=== PATIENT | female | born 1970 | race Caucasian/White ===

== ENCOUNTER → 2022-01-12 10:55 | Outpatient (BNVA) | payer BC, SELFPAY | PROVIDERS: Visit Provider Family Medicine | DX: I48.91 Unspecified atrial fibrillation (principal); J45.50 Severe persistent asthma, uncomplicated; E11.22 Type 2 diabetes mellitus with diabetic chronic kidney disease; I12.9 Hypertensive chronic kidney disease with stage 1 through stage 4 chronic kidney disease, or unspecified chronic kidney disease; N18.9 Chronic kidney disease, unspecified; D18.00 Hemangioma unspecified site; E78.2 Mixed hyperlipidemia; E66.01 Morbid (severe) obesity due to excess calories; Z79.01 Long term (current) use of anticoagulants | CPT/HCPCS: 80053; 80061; 83036; 84439; 84443; 85025 ==

== ENCOUNTER 2022-02-03 08:12 | Outpatient (CLI) | payer BC, MEDICAID, SELFPAY ==
--- NOTE | 2022-02-03 08:19 | XR_ITS ---
WS: [id number] RIGHT SHOULDER: 3 VIEW(S) TECHNIQUE: Internal and external rotation with Y view. HISTORY: Fall on 01/26/2022 COMPARISON: None available. Quality is limited by motion. No fracture or dislocation or soft tissue abnormality. Narrowing of the AC joints and glenohumeral joints. XR/XR shoulder RT min 2V* [id number] IMPRESSION: 1. No fracture identified but this examination is limited by motion on 2 of e films. 2. Mild AC joint and glenohumeral joint arthritis.
--- NOTE | 2022-02-03 08:19 | XR_ITS ---
WS: [id number] PELVIS: AP VIEW SUBMITTED HISTORY: fall twice last on 01/26/2022 COMPARISON: None available. Study compromised by body habitus. No fractures are identified. Symmetric appearance of the bones of the pelvis. No soft tissue abnormality. XR/XR pelvis min 3V [id number] IMPRESSION: No fracture identified.
== END 2022-02-03 08:13 | disposition home or self-care (01) ==
PROVIDERS: PCP Family Medicine; Visit Provider Family Medicine Adult Medicine
DX: M25.511 Pain in right shoulder (principal); M25.551 Pain in right hip; E66.01 Morbid (severe) obesity due to excess calories; W19.XXXA Unspecified fall, initial encounter; M19.011 Primary osteoarthritis, right shoulder
CPT/HCPCS: 72190; 73030

== ENCOUNTER → 2022-03-19 08:08 | Outpatient (BNVA) | payer BC, MEDICAID, SELFPAY | PROVIDERS: PCP Family Medicine; Visit Provider Internal Medicine Pulmonary Disease | DX: J45.50 Severe persistent asthma, uncomplicated (principal); Z79.52 Long term (current) use of systemic steroids; E66.01 Morbid (severe) obesity due to excess calories; Z68.45 Body mass index [BMI] 70 or greater, adult; R91.1 Solitary pulmonary nodule; G47.33 Obstructive sleep apnea (adult) (pediatric); R06.02 Shortness of breath; J45.909 Unspecified asthma, uncomplicated | CPT/HCPCS: 36415; 80053; 82785; 85025; 86003; 99204 ==

== ENCOUNTER 2022-04-10 13:52 | Outpatient (CLI) | payer BC, MEDICAID, SELFPAY ==
--- NOTE | 2022-04-10 14:30 | CT_ITS ---
WS: [id number] CT CHEST WITHOUT INTRAVENOUS CONTRAST HISTORY: lung nodule TECHNIQUE: Contiguous 5 mm axial imaging performed on the thorax. Coronal and sagittal reformats are submitted. All CT scans at [facility] use at least one of these dose optimization techniques: automated exposure control; mA and/or kV adjustment per patient size (includes targeted exams where dose is matched to clinical indication); or iterative reconstruction. CONTRAST: None DLP: 707.39 mGy.cm COMPARISON: None available. Quality of this examination is compromised by body habitus. Lungs and central airway: Well-circumscribed noncalcified pulmonary nodule in the posterior LEFT lowe r lobe measures 11 mm. Additional subsegmental linear atelectasis in the LEFT upper and LEFT lower lo bes. There is very mild groundglass attenuation within both lungs. No consolidation or pneumonia. Add itional subsegmental atelectasis in the RIGHT lower lobe and adjacent to the minor fissure. No endobr onchial lesion. Pleura: Normal. No pleural effusion. Heart and pericardium: Normal size heart with no pericardial effusion. Mediastinum and collin: No mediastinum or hilar adenopathy. Vessels: Dilated pulmonary artery to 3.9 cm. Normal size aorta. Chest wall and lower neck: No soft tissue masses. Upper abdomen: Small hiatal hernia. Prior cholecystectomy. Osseous structures: Degenerative disc disease throughout the thoracic spine. No fracture identified. CT/CT chest wo con [id number] IMPRESSION: 1. Quality of this examination is compromised by body habitus. 2. LEFT lower lobe well-circumscribed pulmonary nodule measures 11 mm. No prio r studies for comparison to evaluate for stability. Recommend PET/CT imaging ve rsus [address] follow-up for stability. 3. Additional subsegmental areas of atelectasis bilaterally. 4. Prior cholecystectomy. 5. Pulmonary hypertension.
== END 2022-04-10 13:53 | disposition home or self-care (01) ==
PROVIDERS: PCP Family Medicine; Visit Provider Family Medicine
DX: R91.1 Solitary pulmonary nodule (principal); J98.11 Atelectasis; Z90.49 Acquired absence of other specified parts of digestive tract; I27.20 Pulmonary hypertension, unspecified
CPT/HCPCS: 71250

== ENCOUNTER → 2022-04-20 12:33 | Outpatient (BNVA) | payer BC, MEDICAID, SELFPAY | PROVIDERS: PCP Family Medicine; Visit Provider Internal Medicine Cardiovascular Disease | DX: I48.91 Unspecified atrial fibrillation (principal); I13.0 Hypertensive heart and chronic kidney disease with heart failure and stage 1 through stage 4 chronic kidney disease, or unspecified chronic kidney disease; E11.22 Type 2 diabetes mellitus with diabetic chronic kidney disease; N18.9 Chronic kidney disease, unspecified; I50.9 Heart failure, unspecified; Z79.84 Long term (current) use of oral hypoglycemic drugs; E78.2 Mixed hyperlipidemia; E66.01 Morbid (severe) obesity due to excess calories; Z68.45 Body mass index [BMI] 70 or greater, adult | CPT/HCPCS: 99204 ==

== ENCOUNTER → 2022-04-23 10:33 | Outpatient (BNVA) | payer BC, MEDICAID, SELFPAY | PROVIDERS: PCP Family Medicine; Visit Provider Internal Medicine Pulmonary Disease | DX: J82.83 Eosinophilic asthma (principal); R91.1 Solitary pulmonary nodule; I48.91 Unspecified atrial fibrillation; Z99.81 Dependence on supplemental oxygen; Z79.01 Long term (current) use of anticoagulants; I50.9 Heart failure, unspecified; J45.50 Severe persistent asthma, uncomplicated; Z79.52 Long term (current) use of systemic steroids; Z68.45 Body mass index [BMI] 70 or greater, adult; E66.2 Morbid (severe) obesity with alveolar hypoventilation | CPT/HCPCS: 99214 ==

== ENCOUNTER → 2022-05-04 14:47 | Outpatient (BNVA) | payer BC, MEDICAID, SELFPAY | PROVIDERS: PCP Family Medicine; Visit Provider Family Medicine | DX: M54.16 Radiculopathy, lumbar region (principal); M62.838 Other muscle spasm; E66.01 Morbid (severe) obesity due to excess calories; R73.9 Hyperglycemia, unspecified; I50.9 Heart failure, unspecified; I48.91 Unspecified atrial fibrillation; I10 Essential (primary) hypertension | CPT/HCPCS: 80048; 83036; 83735; 83880 ==

== ENCOUNTER 2022-05-22 12:50 | Outpatient (CLI) | payer BC, MEDICAID, SELFPAY ==
--- NOTE | 2022-05-22 13:00 | USCV_ITS ---
Karly Sotomayor Age: 51 Gender: F : 1970 Exam Date: 05/22/2022 13:05 Ordering Phys: Fermin Flynn MD Technologist: Vanessa Miranda Exam Location: [facility] [place] Indication: LV and PHTN BP: 120 / 82 HR: 93 Rhythm: Sinus Technical Quality: Poor because of body habitus MEASUREMENTS (Male / Female) Normal Values 2D ECHO LV Diastolic Diameter PLAX 5.0 cm 4.2 - 5.9 / 3.9 - 5.3 cm LV Systolic Diameter PLAX 4.1 cm LV Chamber Size 1.7 cm IVS Diastolic Thickness 1.6 cm 0.6 - 1.0 / 0.6 - 0.9 cm IVS Systolic Thickness 1.7 cm LVPW Diastolic Thickness 2.1 cm 0.6 - 1.0 / 0.6 - 0.9 cm LVPW Systolic Thickness 1.7 cm RV Chamber Size 3.9 cm LVOT Diameter 2.2 cm LV Ejection Fraction 2D Teich 36.5 % LV Ejection Fraction MOD 2C 75.8 % LV Ejection Fraction 2C AL 76.9 % LA Diameter 4.4 cm LA Width 3.7 cm LA Height 5.0 cm RA Width 3.8 cm RA Height 5.1 cm Aorta at Sinotubular Diameter 3.0 cm IVC Diameter 3.2 cm M-MODE Aortic Annulus Diameter 4.2 cm LA Ao Ratio MM 1.3 MV E Point Septal Separation 0.5 cm DOPPLER AV Peak Velocity 170.0 cm/s LVOT Peak Velocity 116.0 cm/s AV Area Cont Eq vti 2.9 cm squared AV Area Cont Eq pk 2.6 cm squared MV Area PHT 4.0 cm squared Mitral E to A Ratio 1.5 MV E' Velocity 60.0 cm/s Mitral E to MV E' Ratio 8.6 Mitral E to LV E' Lateral Ratio 7.5 Mitral E to LV E' Septal Ratio 9.9 TR Peak Velocity 261.9 cm/s TR Peak Gradient 27.4 mmHg TR Mean Velocity 250.6 cm/s TR Mean Gradient 28.7 mmHg TR Velocity Time Integral 96.0 cm TV Peak E Velocity 66.0 cm/s Right Atrial Pressure 15.0 mmHg Pulmonary Artery Systolic Pressu 42.4 mmHg PV Peak Velocity 143.0 cm/s RV Acceleration Time 0.1 s RV Ejection Time 0.3 s RV AcT/ET 0.5 FINDINGS Left Ventricle Left ventricle is normal in size. LV systolic function is normal with EF 55 to 60%. No regional wall motion abnormalities are seen. Right Ventricle RV is normal in size and function. Right Atrium Normal in size Left Atrium Normal in size Mitral Valve Mitral valve is normal structurally. No significant stenosis or regurgitation seen. Aortic Valve Aortic valve is not well visualized. No significant stenosis or regurgitation seen. Tricuspid Valve Trace tricuspid regurgitation. Insufficient TR jet to calculate RVSP Pulmonic Valve Grossly normal Pericardium Normal Aorta Normal in size IVC CONCLUSIONS Limited quality echocardiogram because of poor ultrasonic windows. LV systolic function is normal with EF of 55 to 60%. No significant valvular abnormalities seen. Trace tricuspid regurgitation. No comparison studies are available Rubens Gomez MD (Electronically Signed) Final Date: 01 June 2022 09:45 S
== END 2022-05-22 12:51 | disposition home or self-care (01) ==
LOC: RAD 12:50
PROVIDERS: PCP Family Medicine; Visit Provider Internal Medicine Pulmonary Disease
DX: E66.01 Morbid (severe) obesity due to excess calories (principal); I07.1 Rheumatic tricuspid insufficiency
CPT/HCPCS: 93306; 99214

== ENCOUNTER 2022-06-30 09:47 | Observation (INO) | payer MEDICAID, SELFPAY ==
[2022-06-30] VITALS (64 sets, daily range): BP systolic 110–171; BP diastolic 64–88; PULSE 76–94; RESP 14–32; TEMP 36.2–36.8; O2SAT 87–100; BMI 96.5
--- NOTE | 2022-06-30 09:50 | ECG_ITS ---
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 Measurements Intervals [place] Rate: 81 P: 62 MS: 160 QRS: 59 QRSD: 143 T: 48 QT: 402 QTc: 468 Interpretive Statements SINUS RHYTHM RIGHT BUNDLE BRANCH BLOCK No previous ECG available for comparison Electronically Signed On 06-30-2022 10:40:43 CDT by Corrina Frazier M.D. [id number]
--- NOTE | 2022-06-30 09:50 | XRR_ITS ---
PROCEDURE INFORMATION: Exam: XR Chest Exam date and time: 06/30/2022 9:59 AM Age: 52 years old Clinical indication: Shortness of breath; Radiating and left-sided; Patient HX: History--chest pain since sat that just keeps increasing. PT states the pain is under her left breast and radiates to her back. Pain level is now at a 7-8 and was at a 6 per intern retail just minutes before. PT has HX of congestive heart failure and edema. SOB and headaches are also currently an issue; Additional info: Dyspnea/cough TECHNIQUE: Imaging protocol: Radiologic exam of the chest. Views: 1 view. COMPARISON: CT chest wo con [id number] 04/10/2022 2:14 PM FINDINGS: Lungs: There are normal lung volumes. Mild bilateral perihilar interstitial opacities are seen with some confluence in the lung bases. These findings may represent mild pulmonary edema. Underlying interstitial pneumonia cannot be completely excluded. Recommend correlation with clinical findings and follow-up. Pleural spaces: No pleural effusion. No pneumothorax. Heart/Mediastinum: Normal heart size. Normal mediastinum. Midline trachea. Bones/joints: No acute osseous abnormalities seen. Soft tissues: Multiple external densities are seen overlying the chest, limiting assessment. XR/XR chest 1V portable [id number] IMPRESSION: Mild bilateral perihilar interstitial opacities with some confluence in the lung bases. These findings may represent mild pulmonary edema. Underlying interstitial pneumonia cannot be completely excluded. Recommend correlation with clinical findings and follow-up.
--- NOTE | 2022-06-30 09:56 | W.ED.CHESTPA ---
HPI - Chest Pain General: Chief Complaint: Chest Pain Stated Complaint: CHEST PAIN Time Seen by Provider: 06/30/22 09:49 Source: patient Mode of arrival: ambulatory History of Present Illness: 52-year-old female presents emergency room from primary care doctor's office. She has been having chest pain for the last 3 days. Patient has no history of any coronary artery disease presented to the primary care doctor's office with O2 sat at 80% on room air. They were able to get up to 92% with 2 L by nasal cannula on arrival here she is conversationally dyspneic with continued chest pain. She denies any recent vomiting or diarrhea she had had a little bit of low-grade temperature. She was given 324 of aspirin in route as well as sublingual nitro and an inch of Nitropaste. Chest discomfort has improved some. She said this [facility] began with [facility] she had written note scooter cart to the back of the store the cart they did not have another cart so she had to walk back to her vehicle in the parking lot which precipitated episode of chest pain which had lasted since. Patient has a history of atrial fibrillation and congestive heart failure she is on apixaban. She denies being diabetic but her random glucose by EMS was in excess of 200. She is not currently on any medications but tells me they have been watching her glycosylated hemoglobin. complaint: chest pain Onset (ago): day(s) (3) Timing of current episode: episodic Prior episodes: Yes Onset: during exertion Pain location: right chest Pain radiation: none Severity: mild Quality: aching and heaviness Relieving factors: nothing Exacerbating factors: exertion Associated symptoms: Reports dyspnea and leg edema; Deny abdominal pain, diaphoresis, fever(s), nausea, palpitations, sense of impending doom, syncope or vomiting Treatment prior to arrival: aspirin, nitroglycerin and oxygen Review of Systems Const: Denies: fever(s), chills, fatigue, malaise or diaphoresis ENMT: Denies: throat pain, ear or mastoid pain, nasal discharge or nasal congestion Card: Reports: chest pain, edema and swelling of feet/ankles; Denies: palpitations, irregular heart rhythm or syncope Resp: Reports: dyspnea GI: Denies: abdominal pain, nausea or vomiting : Denies: flank pain, difficulty voiding, dysuria, urinary frequency or urinary urgency Skin/Breast: Denies: rash or pruritus PFSH ED PFSH: Medical History Afib Atrial fibrillation Chest pain CHF (congestive heart failure) Chronic anticoagulation CKD (chronic kidney disease) Depression Diabetes mellitus type 2, uncontrolled, with complications Diabetic retinopathy Essential hypertension Mixed dyslipidemia Morbid obesity with BMI of 70 and over, adult 06/30/2022 96.5 Obesity hypoventilation syndrome Obstructive sleep apnea Right bundle branch block Severe persistent asthma dependent on systemic steroids Solitary pulmonary nodule Steroid dependence Surgical History History of hysterectomy S/P cholecystectomy Family History Mother Myocardial infarct Stroke Hypertension Father Myocardial infarct Social History Smoking and tobacco status: never smoked Alcohol intake: never Female Reproductive History: Spontaneous abortions: No Physical Exam Const: GENERAL APPEARANCE: cooperative and comfortable ORIENTATION/CONSCIOUSNESS: Yes awake, Yes oriented to person, Yes oriented to place and Yes oriented to time HENMT: COMMON NORMALS: normocephalic and atraumatic HEAD & SCALP: normocephalic and atraumatic Resp: COMMON NORMALS: normal respiratory effort, No retractions, No use of accessory muscles and clear to auscultation bilaterally AUSCULTATION: clear to auscultation bilaterally Cardio: COMMON NORMALS: regular rate, regular rhythm and No murmurs present (Cardio) RATE: regular rate RHYTHM: regular rhythm GI: COMMON NORMALS: Soft to palpation and No hepatosplenomegaly present AUSCULTATION: Yes normoactive bowel sounds PALPATION: Yes Soft to palpation, No Tenderness to palpation present (GI), No Guarding due to palpation present (GI) and Yes No hepatosplenomegaly present Extremity: COMMON NORMALS: capillary refill normal and no calf tenderness Neuro: SENSORIUM/ORIENTATION: Yes oriented to person, Yes oriented to place and Yes oriented to time Skin: COMMON NORMALS: no rashes or lesions noted GENERAL SKIN EXAM: no rashes or lesions noted Course Vital Signs: Vital signs: Vital Signs Temperature 97.8 F 07/01/22 14:53 Pulse Rate 88 07/01/22 14:53 Respiratory Rate 16 07/01/22 14:53 Blood Pressure 135/82 07/01/22 14:53 Pulse Oximetry 94 07/01/22 14:53 Oxygen Delivery Me thod 07/01/22 12:00 Oxygen Flow Rate 3 07/01/22 11:33 MDM - Chest Pain Medical Decision Making Worsening congestive heart failure. Patient has severe hypoventilation due to super morbid obesity with a BMI of 96.5. She also has severe apnea she is having some chest pain as well. Patient will be admitted discussed with hospitalist. COVID swab was done and is negative she was diuresed to the emergency room had some improvement. Orders written. Medical Records I reviewed the patient's medical records. Lab Data I reviewed the patient's lab results. : 06/30/22 09:55 07/01/22 05:16 Radiology Impressions Chest X-Ray 06/30/22 09:50 IMPRESSION: Mild bilateral perihilar interstitial opacities with some confluence in the lung bases. These findings may represent mild pulmonary edema. Underlying interstitial pneumonia cannot be completely excluded. Recommend correlation with clinical findings and follow-up. Chest CTA 06/30/22 12:52 IMPRESSION: Limited diagnostic examination due to body habitus and suboptimal opacification of the pulmonary arteries. 1. Proximal main pulmonary arteries are normal. Segmental and subsegmental pulmonary arteries not well evaluated. 2. Stable 11 mm pulmonary nodule LEFT lower lobe. 3. Perihilar hazy groundglass infiltrates throughout both lungs with air trapping and bronchovascular thickening. Findings suspicious for interstitial pulmonary edema versus less likely viral pneumonia/Covid 19 pneumonia. 4. Subsegmental atelectasis in the lung bases with trace pleural fluid. No focal pneumonia. 5. Prior cholecystectomy. 6. Cardiomegaly. Notified Yoni Chapman DO at 06/30/2022 1:57 PM. Laboratory Results WBC 9.9 10^3/uL (4.0-10.0) 06/30/22 09:55 RBC 4.28 10^6/uL (4.1-5.3) 06/30/22 09:55 Hgb 12.5 g/dL (11.5-15.3) 06/30/22 09:55 Hct 40.1 % (37.0-47.0) 06/30/22 09:55 MCV 93.7 fl (81-99) 06/30/22 09:55 MCH 29.2 pg (28.0-34.0) 06/30/22 09:55 MCHC 31.2 g/dL (30.0-36.0) 06/30/22 09:55 RDW 13.2 % (12.1-15.1) 06/30/22 09:55 Plt Count 194 10^3/cmm (130-400) 06/30/22 09:55 MPV 10.1 fL (7.4-10.4) 06/30/22 09:55 Neut % (Auto) 78.2 % 06/30/22 09:55 Lymph % (Auto) 13.1 % 06/30/22 09:55 [place] % (Auto) 6.3 % 06/30/22 09:55 Eos % (Auto) 1.5 % 06/30/22 09:55 Baso % (Auto) 0.3 % 06/30/22 09:55 Neut # (Auto) 7.73 10^3/uL (1.8-7.7) H 06/30/22 09:55 Lymph # (Auto) 1.3 10^3/uL (0.8-4.8) 06/30/22 09:55 [place] # (Auto) 0.6 10^3/uL (0.2-0.9) 06/30/22 09:55 Eos # (Auto) 0.2 10^3/uL (0.0-0.8) 06/30/22 09:55 Baso # (Auto) 0.0 10^3/uL (0.0-0.1) 06/30/22 09:55 Nucleated RBC % (auto) 0 % 06/30/22 09:55 Nucleated RBCs # 0.0 /100WBC 06/30/22 09:55 Specimen Type Arterial 06/30/22 10:36 Sample Site Radial, left 06/30/22 10:36 ABG pH 7.38 (7.35-7.45) 06/30/22 10:36 ABG pCO2 45.0 mmHg (35-45) 06/30/22 10:36 ABG pO2 77.4 mmHg (80.0-100.0) L 06/30/22 10:36 ABG HCO3 26.4 mmol/L (22-26) H 06/30/22 10:36 ABG O2 Saturation 95.8 06/30/22 10:36 ABG Base Excess 0.8 mmol/L (-2.0-2.0) 06/30/22 10:36 Florin Test Pos 06/30/22 10:36 A-a O2 Gradient 2.3 mmHg (5-10) L 06/30/22 10:36 Hematocrit 37.3 % (37-47) 06/30/22 10:36 Hgb O2 Saturation 93.6 % (95-100) L 06/30/22 10:36 Carboxyhemoglobin 1.4 %THgb (0.4-20.1) 06/30/22 10:36 Methemoglobin 0.8 % (0.4-1.5) 06/30/22 10:36 Total Hemoglobin 12.2 g/dL (12-16) 06/30/22 10:36 Sodium 138.0 mmol/L (131-143) 06/30/22 10:36 Potassium 4.3 mmol/L (3.5-5.0) 06/30/22 10:36 Glucose 169.0 mg/dL (70-115) H 06/30/22 10:36 Ionized Calcium 1.2 mmol/L (1.1-1.4) 06/30/22 10:36 O2 Delivery Device Nc 06/30/22 10:36 O2 Liters/Min 5.0 % 06/30/22 10:36 Therapist Respiratory ID Cak 06/30/22 10:36 Sodium 138 mmol/L (136-145) 06/30/22 09:55 Potassium 4.5 mmol/L (3.5-5.1) 06/30/22 09:55 Chloride 101 mmol/L (98-107) 06/30/22 09:55 Carbon Dioxide 27 mmol/L (22-29) 06/30/22 09:55 Anion Gap 14.5 (5-19) 06/30/22 09:55 BUN 13 mg/dL (6-20) 06/30/22 09:55 Creatinine 0.5 mg/dL (0.5-0.9) 06/30/22 09:55 GFR Calculation 129.1 mL/min (90-130) 06/30/22 09:55 Glucose 168 mg/dL (65-115) H 06/30/22 09:55 Calculated Osmolality 290 mOsm/kg (285-295) 06/30/22 09:55 Lactic Acid 1.3 mmol/L (0.5-2.2) 06/30/22 09:58 Calcium 9.2 mg/dL (8.5-10.5) 06/30/22 09:55 Total Bilirubin 0.5 mg/dL (0.15-1.2) 06/30/22 09:55 AST 13 U/L (0-32) 06/30/22 09:55 ALT 19 U/L (0-33) 06/30/22 09:55 Alkaline Phosphatase 132 U/L (35-105) H 06/30/22 09:55 Creatine Kinase 53 U/L (26-192) 06/30/22 09:55 Troponin T Baseline 15 ng/L (0-10) H 06/30/22 09:55 Troponin T 120 Minute 11.11 ng/L (0-10) H 06/30/22 11:30 Delta Troponin T -3.89 ABS# (0-10) L 06/30/22 11:30 NT-Pro-B Natriuret Pep 51 pg/mL (0-125) 06/30/22 09:55 Total Protein 6.5 g/dL (6.6-8.7) L 06/30/22 09:55 Albumin 3.9 g/dL (3.5-5.2) 06/30/22 09:55 Globulin 2.6 g/dL (1.3-4.6) 06/30/22 09:55 Procalcitonin 0.03 ng/mL (0-0.5) 06/30/22 11:30 Prolactin 22.70 ng/mL (4.8-23.3) 06/30/22 09:55 Prolactin Cancelled 06/30/22 09:55 Urine Color Yellow (Yellow) 06/30/22 10: Urine Appearance Clear (CLEAR) 06/30/22 10:22 Urine pH 6 (5-7) 06/30/22 10: Ur Specific [place] 1.015 (1.005-1.030) 06/30/22 10: Urine Protein Neg (Negative) 06/30/22 10: Urine Glucose (UA) Norm (Normal) 06/30/22 10:22 Urine Ketones Negative (Negative) 06/30/22 10:22 Urine Blood 2+ (Negative) H 06/30/22 10:22 Urine Nitrate Negative (Negative) 06/30/22 10:22 Urine Bilirubin Neg (Negative) 06/30/22 10:22 Urine Urobilinogen Norm mg/dL (Negative) 06/30/22 10:22 Ur Leukocyte Esterase Negative (Negative) 06/30/22 10:22 Urine RBC 5-10 /hpf (0-2) H 06/30/22 10:22 Urine WBC 0-4 /hpf (0-5) H 06/30/22 10:22 Ur Squamous Epith Cells 0-4 /hpf (0-5) H 06/30/22 10: Amorphous Sediment Not Reportable 06/30/22 10:22 Urine Bacteria Trace /hpf (NONE) 06/30/22 10:22 Coronavirus 229E (PCR) Not detected (NOT DETECT) 06/30/22 14:16 SARS-CoV-2 (PCR) Not detected (NOT DETECT) 06/30/22 14:16 Discharge Plan Discharge Patient Disposition: Admitted As Inpatient Admit Provider: Va Armas Clinical Impression: CHF (congestive heart failure), Morbid obesity with BMI of 70 and over, adult, Diabetes mellitus type 2, uncontrolled, with complications, CKD (chronic kidney disease), Atypical chest pain, Atrial fibrillation, Hypoventilation associated with obesity Condition: Stable Discharge Diet: Cardiac Discharge Activity: Increase activity as tolerated Coding Level of Care Code ED Rn Telephone Triage for Chg Fwd Exam Detailed
--- NOTE | 2022-06-30 10:06 | PC.NURSE ---
PT PLACED ON CONTINUOUS NIBP, SPO2, AND CM
[2022-06-30 10:08] LABS: Basophils % 0.3 %; Eosinophils # 0.2 10^3/uL (0.0-0.8); Eosinophils % 1.5 %; Hematocrit 40.1 % (37.0-47.0); Hemoglobin 12.5 g/dL (11.5-15.3); Lymphocytes # 1.3 10^3/uL (0.8-4.8); Lymphocytes % 13.1 %; Mean Corpuscular HGB Conc 31.2 g/dL (30.0-36.0); Mean Corpuscular Hemoglobin 29.2 pg (28.0-34.0); Mean Corpuscular Volume 93.7 fl (81-99); Mean Platelet Volume 10.1 fL (7.4-10.4); Monocytes # 0.6 10^3/uL (0.2-0.9); Monocytes % 6.3 %; Neutrophils # 7.73 10^3/uL (1.8-7.7); Neutrophils % 78.2 %; Nucleated Red Blood Cells % 0 %; Platelet Count 194 10^3/cmm (130-400); Red Blood Count 4.28 10^6/uL (4.1-5.3); Red Cell Distribution Width 13.2 % (12.1-15.1); White Blood Count 9.9 10^3/uL (4.0-10.0)
[2022-06-30 10:22] LABS: Lactic Sepsis W/Reflex 1.3 mmol/L (0.5-2.2)
[2022-06-30 10:29] LABS: Troponin(5th) Baseline 15 ng/L (0-10)
[2022-06-30 10:36] LABS: Alanine Aminotransferase 19 U/L (0-33); Albumin Level 3.9 g/dL (3.5-5.2); Alkaline Phosphatase 132 U/L (35-105); Aspartate Amino Transferase 13 U/L (0-32); Blood Urea Nitrogen 13 mg/dL (6-20); Calcium 9.2 mg/dL (8.5-10.5); Carbon Dioxide 27 mmol/L (22-29); Chloride 101 mmol/L (98-107); Creatine Phosphokinase 53 U/L (26-192); Globulin 2.6 g/dL (1.3-4.6); Glomerular Filtration Rate 129.1 mL/min (90-130); Glucose 168 mg/dL (65-115); NT Pro B Type Natriuretic Pept 51 pg/mL (0-125); Osmolality Calculated 290 mOsm/kg (285-295); Sodium 138 mmol/L (136-145); Total Bilirubin 0.5 mg/dL (0.15-1.2); Total Protein 6.5 g/dL (6.6-8.7)
[2022-06-30 10:41] LABS: Anion Gap 14.5 (5-19); Potassium 4.5 mmol/L (3.5-5.1)
[2022-06-30 10:44] LABS: Add Urine Culture? No; Add Urine Microscopic? YES; Bacteria Urine TRACE /hpf; Bilirubin Urine Neg (Negative); Blood Urine 2+ (Negative); Glucose Urine UA Norm (Normal); Ketones Urine Negative (Negative); Leukocyte Esterase Urine Negative (Negative); Nitrate Urine Negative (Negative); Protein Urine Neg (Negative); Specific Gravity, Urine 1.015 (1.005-1.030); Squamous Epithelial Cell Urine 0-4 /hpf (0-5); Urine Appearance Clear (CLEAR); Urine Color Yellow (Yellow); Urobilinogen Urine Norm (Negative); WBC Urine 0-4 /hpf (0-5); pH Urine 6 (5-7)
[2022-06-30 10:47] LABS: ABG PH Result 7.38 (7.35-7.45); Alveolar-Arterial Oxygen Gradi 2.3 mmHg (5-10); Arterial Blood Gas Hematocrit 37.3 % (37-47); Base Excess ABG 0.8 mmol/L (-2.0-2.0); Blood Gas Allen Test Pos; Blood Gas Operator Identificat CAK; Blood Gas Sample Site Radial, left; Blood Gas Sample Type Arterial; Carboxyhemoglobin 1.4 %THgb (0.4-20.1); HCO3 ABG 26.4 mmol/L (22-26); HGB O2 Sat 93.6 % (95-100); Ionized Calcium Level - ABG 1.2 mmol/L (1.1-1.4); Methemoglobin 0.8 % (0.4-1.5); Oxygen Device NC; Oxygen Saturation ABG 95.8; PO2 ABG 77.4 mmHg (80.0-100.0); Potassium Level - ABG 4.3 mmol/L (3.5-5.0); Total Hemoglobin 12.2 g/dL (12-16)
[2022-06-30 11:58] LABS: Troponin 5 2HR 11.11 ng/L (0-10)
[2022-06-30 11:59] LABS: Troponin 5 2HR Delta -3.89 ABS# (0-10)
--- NOTE | 2022-06-30 11:59 | ECG_ITS ---
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 Measurements Intervals [place] Rate: 81 P: 60 [place]: 152 QRS: 57 QRSD: 149 T: 47 QT: 410 QTc: 477 Interpretive Statements SINUS RHYTHM RIGHT BUNDLE BRANCH BLOCK [120+ ms QRS DURATION, UPRIGHT V1, 40+ ms S IN I/aVL/V4/V5/V6] Compared to ECG 06/30/2022 09:57:01 No significant changes Electronically Signed On 07-01-2022 5:55:02 CDT by Corrina Frazier M.D. [id number]
[2022-06-30] MEDS: FUROsemide 10 mg/mL SDV 10mL 60 MG IVP (12:15)
--- NOTE | 2022-06-30 12:52 | CT_ITS ---
WS: [id number] CTA OF THE CHEST WITH PULMONARY EMBOLISM PROTOCOL TECHNIQUE: High-resolution contrast enhanced CTA of the chest with coronal and sagittal reformatted i mages with pulmonary embolism protocol. MIP images are also reviewed. CLINICAL INFORMATION: Hypoxia COMPARISON: CT April 10, 2022 DLP: 1112.[address] scans at [facility] use at least one of these dose optimization techniques: automated e xposure control; mA and/or kV adjustment per patient size (includes targeted exams where dose is matc hed to clinical indication); or iterative reconstruction. FINDINGS: Suboptimal examination due to contrast bolus and body habitus. Proximal main pulmonary arteries are normal. Segmental and subsegmental pulmonary arteries not well e valuated. Moderate chronic emphysematous changes with hyperinflation. Subsegmental atelectasis in tiny g bases. Diffuse perihilar hazy groundglass infiltrates throughout both lungs with air trapping can b e seen with interstitial pulmonary edema versus less likely viral pneumonia. Trace pleural fluid. Sta ble LEFT lower lobe nodule measuring 11 mm. Cardiomegaly. Normal caliber thoracic aorta. Normal GE junction. Cholecystectomy clips. Adrenal glands are normal. CT/CT angio chest PE protcl [id number] IMPRESSION: Limited diagnostic examination due to body habitus and suboptimal o pacification of the pulmonary arteries. 1. Proximal main pulmonary arteries are normal. Segmental and subsegmental pul monary arteries not well evaluated. 2. Stable 11 mm pulmonary nodule LEFT lower lobe. 3. Perihilar hazy groundglass infiltrates throughout both lungs with air layla ing and bronchovascular thickening. Findings suspicious for interstitial pulmon charbel edema versus less likely viral pneumonia/Covid 19 pneumonia. 4. Subsegmental atelectasis in the lung bases with trace pleural fluid. No foc al pneumonia. 5. Prior cholecystectomy. 6. Cardiomegaly. Notified Yoni Chapman DO at 06/30/2022 1:57 PM.
[2022-06-30] MEDS: iohexol 350 mg/mL 100 mL Btl IV (13:32)
[2022-06-30 13:38] LABS: Procalcitonin 0.03 ng/mL (0-0.5)
--- NOTE | 2022-06-30 14:02 | PC.PHAR ---
PT STATES SHE TAKES CARE OF HER OWN MEDICATIONS-EXT MED HISTORY SHOWS BUMETANIDE 2MG DAILY FILLED 06/02/22 30D/S RX WRITTEN 2MG BID PT STATES THE DR TOLD HER TO TAKE 1 TO 3 TABS BID PRN-RX WRITTEN 05/04/22 FOR METOPROLOL TARTRATE 75MG BID RX FILLED 50MG BID ON 06/04/22 30D/S PT STATES PHARMACY FILLED WRONG RX IT IS 75MG BID-RX FILLED 06/26/22 15D/S FOR BACTRIM DS 1 TAB DAILY-RX WRITTEN ON 03/19/22 1 TAB ON MON WED AND WED PT STATES TAKES LIKE ENTERED THREE TIMES A WEEK-NOTES ARE MADE IN THE PHARMACY COMMENTS
--- NOTE | 2022-06-30 14:43 | P.HP_ITS ---
Providers/Chief Complaint Admitting Physician: Va Armas MD Primary Care Provider: Pal Caballero DO Chief Complaint: Chest pain and difficulty breathing History of Present Illness Karly Sotomayor is a 52 year old female who presented originally to the general [facility]'s office with chief complaint of chest pain and difficulty breathing. She started getting more short of breath than her baseline on Wednesday. She is gotten to the point that she cannot really walk more than 5 steps without getting too short of breath. She utilizes assistive devices for ambulation. Ov er the weekend she was short of breath at rest as well as with exertion. She denies much cough. Has not really been wheezing per se. No upper respiratory symptoms. When she tries to take in a deep breath she has pain across her chest, predominantly on the right side and going through to her back. She has been using more than her baseline 2 to 3 L of oxygen at times. She has also utilized her CPAP sometimes when she has been very short of breath the last few days. No known sick contacts. At Dr. Sánchez's office she was found to have low oxygen levels dropping into the 80s and hypertension. She was sent to the emergency room for further evaluation. proBNP was 51. CTA of the chest showed normal proximal main pulmonary arteries. Subsegmental and segmental pulmonary arteries were not well evaluated. She had a stable pulmonary nodule in the left lower lobe. Perihilar hazy groundglass infiltrates were noted throughout both lungs with air trapping and bronchovascular thickening. Atelectasis was also noted. No areas of focal pneumonia were identified. Findings were described as suspicious for interstitial pulmonary edema versus less likely viral pneumonia or COVID-19. COVID PCR was negative. Patient received 60 mg of IV Lasix in the emergency room. In talking with her she does not take bumetanide regularly as the diuretic effect interferes with her activities of daily living. Last took a dose on or Wednesday last week. She does report increased swelling since then. At most she may take bumetanide maybe 3 times a week. She states that her weight was up about 50 pounds on the scale at her doctor's office today compared to prior. She is being admitted for continued diuresis in the setting of increased oxygen requirement. Review of Systems Const: Reports: change in weight (Gain) and fatigue; Denies: fever(s) or chills ENMT: Denies: throat pain or nasal congestion Card: Reports: chest pain, edema, dyspnea on exertion and orthopnea; Denies: syncope Resp: Reports: dyspnea and pain on inspiration; Denies: productive cough, wheezing, hemoptysis or chest congestion GI: Denies: abdominal pain, nausea, vomiting, diarrhea or constipation : Denies: hematuria Musc: Reports: back pain (Chronic) and extremity pain (Chronic) Skin/Breast: Reports: dry skin Neuro: Reports: numbness in extremities (Left foot chronically numb from prior trauma), weakness in extremities (Chronic) and difficulty walking (Chronic) Charles/Lymph: Reports: easy bruising Medications/Allergies Home Medications Medication Instructions Recorded Confirmed Last Taken Type black cohosh 200 mg capsule 200 mg PO QAM 01/12/22 06/30/22 06/30/22 07:00 History multivitamin 1 tab PO QAM 01/12/22 06/30/22 06/30/22 History omega 5-war-ctm-fish oil 100 1 cap PO DAILY@12 01/12/22 06/30/22 06/29/22 History mg-160 mg-1,000 mg capsule (Fish Oil) albuterol sulfate 2.5 mg/3 mL 2.5 mg (3 mL) inhalation Q6H PRN 02/05/22 06/30/22 Unknown Rx (0.083 %) solution for nebulization shortness of breath or wheezing #90 mL sulfamethoxazole 800 See Rx Instructions PO DAILY 03/19/22 06/30/22 Unknown History mg-trimethoprim 160 mg tablet apixaban 5 mg tablet (Eliquis) 5 mg PO BID atrial fib #60 tabs 04/01/22 06/30/22 06/30/22 07:00 Rx bumetanide 2 mg tablet 2 - 6 mg PO BID PRN Edema 04/20/22 06/30/22 Unknown History diphenhydramine HCl 25 mg capsule 25 mg PO BEDTIME 04/20/22 06/30/22 06/29/22 History (Benadryl) guaifenesin 400 mg tablet 400 mg PO BID 04/20/22 06/30/22 06/30/22 History metoprolol tartrate 75 mg tablet 75 mg PO BID #180 tabs 05/04/22 06/30/22 06/30/22 Rx semaglutide 0.25 mg or 0.5 mg (2 See Rx Instructions SUBCUT 06/02/22 06/30/22 06/30/22 Rx mg/1.5 mL) subcutaneous pen .COMPLEX #1.5 mL 0.25MG injector (Ozempic) budesonide-formoterol HFA 160 2 puff inhalation BID #10.2 grams 06/11/22 Unknown Rx mcg-4.5 mcg/actuation aerosol inhaler (Symbicort) tiotropium bromide 2.5 2 puff inhalation DAILY #4 grams 06/11/22 06/30/22 Unknown Rx mcg/actuation mist for inhalation (Spiriva Respimat) gabapentin 800 mg tablet 800 mg PO TID #90 tabs 06/22/22 06/30/22 06/30/22 Rx albuterol sulfate 90 mcg/actuation 1 inh inhalation QID PRN Shortness 06/30/22 06/30/22 Unknown History aerosol inhaler Of Breath atorvastatin 80 mg tablet 80 mg PO BEDTIME 06/30/22 06/30/22 06/29/22 History citalopram 20 mg tablet 20 mg PO BEDTIME 06/30/22 06/30/22 06/29/22 History cyclobenzaprine 10 mg tablet See Rx Instructions .Route .COMPLEX 06/30/22 06/30/22 06/30/22 History hydroxyzine HCl 25 mg tablet 25 mg PO TID 06/30/22 06/30/22 06/30/22 History magnesium oxide 200 mg PO DAILY@12 06/30/22 06/30/22 06/29/22 History montelukast 10 mg tablet 10 mg PO QAM breathing 06/30/22 06/30/22 06/30/22 History potassium chloride 20 mEq 20 meq PO DAILY@12 06/30/22 06/30/22 06/29/22 History tablet,extended release prednisone 20 mg tablet 20 mg PO QAM 06/30/22 06/30/22 06/30/22 History spironolactone 50 mg tablet 50 mg PO BEDTIME 06/30/22 06/30/22 06/29/22 History tramadol 50 mg tablet See Rx Instructions .Route .COMPLEX 06/30/22 06/30/22 06/30/22 History valsartan 80 mg tablet 80 mg PO BEDTIME 06/30/22 06/30/22 06/29/22 History Allergies Allergy/AdvReac Type Severity Reaction Status Date / Time adhesive tape Allergy ALGY-Bliste Verified 06/30/22 13:47 r latex Allergy ALGY-Bliste Verified 06/30/22 13:47 r Penicillins Allergy ALGY-Hives Verified 06/30/22 13:47 PFSH Acute PFSH: Medical History (Updated 06/30/22 @ 20:31 by Va Armas MD) Atrial fibrillation CHF (congestive heart failure) CKD (chronic kidney disease) Depression Diabetes mellitus type 2, uncontrolled, with complications Diabetic retinopathy Essential hypertension Mixed dyslipidemia Morbid obesity with BMI of 70 and over, adult 06/30/2022 96.5 Obesity hypoventilation syndrome Obstructive sleep apnea Right bundle branch block Severe persistent asthma dependent on systemic steroids Solitary pulmonary nodule Steroid dependence Surgical History (Updated 06/30/22 @ 20:30 by Va Armas MD) History of hysterectomy S/P cholecystectomy Family History Mother Myocardial infarct Stroke Hypertension Father Myocardial infarct Social History Smoking and tobacco status: never smoked Alcohol intake: never Female Reproductive History: Spontaneous abortions: No Vitals/I&O/Wt Last Vital Signs Temp 98.3 F 06/30/22 09:49 Pulse 80 06/30/22 12:22 Resp 16 06/30/22 12:22 BP 134/88 06/30/22 12:22 Pulse Ox 95 06/30/22 12:22 O2 Del Method 06/30/22 12:22 O2 Flow Rate 3 06/30/22 12:22 06/29/22 06/30/22 06/30/22 22:59 06:59 14:59 Output Total 4000 / 4000 Balance -4000 / -4000 Weight last 48 hrs Weight 263.084 kg Physical Exam Narrative: Constitutional: Awake and alert, able to provide history HEENT: Normocephalic, atraumatic, extraocular movements intact, dry lips, moist mucous membranes Neck: Large but supple Respiratory: Decreased breath sounds, no wheezing appreciated, no accessory muscle use Cardiovascular: Irregularly irregular Abdomen: Soft, obese, positive bowel sounds, nontender : Hairston catheter in place Extremities: No ankle edema Skin: Skin is dry mild stasis changes Neuro: Speech clear, face symmetric, moves all extremities Psych: Anxious, normal affect Urinary Catheter Management: Hairston: Cath Placed During This Visit: yes Urinary Catheter Date of Insertion: 06/30/22 Urinary Catheter Time of Insertion: 10:27 Data : 06/30/22 09:55 06/30/22 09:55 Other Labs: Radiology Impressions Chest X-Ray 06/30/22 09:50 IMPRESSION: Mild bilateral perihilar interstitial opacities with some confluence in the lung bases. These findings may represent mild pulmonary edema. Underlying interstitial pneumonia cannot be completely excluded. Recommend correlation with clinical findings and follow-up. Chest CTA 06/30/22 12:52 IMPRESSION: Limited diagnostic examination due to body habitus and suboptimal opacification of the pulmonary arteries. 1. Proximal main pulmonary arteries are normal. Segmental and subsegmental pulmonary arteries not well evaluated. 2. Stable 11 mm pulmonary nodule LEFT lower lobe. 3. Perihilar hazy groundglass infiltrates throughout both lungs with air trapping and bronchovascular thickening. Findings suspicious for interstitial pulmonary edema versus less likely viral pneumonia/Covid 19 pneumonia. 4. Subsegmental atelectasis in the lung bases with trace pleural fluid. No focal pneumonia. 5. Prior cholecystectomy. 6. Cardiomegaly. Notified Yoni Chapman DO at 06/30/2022 1:57 PM. Laboratory Results WBC 9.9 10^3/uL (4.0-10.0) 06/30/22 09:55 RBC 4.28 10^6/uL (4.1-5.3) 06/30/22 09:55 Hgb 12.5 g/dL (11.5-15.3) 06/30/22 09:55 Hct 40.1 % (37.0-47.0) 06/30/22 09:55 MCV 93.7 fl (81-99) 06/30/22 09:55 MCH 29.2 pg (28.0-34.0) 06/30/22 09:55 MCHC 31.2 g/dL (30.0-36.0) 06/30/22 09:55 RDW 13.2 % (12.1-15.1) 06/30/22 09:55 Plt Count 194 10^3/cmm (130-400) 06/30/22 09:55 MPV 10.1 fL (7.4-10.4) 06/30/22 09:55 Neut % (Auto) 78.2 % 06/30/22 09:55 Lymph % (Auto) 13.1 % 06/30/22 09:55 Greene % (Auto) 6.3 % 06/30/22 09:55 Eos % (Auto) 1.5 % 06/30/22 09:55 Baso % (Auto) 0.3 % 06/30/22 09:55 Neut # (Auto) 7.73 10^3/uL (1.8-7.7) H 06/30/22 09:55 Lymph # (Auto) 1.3 10^3/uL (0.8-4.8) 06/30/22 09:55 Greene # (Auto) 0.6 10^3/uL (0.2-0.9) 06/30/22 09:55 Eos # (Auto) 0.2 10^3/uL (0.0-0.8) 06/30/22 09:55 Baso # (Auto) 0.0 10^3/uL (0.0-0.1) 06/30/22 09:55 Nucleated RBC % (auto) 0 % 06/30/22 09:55 Nucleated RBCs # 0.0 /100WBC 06/30/22 09:55 Specimen Type Arterial 06/30/22 10:36 Sample Site Radial, left 06/30/22 10:36 ABG pH 7.38 (7.35-7.45) 06/30/22 10:36 ABG pCO2 45.0 mmHg (35-45) 06/30/22 10:36 ABG pO2 77.4 mmHg (80.0-100.0) L 06/30/22 10:36 ABG HCO3 26.4 mmol/L (22-26) H 06/30/22 10:36 ABG O2 Saturation 95.8 06/30/22 10:36 ABG Base Excess 0.8 mmol/L (-2.0-2.0) 06/30/22 10:36 Florin Test Pos 06/30/22 10:36 A-a O2 Gradient 2.3 mmHg (5-10) L 06/30/22 10:36 Hematocrit 37.3 % (37-47) 06/30/22 10:36 Hgb O2 Saturation 93.6 % (95-100) L 06/30/22 10:36 Carboxyhemoglobin 1.4 %THgb (0.4-20.1) 06/30/22 10:36 Methemoglobin 0.8 % (0.4-1.5) 06/30/22 10:36 Total Hemoglobin 12.2 g/dL (12-16) 06/30/22 10:36 Sodium 138.0 mmol/L (131-143) 06/30/22 10:36 Potassium 4.3 mmol/L (3.5-5.0) 06/30/22 10:36 Glucose 169.0 mg/dL (70-115) H 06/30/22 10:36 Ionized Calcium 1.2 mmol/L (1.1-1.4) 06/30/22 10:36 O2 Delivery Device Nc 06/30/22 10:36 O2 Liters/Min 5.0 % 06/30/22 10:36 Market Analyst ID Cak 06/30/22 10:36 Sodium 138 mmol/L (136-145) 06/30/22 09:55 Potassium 4.5 mmol/L (3.5-5.1) 06/30/22 09:55 Chloride 101 mmol/L (98-107) 06/30/22 09:55 Carbon Dioxide 27 mmol/L (22-29) 06/30/22 09:55 Anion Gap 14.5 (5-19) 06/30/22 09:55 BUN 13 mg/dL (6-20) 06/30/22 09:55 Creatinine 0.5 mg/dL (0.5-0.9) 06/30/22 09:55 GFR Calculation 129.1 mL/min (90-130) 06/30/22 09:55 Glucose 168 mg/dL (65-115) H 06/30/22 09:55 Calculated Osmolality 290 mOsm/kg (285-295) 06/30/22 09:55 Lactic Acid 1.3 mmol/L (0.5-2.2) 06/30/22 09:58 Calcium 9.2 mg/dL (8.5-10.5) 06/30/22 09:55 Total Bilirubin 0.5 mg/dL (0.15-1.2) 06/30/22 09:55 AST 13 U/L (0-32) 06/30/22 09:55 ALT 19 U/L (0-33) 06/30/22 09:55 Alkaline Phosphatase 132 U/L (35-105) H 06/30/22 09:55 Creatine Kinase 53 U/L (26-192) 06/30/22 09:55 Troponin T Baseline 15 ng/L (0-10) H 06/30/22 09:55 Troponin T 120 Minute 11.11 ng/L (0-10) H 06/30/22 11:30 Delta Troponin T -3.89 ABS# (0-10) L 06/30/22 11:30 NT-Pro-B Natriuret Pep 51 pg/mL (0-125) 06/30/22 09:55 Total Protein 6.5 g/dL (6.6-8.7) L 06/30/22 09:55 Albumin 3.9 g/dL (3.5-5.2) 06/30/22 09:55 Globulin 2.6 g/dL (1.3-4.6) 06/30/22 09:55 Procalcitonin 0.03 ng/mL (0-0.5) 06/30/22 11:30 Prolactin 22.70 ng/mL (4.8-23.3) 06/30/22 09:55 Prolactin Cancelled 06/30/22 09:55 Urine Color Yellow (Yellow) 06/30/22 10:22 Urine Appearance Clear (CLEAR) 06/30/22 10:22 Urine pH 6 (5-7) 06/30/22 10:22 Ur Specific [place] 1.015 (1.005-1.030) 06/30/22 10:22 Urine Protein Neg (Negative) 06/30/22 10:22 Urine Glucose (UA) Norm (Normal) 06/30/22 10:22 Urine Ketones Negative (Negative) 06/30/22 10:22 Urine Blood 2+ (Negative) H 06/30/22 10:22 Urine Nitrate Negative (Negative) 06/30/22 10:22 Urine Bilirubin Neg (Negative) 06/30/22 10:22 Urine Urobilinogen Norm mg/dL (Negative) 06/30/22 10:22 Ur Leukocyte Esterase Negative (Negative) 06/30/22 10:22 Urine RBC 5-10 /hpf (0-2) H 06/30/22 10:22 Urine WBC 0-4 /hpf (0-5) H 06/30/22 10:22 Ur Squamous Epith Cells 0-4 /hpf (0-5) H 06/30/22 10:22 Amorphous Sediment Not Reportable 06/30/22 10:22 Urine Bacteria Trace /hpf (NONE) 06/30/22 10:22 A&P Assessment and plan (1) CHF (congestive heart failure): Qualifiers: Heart failure chronicity: acute on chronic Heart failure type: diastolic Qualified Code(s): I50.33 - Acute on chronic diastolic (congestive) heart failure (2) Chest pain: Qualifiers: Chest pain type: chest pain on breathing Qualified Code(s): R07.1 - Chest pain on breathing (3) Obesity hypoventilation syndrome: (4) Obstructive sleep apnea: (5) Severe persistent asthma dependent on systemic steroids: (6) Essential hypertension: (7) Afib: Qualifiers: Atrial fibrillation type: longstanding persistent Qualified Code(s): I48.11 - Longstanding persistent atrial fibrillation (8) Chronic anticoagulation: Eliquis Plan Observation IV diuresis Maintain Hairston catheter for close monitoring of urine output Reviewed with patient the importance of regularly taking her diuretic therapy to try to avoid progressive buildup of fluid that might necessitate treatment in the hospital setting with IV diuresis. We talked about restricting salt intake, fluid restrictions, monitoring weight if she has a scale large enough at home or abdominal girth. Continue oxygen therapy, weaning to baseline as able CPAP with sleep Continue home ARB, beta-blockade and statin therapy Continue home Eliquis Continue home Celexa, cyclobenzaprine, gabapentin, hydroxyzine and tramadol Continue home prednisone, Singulair, guaifenesin, substitute duo nebs and Advair for home inhalers Continue prophylaxis dose Bactrim Sliding scale insulin for diabetes Recheck electrolytes in the morning Supportive care otherwise Plans were discussed with patient and she was given an opportunity to ask questions Anticipate discharge home with close outpatient follow-up Patient is eager to be discharged tomorrow given her planned wedding on Wednesday Full code Attestations Medical Necessity Statement*: Currently anticipate a stay less than two midnights in a patient with shortness of breath, chest pain and increased oxygen requirement. Clinically secondary to pulmonary edema and appears to be responding to diuresis already administered. We will continue IV diuresis and close monitoring as described Coding Level of Care Code Acute Retail Pharmacy Manager for Chg Fwd Diagnoses CHF (congestive heart failure) I50.33 Heart failure chronicity: acute on chronic Heart failure type: diastolic Chest pain R07.1 Chest pain type: chest pain on breathing Obesity hypoventilation syndrome E66.2 Obstructive sleep apnea G47.33 Severe persistent asthma dependent on systemic steroids J45.50; Z79.52 Essential hypertension I10 Afib I48.11 Atrial fibrillation type: longstanding persistent Chronic anticoagulation Z79.01
[2022-06-30 16:06] LABS: Adenovirus Not Detected (NOT DETECT); Chlamydia Pneumoniae Not Detected (NOT DETECT); Coronavirus 229E,HKU1,NL63,OC4 Not Detected (NOT DETECT); Human Metapneumovirus Not Detected (NOT DETECT); Human Rhinovirus/Enterovirus Not Detected (NOT DETECT); Influenza A Not Detected (NOT DETECT); Influenza A H1 Not Detected (NOT DETECT); Influenza A H1-2009 Not Detected (NOT DETECT); Influenza A H3 Not Detected (NOT DETECT); Influenza B Not Detected (NOT DETECT); Mycoplasma Pneumoniae Not Detected (NOT DETECT); Parainfluenza Virus Type 1 Not Detected (NOT DETECT); Parainfluenza Virus Type 2 Not Detected (NOT DETECT); Parainfluenza Virus Type 3 Not Detected (NOT DETECT); Parainfluenza Virus Type 4 Not Detected (NOT DETECT); Respiratory Syncytial Virus A Not Detected (NOT DETECT); Respiratory Syncytial Virus B Not Detected (NOT DETECT); SARS-COV-2 Not Detected (NOT DETECT)
[2022-06-30 22:00] LABS: Glucose Point of Care 112 mg/dL (70-110)
[2022-06-30] MEDS: gabapentin 400 mg Capsule 800 MG PO (22:13)
[2022-06-30] MEDS: apixaban 5 mg Tablet PO (22:13)
[2022-06-30] MEDS: atorvastatin 40 mg Tablet 80 MG PO (22:14)
[2022-06-30] MEDS: guaiFENesin 600 mg Tablet PO (22:15)
[2022-06-30] MEDS: diphenhydrAMINE 25 mg Capsule PO (22:18)
[2022-06-30] MEDS: citalopram 20 mg Tablet PO (22:18)
[2022-06-30] MEDS: metoprolol tartrate 50 mg Tablet 75 MG PO (22:22)
[2022-06-30] MEDS: cyclobenzaprine 10 mg Tablet 20 MG PO (23:27)
[2022-06-30] MEDS: TRAMadol 50 mg Tablet 100 MG PO (23:27)
[2022-07-01] VITALS (9 sets, daily range): BP systolic 127–144; BP diastolic 81–89; PULSE 72–97; RESP 16–24; TEMP 36.2–36.6; O2SAT 94–97
[2022-07-01] MEDS: FUROsemide 10 mg/mL SDV 10mL 60 MG IVP ×2 (00:46→11:56)
[2022-07-01] MEDS: predniSONE 20 mg Tablet PO (05:31)
[2022-07-01] MEDS: montelukast sodium 10 mg Tablet PO (05:31)
[2022-07-01 06:34] LABS: Blood Urea Nitrogen 10 mg/dL (6-20); Calcium 9.4 mg/dL (8.5-10.5); Carbon Dioxide 31 mmol/L (22-29); Chloride 102 mmol/L (98-107); Glomerular Filtration Rate 104.6 mL/min (90-130); Glucose 115 mg/dL (65-115); Magnesium 2.2 mg/dL (1.7-2.3); Osmolality Calculated 292 mOsm/kg (285-295); Phosphorus 3.7 mg/dL (2.5-4.5); Sodium 141 mmol/L (136-145)
[2022-07-01 06:40] LABS: Glucose Point of Care 103 mg/dL (70-110)
[2022-07-01] MEDS: cyclobenzaprine 10 mg Tablet PO ×2 (06:47→11:53)
[2022-07-01] MEDS: TRAMadol 50 mg Tablet PO ×2 (06:47→11:53)
[2022-07-01] MEDS: ipratropium-albuterol 3 mL Neb INHALATION ×2 (07:36→11:31)
[2022-07-01] MEDS: gabapentin 400 mg Capsule 800 MG PO (09:15)
[2022-07-01] MEDS: apixaban 5 mg Tablet PO (09:16)
[2022-07-01] MEDS: metoprolol tartrate 50 mg Tablet 75 MG PO (09:17)
[2022-07-01] MEDS: guaiFENesin 600 mg Tablet PO (09:18)
[2022-07-01] MEDS: magnesium oxide 400 mg tablet PO (09:18)
[2022-07-01] MEDS: potassium chloride ER 20 mEq Tablet PO (09:18)
[2022-07-01] MEDS: losartan 50 mg Tablet 25 MG PO (09:19)
[2022-07-01] MEDS: sulfamethoxazole-trimeth DS 160-800 mg Tablet 1 TAB PO (09:26)
--- NOTE | 2022-07-01 09:59 | PM.DCS ---
Discharge Providers Date of Admission: 06/30/22 14:26 Date of Discharge: July 01, 2022 Attending Provider at Admission: Va Armas MD Attending Provider at Discharge: Logan Dorado MD Primary Care Provider: Pal Caballero DO Diagnoses at Discharge Discharge Diagnosis (1) CHF (congestive heart failure): Status: Chronic Qualifiers: Heart failure type: diastolic Heart failure chronicity: acute on chronic Qualified Code(s): I50.33 - Acute on chronic diastolic (congestive) heart failure (2) Chest pain: Status: Acute Qualifiers: Chest pain type: chest pain on breathing Qualified Code(s): R07.1 - Chest pain on breathing (3) Obesity hypoventilation syndrome: Status: Chronic (4) Obstructive sleep apnea: Status: Chronic (5) Severe persistent asthma dependent on systemic steroids: Status: Chronic (6) Essential hypertension: Status: Chronic (7) Afib: Status: Acute Qualifiers: Atrial fibrillation type: longstanding persistent Qualified Code(s): I48.11 - Longstanding persistent atrial fibrillation (8) Chronic anticoagulation: Status: Chronic Reason for Visit Reason for Visit: Chest pain and difficulty breathing Hospital Course Hospital Course Please see H&P for detail In short Ms. Sotomayor who is a 52-year-old female who has significant history of sleep apnea, morbid obesity, CPAP dependent, A. fib on chronic anticoagulation, uses 3 to 4 L of oxygen at home, she is getting on Wednesday she presented to the hospital for worsening of shortness of breath she was diagnosed with diastolic heart failure exacerbation, she diuresed very well on IV Lasix, I have requested her to use Bumex on daily basis to the as needed and start taking Bumex 2 mg twice a day along potassium supplements, avoid anxiolytics and sedatives to avoid worsening of hypoxia or hypercapnic episodes, her oxygen requirement has not worsened CTA chest did not show any PE it was consistent with CHF exacerbation, at the time of discharge she is requiring 3 to 4 L of oxygen, she is excited to return home. Physical Exam Narrative: Morbid obese female Currently on 4 L of oxygen No acute respiratory distress Distended abdomen visceral obesity Lower extremity edema related to obesity and CHF exacerbation Awake and alert Nonfocal neuro exam S1, S2 variable Urinary Catheter Management: [place]: Cath Placed During This Visit: yes Reason for Continuing Indwelling Catheter: Acute Urinary Retention or Obstruction Urinary Catheter Date of Insertion: 06/30/22 Urinary Catheter Time of Insertion: 10:27 Discharge Data Studies Completed and Pending Completed Studies During Hospitalization Category Date Time Status CT angio chest PE protcl [id number] Stat Cat Scan 06/30/22 12:52 Completed XR chest 1V portable [id number] Stat Exams 06/30/22 09:50 Completed Radiology Impressions Chest X-Ray 06/30/22 09:50 IMPRESSION: Mild bilateral perihilar interstitial opacities with some confluence in the lung bases. These findings may represent mild pulmonary edema. Underlying interstitial pneumonia cannot be completely excluded. Recommend correlation with clinical findings and follow-up. Chest CTA 06/30/22 12:52 IMPRESSION: Limited diagnostic examination due to body habitus and suboptimal opacification of the pulmonary arteries. 1. Proximal main pulmonary arteries are normal. Segmental and subsegmental pulmonary arteries not well evaluated. 2. Stable 11 mm pulmonary nodule LEFT lower lobe. 3. Perihilar hazy groundglass infiltrates throughout both lungs with air trapping and bronchovascular thickening. Findings suspicious for interstitial pulmonary edema versus less likely viral pneumonia/Covid 19 pneumonia. 4. Subsegmental atelectasis in the lung bases with trace pleural fluid. No focal pneumonia. 5. Prior cholecystectomy. 6. Cardiomegaly. Notified Yoni Chapman DO at 06/30/2022 1:57 PM. Laboratory Results WBC 9.9 10^3/uL (4.0-10.0) 06/30/22 09:55 RBC 4.28 10^6/uL (4.1-5.3) 06/30/22 09:55 Hgb 12.5 g/dL (11.5-15.3) 06/30/22 09:55 Hct 40.1 % (37.0-47.0) 06/30/22 09:55 MCV 93.7 fl (81-99) 06/30/22 09:55 MCH 29.2 pg (28.0-34.0) 06/30/22 09:55 MCHC 31.2 g/dL (30.0-36.0) 06/30/22 09:55 RDW 13.2 % (12.1-15.1) 06/30/22 09:55 Plt Count 194 10^3/cmm (130-400) 06/30/22 09:55 MPV 10.1 fL (7.4-10.4) 06/30/22 09:55 Neut % (Auto) 78.2 % 06/30/22 09:55 Lymph % (Auto) 13.1 % 06/30/22 09:55 [place] % (Auto) 6.3 % 06/30/22 09:55 Eos % (Auto) 1.5 % 06/30/22 09:55 Baso % (Auto) 0.3 % 06/30/22 09:55 Neut # (Auto) 7.73 10^3/uL (1.8-7.7) H 06/30/22 09:55 Lymph # (Auto) 1.3 10^3/uL (0.8-4.8) 06/30/22 09:55 [place] # (Auto) 0.6 10^3/uL (0.2-0.9) 06/30/22 09:55 Eos # (Auto) 0.2 10^3/uL (0.0-0.8) 06/30/22 09:55 Baso # (Auto) 0.0 10^3/uL (0.0-0.1) 06/30/22 09:55 Nucleated RBC % (auto) 0 % 06/30/22 09:55 Nucleated RBCs # 0.0 /100WBC 06/30/22 09:55 Specimen Type Arterial 06/30/22 10:36 Sample Site Radial, left 06/30/22 10:36 ABG pH 7.38 (7.35-7.45) 06/30/22 10:36 ABG pCO2 45.0 mmHg (35-45) 06/30/22 10:36 ABG pO2 77.4 mmHg (80.0-100.0) L 06/30/22 10:36 ABG HCO3 26.4 mmol/L (22-26) H 06/30/22 10:36 ABG O2 Saturation 95.8 06/30/22 10:36 ABG Base Excess 0.8 mmol/L (-2.0-2.0) 06/30/22 10:36 Florin Test Pos 06/30/22 10:36 A-a O2 Gradient 2.3 mmHg (5-10) L 06/30/22 10:36 Hematocrit 37.3 % (37-47) 06/30/22 10:36 Hgb O2 Saturation 93.6 % (95-100) L 06/30/22 10:36 Carboxyhemoglobin 1.4 %THgb (0.4-20.1) 06/30/22 10:36 Methemoglobin 0.8 % (0.4-1.5) 06/30/22 10:36 Total Hemoglobin 12.2 g/dL (12-16) 06/30/22 10:36 Sodium 138.0 mmol/L (131-143) 06/30/22 10:36 Potassium 4.3 mmol/L (3.5-5.0) 06/30/22 10:36 Glucose 169.0 mg/dL (70-115) H 06/30/22 10:36 Ionized Calcium 1.2 mmol/L (1.1-1.4) 06/30/22 10:36 O2 Delivery Device Nc 06/30/22 10:36 O2 Liters/Min 5.0 % 06/30/22 10:36 Vocational Childcare Teacher ID Cak 06/30/22 10:36 Sodium 141 mmol/L (136-145) 07/01/22 05:16 Potassium 4.0 mmol/L (3.5-5.1) 07/01/22 05:16 Chloride 102 mmol/L (98-107) 07/01/22 05:16 Carbon Dioxide 31 mmol/L (22-29) H 07/01/22 05:16 Anion Gap 12.0 (5-19) 07/01/22 05:16 BUN 10 mg/dL (6-20) 07/01/22 05:16 Creatinine 0.6 mg/dL (0.5-0.9) 07/01/22 05:16 GFR Calculation 104.6 mL/min (90-130) 07/01/22 05:16 Glucose 115 mg/dL (65-115) 07/01/22 05:16 POC Glucose 103 mg/dL (70-110) 07/01/22 06:27 Calculated Osmolality 292 mOsm/kg (285-295) 07/01/22 05:16 Lactic Acid 1.3 mmol/L (0.5-2.2) 06/30/22 09:58 Calcium 9.4 mg/dL (8.5-10.5) 07/01/22 05:16 Phosphorus 3.7 mg/dL (2.5-4.5) 07/01/22 05:16 Magnesium 2.2 mg/dL (1.7-2.3) 07/01/22 05:16 Total Bilirubin 0.5 mg/dL (0.15-1.2) 06/30/22 09:55 AST 13 U/L (0-32) 06/30/22 09:55 ALT 19 U/L (0-33) 06/30/22 09:55 Alkaline Phosphatase 132 U/L (35-105) H 06/30/22 09:55 Creatine Kinase 53 U/L (26-192) 06/30/22 09:55 Troponin T Baseline 15 ng/L (0-10) H 06/30/22 09:55 Troponin T 120 Minute 11.11 ng/L (0-10) H 06/30/22 11:30 Delta Troponin T -3.89 ABS# (0-10) L 06/30/22 11:30 Troponin T Hi Sens 6Hr 9.70 ng/L (0-10) 06/30/22 16:05 Troponin T Hi Sens 6Hr Delta -5.30 ng/L (0-12) L 06/30/22 16:05 NT-Pro-B Natriuret Pep 51 pg/mL (0-125) 06/30/22 09:55 Total Protein 6.5 g/dL (6.6-8.7) L 06/30/22 09:55 Albumin 3.9 g/dL (3.5-5.2) 06/30/22 09:55 Globulin 2.6 g/dL (1.3-4.6) 06/30/22 09:55 Procalcitonin 0.03 ng/mL (0-0.5) 06/30/22 11:30 Prolactin 22.70 ng/mL (4.8-23.3) 06/30/22 09:55 Prolactin Cancelled 06/30/22 09:55 Urine Color Yellow (Yellow) 06/30/22 10:22 Urine Appearance Clear (CLEAR) 06/30/22 10:22 Urine pH 6 (5-7) 06/30/22 10:22 Ur Specific [place] 1.015 (1.005-1.030) 06/30/22 10:22 Urine Protein Neg (Negative) 06/30/22 10:22 Urine Glucose (UA) Norm (Normal) 06/30/22 10: Urine Ketones Negative (Negative) 06/30/22 10: Urine Blood 2+ (Negative) H 06/30/22 10: Urine Nitrate Negative (Negative) 06/30/22 10: Urine Bilirubin Neg (Negative) 06/30/22 10: Urine Urobilinogen Norm mg/dL (Negative) 06/30/22 10: Ur Leukocyte Esterase Negative (Negative) 06/30/22 10: Urine RBC 5-10 /hpf (0-2) H 06/30/22 10:22 Urine WBC 0-4 /hpf (0-5) H 06/30/22 10:22 Ur Squamous Epith Cells 0-4 /hpf (0-5) H 06/30/22 10: Amorphous Sediment Not Reportable 06/30/22 10: Urine Bacteria Trace /hpf (NONE) 06/30/22 10: Coronavirus 229E (PCR) Not detected (NOT DETECT) 06/30/22 14:16 SARS-CoV-2 (PCR) Not detected (NOT DETECT) 06/30/22 14:16 Vitals Last Vital Signs Temp 97.9 F 07/01/22 08:00 Pulse 80 07/01/22 08:00 Resp 18 07/01/22 08:00 BP 127/89 07/01/22 09:19 Pulse Ox 95 07/01/22 08:00 O2 Del Method 07/01/22 08:00 O2 Flow Rate 3 07/01/22 07:40 Discharge Plan Discharge Patient Disposition: Home Condition: Stable Prescriptions: Continued guaifenesin 400 mg tablet 400 mg PO BID Fish Oil 100-160-1,000 mg capsule 1 cap PO DAILY@12 multivitamin Tablet 1 tab PO QAM diphenhydramine HCl [Benadryl] 25 mg capsule 25 mg PO BEDTIME Ozempic 0.25 mg or 0.5 mg(2 mg/1.5 mL) pen injector See Rx Instructions SUBCUT .COMPLEX Qty: 1.5 0RF Rx Instructions: Start 0.25mg one time a week x 4 weeks, then increase to 0.50mg one time week x 4wks. (ON TUESDAYS) albuterol sulfate 2.5 mg /3 mL (0.083 %) solution for nebulization 2.5 mg inhalation Q6H PRN (Reason: shortness of breath or wheezing) Qty: 90 2RF Eliquis 5 mg tablet 5 mg PO BID Qty: 60 2RF budesonide-formoterol [Symbicort] 160-4.5 mcg/actuation HFA aerosol inhaler 2 puff inhalation BID Qty: 10.2 5RF Spiriva Respimat 2.5 mcg/actuation mist 2 puff inhalation DAILY Qty: 4 5RF gabapentin 800 mg tablet 800 mg PO TID Qty: 90 2RF cyclobenzaprine 10 mg tablet See Rx Instructions .ROUTE .COMPLEX Rx Instructions: 10 mg orally AT 07:00 AND 12:00 AND TAKES 20MG (2 TABS) AT BEDTIME atorvastatin 80 mg tablet 80 mg PO BEDTIME prednisone 20 mg tablet 20 mg PO QAM valsartan 80 mg tablet 80 mg PO BEDTIME tramadol 50 mg tablet See Rx Instructions .ROUTE .COMPLEX Rx Instructions: 50MG PO DAILY AT 07:00,12:00 AND 100MG HS citalopram 20 mg tablet 20 mg PO BEDTIME montelukast 10 mg tablet 10 mg PO QAM albuterol sulfate 90 mcg/actuation HFA aerosol inhaler 1 inh inhalation QID PRN (Reason: Shortness Of Breath) spironolactone 50 mg tablet 50 mg PO BEDTIME potassium chloride 20 mEq tablet extended release 20 meq PO DAILY@12 magnesium oxide 200 mg magnesium Tablet 200 mg PO DAILY@12 sulfamethoxazole-trimethoprim 800-160 mg tablet See Rx Instructions PO DAILY Qty: 5 0RF Rx Instructions: Take 1 tablet daily on Mondays, Wednesdays and Fridays Changed bumetanide 2 mg tablet 2 mg PO BID Qty: 60 0RF metoprolol tartrate 75 mg tablet 50 mg PO BID Qty: 60 1RF Discontinued black cohosh 200 mg capsule 200 mg PO QAM hydroxyzine HCl 25 mg tablet 25 mg PO TID Discharge Orders: Discharge Order (Routine); Ordered 07/01/22 Ordered By: Logan Dorado Referrals: Pal Caballero DO [Primary Care Provider] - 4-7 days Discharge Diet: Cardiac Discharge Activity: Increase activity as tolerated Patient Instructions: Opioid Safety Discharge Attestations Time Spent in Discharge Care*: less than 30 min Quality Metrics Clinical Quality Measures [ No reported AMI, CVA or VTE this stay] Coding Level of Care Code Acute Chg FW DC note Diagnoses CHF (congestive heart failure) I50.33 Heart failure type: diastolic Heart failure chronicity: acute on chronic Chest pain R07.1 Chest pain type: chest pain on breathing Obesity hypoventilation syndrome E66.2 Obstructive sleep apnea G47.33 Severe persistent asthma dependent on systemic steroids J45.50; Z79.52 Essential hypertension I10 Afib I48.11 Atrial fibrillation type: longstanding persistent Chronic anticoagulation Z79.01
--- NOTE | 2022-07-01 10:27 | PC.CHAP ---
Pastoral Care Encounter/Spiritual Assessment Type of Contact [] Declined engraver hand soft metals visit [] Patient/Family/Request visit [] Outpatient visit [] Follow-up visit [] Physician referral [] Code/Alert [x] Routine visit [] Staff referral [] Actively dying [] Patient sleeping [] Family support [] [] Out of room [] Palliative care [] [x] Receiving care in room [] Pre-surgical visit [] Trauma [] Long length of stay [] ICU visit [] Other: Relational/Emotional Strength [x] Patient feels connected with others/family/visitors/staff [] Distress [] Loneliness/isolation [] Abandonment Spirituality of Patient [x] Person of Breanna [] Attends Taoist of their Breanna [x] Believes in Prayer [] Reads Bible or Restoration materials [] There are Spiritual issues to be addressed Balance Staff Inspector Interventions [x] Prayer [] Active listening [] Non-anxious presence [] Spiritual/emotional support [] Crisis/trauma care [] Spiritual counseling [] Bereavement support [] Provided bereavement packet [] Provided Bible/devotional materials [] Provided toy/stuffed animal, coloring book to patient or family member [] Provided Communion [] Anointing/[place] [] Salvation [x] Completed spiritual assessment [] Other: Impact on Illness or Injury [] Angry [] Fearful [] Anxious [] Often cries [] Exhaustion [] Unable to work [] Unable to attend amish [] Unable to walk/stand [] Unable to read [] Unable to drive [] Unable to eat/drink [] Unable to sleep [] Unable to be with family [] Patient intubated [] Other: Summary Time spent with patient 10 min
[2022-07-01 12:00] LABS: Glucose Point of Care 185 mg/dL (70-110)
[2022-07-01] MEDS: insulin lispro 100 unit/1 mL SUBCUT (12:38)
--- NOTE | 2022-07-01 13:12 | PC.NURSE ---
Discharge instructions, new medications, discontinued medications and follow up appointments discussed with patient. Verbalized understanding.
== END 2022-07-01 12:45 | disposition home or self-care (01) ==
LOC: ER 14:14 → MEDSURG 17:49
PROVIDERS: Admitting Provider Hospitalist; Emergency Provider Family Medicine; PCP Family Medicine; Visit Provider Internal Medicine
DX: I50.33 Acute on chronic diastolic (congestive) heart failure (principal); E11.22 Type 2 diabetes mellitus with diabetic chronic kidney disease; I13.0 Hypertensive heart and chronic kidney disease with heart failure and stage 1 through stage 4 chronic kidney disease, or unspecified chronic kidney disease; N18.9 Chronic kidney disease, unspecified; E66.2 Morbid (severe) obesity with alveolar hypoventilation; G47.33 Obstructive sleep apnea (adult) (pediatric); J45.50 Severe persistent asthma, uncomplicated; Z79.52 Long term (current) use of systemic steroids; I48.11 Longstanding persistent atrial fibrillation; Z79.01 Long term (current) use of anticoagulants; Z68.45 Body mass index [BMI] 70 or greater, adult; Z99.81 Dependence on supplemental oxygen; I45.10 Unspecified right bundle-branch block
CPT/HCPCS: 36415; 36416; 36600; 51702; 71045; 71275; 80048; 80051; 80053; 81001; 82330; 82550; 82805; 82962; 83605; 83735; 83880; 84100; 84145; 84146; 84484; 85025; 87635; 93005; 94640; 96361; 96372; 96374; 96375; 96376; 99291; G0378; J1815; J1940; J7512; Q9967

== ENCOUNTER 2022-07-08 07:00 | Outpatient (CLI) | payer MEDICAID, SELFPAY | END 2022-07-08 07:01 | disposition home or self-care (01) | LOC: RT 07:01 | PROVIDERS: PCP Family Medicine; Visit Provider Internal Medicine Pulmonary Disease | DX: R91.1 Solitary pulmonary nodule (principal) | CPT/HCPCS: 94060; 94729; J7611 ==

== ENCOUNTER 2022-07-15 11:14 | Outpatient (CLI) | payer MEDICAID, SELFPAY ==
--- NOTE | 2022-07-15 11:22 | XRR_ITS ---
PROCEDURE INFORMATION: Exam: XR Chest Exam date and time: 07/15/2022 11:26 AM Age: 52 years old Clinical indication: Pain; Left-sided; Prior surgery; Surgery type: Hyster; Additional info: Increased left chest pain TECHNIQUE: Imaging protocol: Radiologic exam of the chest. Views: 2 views. Total images: 2 COMPARISON: CR XR chest 1V portable [id number] 06/30/2022 9:59 AM FINDINGS: Lungs: Streaky opacities seen in the mid and lower lung troy felt to represent subsegmental atelectasis versus interstitial pneumonia. Pleural spaces: Unremarkable. No pleural effusion. No pneumothorax. Heart/Mediastinum: Unremarkable. No cardiomegaly. Bones/joints: Unremarkable. XR/XR chest 2V* [id number] IMPRESSION: Streaky opacities seen in the mid and lower lung troy felt to represent subsegmental atelectasis, chronic lung changes, and or interstitial pneumonia.
== END 2022-07-15 11:15 | disposition home or self-care (01) ==
LOC: RAD 11:17
PROVIDERS: PCP Family Medicine; Visit Provider Internal Medicine Pulmonary Disease
DX: J45.909 Unspecified asthma, uncomplicated (principal)
CPT/HCPCS: 71046

== ENCOUNTER 2022-08-28 14:09 | Emergency (ER) | payer MEDICAID, SELFPAY ==
[2022-08-28] VITALS (7 sets, daily range): BP systolic 145–156; BP diastolic 68–88; PULSE 76–107; RESP 18–24; TEMP 36.4; O2SAT 85–96; BMI 82.7
--- NOTE | 2022-08-28 14:55 | XR_ITS ---
WS: [id number] Portable AP upright chest, 08/28/2022 Clinical Data: SOB x 2 weeks, cough Comparison: PA and lateral chest, 07/15/2022 Findings: No nodules, masses or effusions are seen. The heart is enlarged. The pulmonary vascularity is not increased. No pneumothorax is seen. There is minimal right basilar patchy opacity which could represent pneumonia and/or atelectasis XR/XR chest 1V portable [id number] Impression: 1. Right basilar opacity which could represent atelectasis and/or pneumonia. 2. Cardiomegaly.
--- NOTE | 2022-08-28 15:32 | W.ED.SOB ---
HPI - SOB/Dyspnea General: Chief Complaint: Shortness of Breath/Dyspnea Stated Complaint: SOB Time Seen by Provider: 08/28/22 15:02 History of Present Illness: HPI Narrative: 52-year-old female presents emergency department along with her for shortness of breath that has been progressive for 1 week. She reports she has asthma as well as congestive heart failure. She has had suspected low-grade fever but denies any other flulike symptoms such as URI symptoms, nausea, vomiting, diarrhea. She uses home oxygen 2-1/2 to 3 L at all times. She has been using 4 L at home this week to keep her oxygen at 90%. Patient reports she increased her Bumex from 2 mg once a day to Bumex 2 mg 3 times a day in order to try and urinate off any extra fluid. She says she sometimes will have fluid collecting in her lower extremities but more often than not it distributes pretty evenly throughout her body as she is not routinely mobile. The patient has morbid obesity with a BMI of 83 and alveolar hypoventilation associated with this. Patient is chronically steroid-dependent taking 20 mg of prednisone per day. She has been using her albuterol every 4 hours without any significant relief. She uses a CPAP at night with a and positive airway pressure of 13. On arrival, the patient does not have her oxygen on and she is bluish around the lips and fingertips. I applied a pulse oximeter and she is 83% with tachypnea. I put her on 3 L and she quickly improved to 96%. Associated symptoms: Reports fever(s) (Suspected low-grade) and orthopnea; Deny abdominal pain, chest pain, nausea, syncope or vomiting Review of Systems General: Reports: 10 or more systems reviewed and unremarkable except in HPI and below Const: Reports: fever(s) (Suspected low-grade), fatigue and malaise; Denies: chills or night sweats Card: Reports: edema, dyspnea on exertion and orthopnea; Denies: chest pain or syncope Resp: Denies: productive cough or non-productive cough GI: Denies: abdominal pain, nausea, vomiting or diarrhea : Denies: flank pain or dysuria Skin/Breast: Denies: rash or sores Neuro: Reports: headache(s) and difficulty walking; Denies: weakness in extremities PFS ED PFSH: Medical History Atrial fibrillation Atypical chest pain Chest pain Chest wall pain, chronic CHF (congestive heart failure) Chronic anticoagulation CKD (chronic kidney disease) Depression Diabetes mellitus type 2, uncontrolled, with complications Diabetic retinopathy Essential hypertension Hemangioma Left shoulder Infected sebaceous cyst of skin Mixed dyslipidemia Morbid obesity with BMI of 70 and over, adult 06/30/2022 96.5 Obesity hypoventilation syndrome Obstructive sleep apnea Right bundle branch block Right shoulder pain Severe persistent asthma dependent on systemic steroids Solitary pulmonary nodule Steroid dependence Surgical History History of hysterectomy S/P cholecystectomy Family History Mother Myocardial infarct Stroke Hypertension Father Myocardial infarct Social History Smoking and tobacco status: never smoked Alcohol intake: never Female Reproductive History: Spontaneous abortions: No Physical Exam Const: OTHER: Patient is in moderate respiratory distress, morbidly obese, sitting straight up and pursed lip breathing with a bluish tinge to her lips HENMT: COMMON NORMALS: normocephalic, atraumatic and external ears normal HEAD & SCALP: normocephalic and atraumatic EXTERNAL EAR: Yes external ears normal MOUTH: no muffled voice Eye: COMMON NORMALS: EOMs intact bilaterally, conjunctivae normal and no scleral icterus CONJUNCTIVA: Yes conjunctivae normal Neck/C-Spine: GENERAL: Yes normal visual inspection and Yes trachea midline Resp: EFFORT & INSPECTION: No able to speak in complete sentences, Yes symmetric chest movement, Yes abnormal respiratory pattern, Yes tachypneic, Yes respiratory distress, Yes pursed lip breathing, Yes labored, Yes uses accessory muscles, Yes audible wheezes and Yes tripod positioning Cardio: RATE: tachycardic GI: COMMON NORMALS: Soft to palpation PALPATION: Yes Soft to palpation Extremity: COMMON NORMALS: normal to inspection Neuro: COMMON NORMALS: moves all extremities, no focal motor deficits and no sensory deficits noted SPEECH: speech normal Psych: COMMON NORMALS: mental status grossly normal, Normal thought process present, cooperative, normal affect and speech normal SPEECH: Yes normal speech THOUGHT PROCESS: Normal thought process present Skin: COMMON NORMALS: turgor normal and no jaundice GENERAL SKIN EXAM: turgor normal, dry skin, no jaundice and no purpura Course Vital Signs: Vital signs: Vital Signs Temperature 97.6 F 08/28/22 14:16 Pulse Rate 98 08/28/22 15:51 Respiratory Rate 20 H 08/28/22 15:51 Blood Pressure 156/88 08/28/22 15:35 Pulse Oximetry 96 08/28/22 15:51 Oxygen Delivery Me thod 08/28/22 15:51 Oxygen Flow Rate 3 08/28/22 15:51 MDM - SOB/Dyspnea Medical Decision Making Differential diagnosis includes obstructive lung disease, CHF, pulmonary hypertension, pulmonary embolism, pneumonia, pneumonitis, obesity hypoventilation syndrome, other. Chest x-ray shows a right basilar opacity as well as enlarged heart. Patient has no fever, no elevation WBC, no sputum production--feel this is atalectasis or edema rather than infectious infiltrate. Probably atalectasis given her habitus. Patient finished two duonebs, IV steroids, 4gm Mg over 2 hours. She feels much better. I offered to do admission but patient states she's ready to try going home. Plan to put on Symbicort, steroid burst, bumex 6mg daily for 3 days, cpap day and night. F/u pcp next week. Given return precautions. Lab Data 08/28/22 15:40 08/28/22 15:40 Labs/Radiology: Radiology Impressions Chest X-Ray 08/28/22 14:55 Impression: 1. Right basilar opacity which could represent atelectasis and/or pneumonia. 2. Cardiomegaly. Laboratory Results WBC 8.1 10^3/uL (4.0-10.0) 08/28/22 15:40 RBC 4.09 10^6/uL (4.1-5.3) L 08/28/22 15:40 Hgb 12.1 g/dL (11.5-15.3) 08/28/22 15:40 Hct 38.7 % (37.0-47.0) 08/28/22 15:40 MCV 94.6 fl (81-99) 08/28/22 15:40 MCH 29.6 pg (28.0-34.0) 08/28/22 15:40 MCHC 31.3 g/dL (30.0-36.0) 08/28/22 15:40 RDW 14.1 % (12.1-15.1) 08/28/22 15:40 Plt Count 187 10^3/cmm (130-400) 08/28/22 15:40 MPV 10.0 fL (7.4-10.4) 08/28/22 15:40 Neut % (Auto) 68.6 % 08/28/22 15:40 Lymph % (Auto) 21.7 % 08/28/22 15:40 [place] % (Auto) 6.1 % 08/28/22 15:40 Eos % (Auto) 2.5 % 08/28/22 15:40 Baso % (Auto) 0.4 % 08/28/22 15:40 Neut # (Auto) 5.55 10^3/uL (1.8-7.7) 08/28/22 15:40 Lymph # (Auto) 1.8 10^3/uL (0.8-4.8) 08/28/22 15:40 [place] # (Auto) 0.5 10^3/uL (0.2-0.9) 08/28/22 15:40 Eos # (Auto) 0.2 10^3/uL (0.0-0.8) 08/28/22 15:40 Baso # (Auto) 0.0 10^3/uL (0.0-0.1) 08/28/22 15:40 Nucleated RBC % (auto) 0 % 08/28/22 15:40 Nucleated RBCs # 0.0 /100WBC 08/28/22 15:40 Specimen Type Arterial 08/28/22 15:54 Sample Site Radial, right 08/28/22 15:54 ABG pH 7.42 (7.35-7.45) 08/28/22 15:54 ABG pCO2 44.3 mmHg (35-45) 08/28/22 15:54 ABG pO2 83.5 mmHg (80.0-100.0) 08/28/22 15:54 ABG HCO3 28.8 mmol/L (22-26) H 08/28/22 15:54 ABG Base Excess 3.7 mmol/L (-2.0-2.0) H 08/28/22 15:54 Florin Test Pos 08/28/22 15:54 Hematocrit 37.6 % (37-47) 08/28/22 15:54 O2 Delivery Device Nc 08/28/22 15:54 O2 Liters/Min 3.0 % 08/28/22 15:54 FiO2 32.0 % 08/28/22 15:54 Software Implementation Project Manager ID Amh 08/28/22 15:54 Sodium 142 mmol/L (136-145) 08/28/22 15:40 Potassium 4.0 mmol/L (3.5-5.1) 08/28/22 15:40 Chloride 103 mmol/L (98-107) 08/28/22 15:40 Carbon Dioxide 29 mmol/L (22-29) 08/28/22 15:40 Anion Gap 14.0 (5-19) 08/28/22 15:40 BUN 12 mg/dL (6-20) 08/28/22 15:40 Creatinine 0.5 mg/dL (0.5-0.9) 08/28/22 15:40 GFR Calculation 129.1 mL/min (90-130) 08/28/22 15:40 Glucose 147 mg/dL (65-115) H 08/28/22 15:40 Calculated Osmolality 296 mOsm/kg (285-295) H 08/28/22 15:40 Calcium 9.4 mg/dL (8.5-10.5) 08/28/22 15:40 Total Bilirubin 0.5 mg/dL (0.15-1.2) 08/28/22 15:40 AST 12 U/L (0-32) 08/28/22 15:40 ALT 19 U/L (0-33) 08/28/22 15:40 Alkaline Phosphatase 123 U/L (35-105) H 08/28/22 15:40 Troponin T Baseline 12 ng/L (0-10) H 08/28/22 15:40 NT-Pro-B Natriuret Pep 40 pg/mL (0-125) 08/28/22 15:40 Total Protein 6.9 g/dL (6.6-8.7) 08/28/22 15:40 Albumin 4.1 g/dL (3.5-5.2) 08/28/22 15:40 Globulin 2.8 g/dL (1.3-4.6) 08/28/22 15:40 Influenza Type A Ag negative (Negative) 08/28/22 15:40 Influenza Type B Ag negative (Negative) 08/28/22 15:40 SARS-CoV-2 Ag (Rapid) negative (Negative) 08/28/22 15:40 Discharge Plan Discharge Patient Disposition: Home Clinical Impression: Acute and chronic respiratory failure with hypoxia, On home oxygen therapy, Steroid dependence, CHF (congestive heart failure), Asthma with exacerbation, Class 1 obesity with alveolar hypoventilation in adult Condition: Stable Prescriptions: Continued Symbicort 160-4.5 mcg/actuation HFA aerosol inhaler 2 puff inhalation BID Qty: 10.2 5RF No Action guaifenesin 400 mg tablet 400 mg PO BID celecoxib 200 mg capsule 200 mg PO BID PRN (Reason: pain) Qty: 60 1RF Fish Oil 100-160-1,000 mg capsule 1 cap PO DAILY@12 multivitamin Tablet 1 tab PO QAM diphenhydramine HCl [Benadryl] 25 mg capsule 25 mg PO BEDTIME gabapentin 800 mg tablet 800 mg PO TID Qty: 90 5RF albuterol sulfate 2.5 mg /3 mL (0.083 %) solution for nebulization 2.5 mg inhalation Q6H PRN (Reason: shortness of breath or wheezing) Qty: 90 2RF Ozempic 0.25 mg or 0.5 mg(2 mg/1.5 mL) pen injector See Rx Instructions .ROUTE .COMPLEX Qty: 1.5 0RF Dose Instruction: inject 0.25mg ONCE a week FOR FOUR weeks THEN increase TO 0.5mg every week FOR FOUR weeks Rx Instructions: inject 0.25mg ONCE a week FOR FOUR weeks THEN increase TO 0.5mg every week FOR FOUR weeks on wednesday montelukast 10 mg tablet 10 mg PO QAM Qty: 90 2RF sulfamethoxazole-trimethoprim 800-160 mg tablet See Rx Instructions PO DAILY Qty: 5 0RF Rx Instructions: Take 1 tablet daily on Mondays, Wednesdays and Fridays tramadol 50 mg tablet See Rx Instructions .ROUTE .COMPLEX Qty: 120 0RF Rx Instructions: 50MG PO DAILY AT 07:00,12:00 AND 100MG HS prednisone 20 mg tablet 20 mg PO QAM Qty: 30 0RF Aspir-81 81 mg Tablet,Delayed Release (Dr/Ec) 81 mg PO DAILY PRN (Reason: Chest Pain) cyclobenzaprine 10 mg tablet 10 mg PO Q6H PRN (Reason: Muscle Spasm) atorvastatin 80 mg tablet 80 mg PO BEDTIME bumetanide 2 mg tablet 2 mg PO QAM citalopram 20 mg tablet 20 mg PO DAILY metoprolol tartrate 50 mg tablet 50 mg PO BID spironolactone 50 mg tablet 50 mg PO QAM Spiriva Respimat 2.5 mcg/actuation mist 2 puff inhalation QAM Eliquis 5 mg tablet 5 mg PO BID valsartan 80 mg tablet 80 mg PO BEDTIME albuterol sulfate 90 mcg/actuation HFA aerosol inhaler 1 inh inhalation QID PRN (Reason: Shortness Of Breath) potassium chloride 20 mEq tablet extended release 20 meq PO DAILY@12 magnesium oxide 200 mg magnesium Tablet 200 mg PO DAILY@12 Discharge Orders: Discharge ED (Routine); Ordered 08/28/22 Ordered By: Florian Morris Referrals: Pal Caballero DO [Primary Care Provider] - 4-7 days Discharge Diet: Diabetic Discharge Activity: Increase activity as tolerated Patient Instructions: Heart Failure (ED), Asthma (ED), Shortness of Breath (ED), Opioid Safety, Pain Management Activity Restrictions/Additional Instructions: 1. Continue Bumex 2mg three times per day for another 3 days. 2. Increase prednisone to 60mg daily for 5 days, then back to 20mg daily. 3. Use CPAP all day and night. 4. Start using Symbicort as directed Read handouts--follow-up with family doctor next week. Return to ER if worsening. Coding Level of Care Code ED Lead Assistant Manager for Alexandra Fwminh Exam Comprehensive
[2022-08-28] MEDS: ipratropium-albuterol 3 mL Neb 6 ML INHALATION (15:46)
[2022-08-28] MEDS: magnesium sulfate premix 4 GM/100 ML PREMIX IV (15:50)
[2022-08-28 16:06] LABS: Basophils % 0.4 %; Eosinophils # 0.2 10^3/uL (0.0-0.8); Eosinophils % 2.5 %; Hematocrit 38.7 % (37.0-47.0); Hemoglobin 12.1 g/dL (11.5-15.3); Lymphocytes # 1.8 10^3/uL (0.8-4.8); Lymphocytes % 21.7 %; Mean Corpuscular HGB Conc 31.3 g/dL (30.0-36.0); Mean Corpuscular Hemoglobin 29.6 pg (28.0-34.0); Mean Corpuscular Volume 94.6 fl (81-99); Monocytes # 0.5 10^3/uL (0.2-0.9); Monocytes % 6.1 %; Neutrophils # 5.55 10^3/uL (1.8-7.7); Neutrophils % 68.6 %; Nucleated Red Blood Cells % 0 %; Platelet Count 187 10^3/cmm (130-400); Red Blood Count 4.09 10^6/uL (4.1-5.3); Red Cell Distribution Width 14.1 % (12.1-15.1); White Blood Count 8.1 10^3/uL (4.0-10.0)
[2022-08-28 16:06] LABS: ABG PCO2 44.3 mmHg (35-45); ABG PH Result 7.42 (7.35-7.45); Arterial Blood Gas Hematocrit 37.6 % (37-47); Base Excess ABG 3.7 mmol/L (-2.0-2.0); Blood Gas Allen Test Pos; Blood Gas Operator Identificat AMH; Blood Gas Sample Site Radial, right; Blood Gas Sample Type Arterial; HCO3 ABG 28.8 mmol/L (22-26); Oxygen Device NC; PO2 ABG 83.5 mmHg (80.0-100.0)
--- NOTE | 2022-08-28 16:15 | ECG_ITS ---
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 Measurements Intervals [place] Rate: 98 P: 60 MD: 158 QRS: 48 QRSD: 138 T: 31 QT: 375 QTc: 480 Interpretive Statements SINUS RHYTHM RIGHT BUNDLE BRANCH BLOCK [120+ ms QRS DURATION, UPRIGHT V1, 40+ ms S IN I/aVL/V4/V5/V6] Compared to ECG 06/30/2022 11:59:05 No significant changes Electronically Signed On 08-28-2022 23:51:28 MACHINE FEATHEREDGER AND REDUCER by Rubens Gomez M.D. [id number]
[2022-08-28 16:39] LABS: Influenza A by IFA negative (Negative); Influenza B by IFA negative (Negative); SARS Covid-2 Antigen negative (Negative)
[2022-08-28 16:44] LABS: Troponin(5th) Baseline 12 ng/L (0-10)
[2022-08-28 16:53] LABS: Alanine Aminotransferase 19 U/L (0-33); Albumin Level 4.1 g/dL (3.5-5.2); Alkaline Phosphatase 123 U/L (35-105); Aspartate Amino Transferase 12 U/L (0-32); Blood Urea Nitrogen 12 mg/dL (6-20); Calcium 9.4 mg/dL (8.5-10.5); Carbon Dioxide 29 mmol/L (22-29); Chloride 103 mmol/L (98-107); Globulin 2.8 g/dL (1.3-4.6); Glomerular Filtration Rate 129.1 mL/min (90-130); Glucose 147 mg/dL (65-115); NT Pro B Type Natriuretic Pept 40 pg/mL (0-125); Osmolality Calculated 296 mOsm/kg (285-295); Sodium 142 mmol/L (136-145); Total Bilirubin 0.5 mg/dL (0.15-1.2); Total Protein 6.9 g/dL (6.6-8.7)
== END 2022-08-28 18:13 | disposition home or self-care (01) ==
PROVIDERS: Emergency Provider Emergency Medicine; PCP Family Medicine
DX: J45.901 Unspecified asthma with (acute) exacerbation (principal); J96.21 Acute and chronic respiratory failure with hypoxia; Z99.81 Dependence on supplemental oxygen; Z79.52 Long term (current) use of systemic steroids; Z20.822 Contact with and (suspected) exposure to COVID-19; I13.0 Hypertensive heart and chronic kidney disease with heart failure and stage 1 through stage 4 chronic kidney disease, or unspecified chronic kidney disease; E11.22 Type 2 diabetes mellitus with diabetic chronic kidney disease; N18.9 Chronic kidney disease, unspecified; I50.9 Heart failure, unspecified; E78.2 Mixed hyperlipidemia; E66.2 Morbid (severe) obesity with alveolar hypoventilation
CPT/HCPCS: 36600; 71045; 80053; 82803; 83880; 84484; 85025; 87426; 87804; 93005; 94640; 96374; 99285; J2930; J3475

== ENCOUNTER → 2022-09-18 10:17 | Outpatient (BNVA) | payer MEDICAID, SELFPAY | PROVIDERS: PCP Family Medicine; Visit Provider Internal Medicine Cardiovascular Disease | DX: I13.0 Hypertensive heart and chronic kidney disease with heart failure and stage 1 through stage 4 chronic kidney disease, or unspecified chronic kidney disease (principal); E11.22 Type 2 diabetes mellitus with diabetic chronic kidney disease; E11.65 Type 2 diabetes mellitus with hyperglycemia; N18.9 Chronic kidney disease, unspecified; I50.33 Acute on chronic diastolic (congestive) heart failure; Z79.84 Long term (current) use of oral hypoglycemic drugs; I48.11 Longstanding persistent atrial fibrillation; Z79.01 Long term (current) use of anticoagulants; Z79.82 Long term (current) use of aspirin | CPT/HCPCS: 99214; Q3014 ==

== ENCOUNTER → 2022-10-16 10:26 | Outpatient (BNVA) | payer MEDICAID, SELFPAY | PROVIDERS: PCP Family Medicine; Visit Provider Internal Medicine Pulmonary Disease | DX: G47.33 Obstructive sleep apnea (adult) (pediatric) (principal); Z99.81 Dependence on supplemental oxygen; E66.01 Morbid (severe) obesity due to excess calories; Z68.45 Body mass index [BMI] 70 or greater, adult; J45.50 Severe persistent asthma, uncomplicated; J82.83 Eosinophilic asthma; R09.02 Hypoxemia; I48.91 Unspecified atrial fibrillation; Z79.01 Long term (current) use of anticoagulants | CPT/HCPCS: 99214 ==

== ENCOUNTER → 2022-12-02 08:57 | Outpatient (BNVA) | payer MEDICAID, SELFPAY | PROVIDERS: PCP Family Medicine; Visit Provider Family Medicine | DX: E66.2 Morbid (severe) obesity with alveolar hypoventilation (principal); I50.9 Heart failure, unspecified; J44.1 Chronic obstructive pulmonary disease with (acute) exacerbation; Z79.52 Long term (current) use of systemic steroids; Z99.81 Dependence on supplemental oxygen; I50.42 Chronic combined systolic (congestive) and diastolic (congestive) heart failure; J45.50 Severe persistent asthma, uncomplicated; I10 Essential (primary) hypertension | CPT/HCPCS: 80053; 83036; 83880; 84443; 85025 ==

== ENCOUNTER 2022-12-03 22:27 | Emergency (ER) | payer MEDICAID, SELFPAY ==
[2022-12-03 22:32] VITALS: BP 200/104; PULSE 112; RESP 18; TEMP 37.3; O2SAT 95; BMI 106.4
--- NOTE | 2022-12-03 23:08 | ED_ITS ---
HPI - Chest Pain General: Chief Complaint: Chest Pain Stated Complaint: SOB/CP Time Seen by Provider: 12/03/22 22:28 Source: patient and EMS Mode of arrival: EMS Limitations: no limitations History of Present Illness: 52-year-old female who has a history of morbid obesity ED with asthma is on oxygen at home states over last 2 to 3 days she has been having some sharp chest pains with shortness of breath denies any cough she states the pain is currently a 2 out of 10 she denies any worsening proving f actors. Denies any vomiting. Associated symptoms: Reports dyspnea; Deny abdominal pain, fever(s), nausea or vomiting Review of Systems Const: Denies: fever(s), chills, body aches or change in appetite Eyes: Denies: blurry vision or eye discomfort ENMT: Denies: throat pain or dental pain Card: Reports: chest pain Resp: Reports: dyspnea GI: Denies: abdominal pain, nausea, vomiting or diarrhea : Denies: dysuria Musc: Denies: neck pain or back pain Skin/Breast: Denies: rash Neuro: Denies: headache(s) Psych: Denies: depression Charles/Lymph: Denies: easy bruising All/Imm: Denies: urticaria PFSH ED PFSH: Medical History Atrial fibrillation Atypical chest pain Chest pain Chest wall pain, chronic CHF (congestive heart failure) Chronic anticoagulation CKD (chronic kidney disease) Depression Diabetes mellitus type 2, uncontrolled, with complications Diabetic retinopathy Essential hypertension Hemangioma Left shoulder Infected sebaceous cyst of skin Mixed dyslipidemia Morbid obesity with BMI of 70 and over, adult 06/30/2022 96.5 Obesity hypoventilation syndrome Obstructive sleep apnea Right bundle branch block Right shoulder pain Severe persistent asthma dependent on systemic steroids Solitary pulmonary nodule Steroid dependence Surgical History History of hysterectomy S/P cholecystectomy Family History Mother Myocardial infarct Stroke Hypertension Father Myocardial infarct Social History Smoking and tobacco status: never smoked Alcohol intake: never Female Reproductive History: Spontaneous abortions: No Physical Exam Const: COMMON NORMALS: no acute distress, patient oriented x3 and healthy appearing NUTRITIONAL APPEARANCE: obese HENMT: COMMON NORMALS: normocephalic and atraumatic HEAD & SCALP: normocephalic and atraumatic Eye: COMMON NORMALS: Equal, round and reactive pupils present and EOMs intact bilaterally PUPIL: Yes Equal, round and reactive pupils present Neck/C-Spine: COMMON NORMALS: full ROM and supple Chest: COMMONS NORMALS: normal inspection of the chest and normal palpation of entire chest wall Resp: COMMON NORMALS: normal respiratory effort, No retractions, No use of accessory muscles and clear to auscultation bilaterally AUSCULTATION: clear to auscultation bilaterally Cardio: COMMON NORMALS: regular rate, regular rhythm and No murmurs present (Cardio) RATE: regular rate RHYTHM: regular rhythm GI: COMMON NORMALS: Normal to inspection, nondistended, normoactive bowel sounds present, Soft to palpation, non-tender and no masses PALPATION: Yes Soft to palpation Extremity: COMMON NORMALS: normal to inspection and full ROM Neuro: COMMON NORMALS: patient oriented x3, moves all extremities and no focal motor deficits Psych: COMMON NORMALS: mental status grossly normal, Normal thought process present and cooperative THOUGHT PROCESS: Normal thought process present Skin: COMMON NORMALS: no rashes or lesions noted and no wounds GENERAL SKIN EXAM: no rashes or lesions noted Course Vital Signs: Vital signs: Vital Signs Temperature 99.2 F 12/03/22 22:32 Pulse Rate 107 H 12/04/22 00:30 Respiratory Rate 17 12/04/22 00:30 Blood Pressure 133/87 12/03/22 23:46 Pulse Oximetry 89 L 12/04/22 00:30 Oxygen Delivery Me thod 12/04/22 00:30 Oxygen Flow Rate 5 12/04/22 00:30 MDM - Chest Pain Medical Decision Making Patient here with chest pain going on for 3 to 4 days along with some dyspnea is likely related to her weight. Her troponin here is normal EKG is normal pain has been for days I do not believe she needs a 2-hour troponin she is currently on antibiotics for possible pneumonia she is to finish that out she is in no severe respiratory distress she is at her baseline here on her home oxygen she is stable for discharge she is to follow-up with her PCP and return if worsening. Lab Data 12/03/22 23:49 12/03/22 23:49 Radiology Impressions Chest X-Ray 12/03/22 23:57 IMPRESSION: 1. Hazy areas of bilateral mid to lower lung atelectasis, scarring, edema, or pneumonitis. These findings are progressed on the right and similar on the left. 2. No pneumothorax or other change has occurred. 3. Large heart. Laboratory Results WBC 9.2 10^3/uL (4.0-10.0) 12/03/22 23:49 RBC 4.18 10^6/uL (4.1-5.3) 12/03/22 23:49 Hgb 12.1 g/dL (11.5-15.3) 12/03/22 23:49 Hct 37.9 % (37.0-47.0) 12/03/22 23:49 MCV 90.7 fl (81-99) 12/03/22 23:49 MCH 28.9 pg (28.0-34.0) 12/03/22 23:49 MCHC 31.9 g/dL (30.0-36.0) 12/03/22 23:49 RDW 13.9 % (12.1-15.1) 12/03/22 23:49 Plt Count 189 10^3/cmm (130-400) 12/03/22 23:49 MPV 10.2 fL (7.4-10.4) 12/03/22 23:49 Neut % (Auto) 89.1 % 12/03/22 23:49 Lymph % (Auto) 6.7 % 12/03/22 23:49 [place] % (Auto) 2.6 % 12/03/22 23:49 Eos % (Auto) 0.2 % 12/03/22 23:49 Baso % (Auto) 0.2 % 12/03/22 23:49 Neut # (Auto) 8.20 10^3/uL (1.8-7.7) H 12/03/22 23:49 Lymph # (Auto) 0.6 10^3/uL (0.8-4.8) L 12/03/22 23:49 [place] # (Auto) 0.2 10^3/uL (0.2-0.9) 12/03/22 23:49 Eos # (Auto) 0.0 10^3/uL (0.0-0.8) 12/03/22 23:49 Baso # (Auto) 0.0 10^3/uL (0.0-0.1) 12/03/22 23:49 Nucleated RBC % (auto) 0 % 12/03/22 23:49 Nucleated RBCs # 0.0 /100WBC 12/03/22 23:49 PT 13.50 SECONDS (12.1-14.9) 12/03/22 23:49 INR 1.00 (0.8-1.2) 12/03/22 23:49 Sodium 141 mmol/L (136-145) 12/03/22 23:49 Potassium 4.4 mmol/L (3.5-5.1) 12/03/22 23:49 Chloride 103 mmol/L (98-107) 12/03/22 23:49 Carbon Dioxide 25 mmol/L (22-29) 12/03/22 23:49 Anion Gap 17.4 (5-19) 12/03/22 23:49 BUN 11 mg/dL (6-20) 12/03/22 23:49 Creatinine 0.6 mg/dL (0.5-0.9) 12/03/22 23:49 GFR Calculation 104.6 mL/min (90-130) 12/03/22 23:49 Calcium 9.5 mg/dL (8.5-10.5) 12/03/22 23:49 Total Bilirubin 0.5 mg/dL (0.15-1.2) 12/03/22 23:49 AST 16 U/L (0-32) 12/03/22 23:49 ALT 30 U/L (0-33) 12/03/22 23:49 Alkaline Phosphatase 126 U/L (35-105) H 12/03/22 23:49 Troponin T Baseline 10 ng/L (0-10) 12/03/22 23:49 Total Protein 6.7 g/dL (6.6-8.7) 12/03/22 23:49 Albumin 4.0 g/dL (3.5-5.2) 12/03/22 23:49 Globulin 2.7 g/dL (1.3-4.6) 12/03/22 23:49 EKG Data EKG 1: I personally reviewed and interpreted this EKG as follows: EKG interpretation date: 12/03/22 EKG interpretation time: 23:14 Interpretation: sinus tach hr [address] or t wave abnormalities qrs 131 qtc 425 Discharge Plan Discharge Patient Disposition: Home Clinical Impression: Chest pain Condition: Stable Prescriptions: No Action guaifenesin 400 mg tablet 400 mg PO BID celecoxib 200 mg capsule 200 mg PO BID PRN (Reason: pain) Qty: 60 5RF valsartan 80 mg tablet 80 mg PO BEDTIME Qty: 90 1RF spironolactone 50 mg tablet 50 mg PO QAM Qty: 90 1RF potassium chloride 20 mEq tablet extended release 20 meq PO DAILY@12 Qty: 90 1RF Eliquis 5 mg tablet 5 mg PO BID Qty: 90 3RF Fish Oil 100-160-1,000 mg capsule 1 cap PO DAILY@12 multivitamin Tablet 1 tab PO QAM diphenhydramine HCl [Benadryl] 25 mg capsule 25 mg PO BEDTIME gabapentin 800 mg tablet 800 mg PO TID Qty: 90 5RF doxycycline hyclate 100 mg tablet 100 mg PO BID 10 Days Qty: 20 0RF montelukast 10 mg tablet 10 mg PO QAM Qty: 90 2RF bumetanide 2 mg tablet See Rx Instructions .ROUTE .COMPLEX Qty: 60 0RF Dose Instruction: Take 1 tablet by mouth once daily Rx Instructions: Take 1 tablet by mouth once daily citalopram 20 mg tablet See Rx Instructions .ROUTE .COMPLEX Qty: 30 0RF Dose Instruction: Take 1 tablet by mouth once daily Rx Instructions: Take 1 tablet by mouth once daily prednisone 20 mg tablet 20 mg PO QAM Qty: 30 0RF sulfamethoxazole-trimethoprim 800-160 mg tablet See Rx Instructions .ROUTE .COMPLEX Qty: 36 1RF Dose Instruction: TAKE 1 TABLET BY MOUTH ONCE DAILY ON MONDAYS, WEDNESDAYS AND FRIDAYS DIRECTED Rx Instructions: TAKE 1 TABLET BY MOUTH ONCE DAILY ON MONDAYS, WEDNESDAYS AND FRIDAYS DIRECTED tramadol 50 mg tablet See Rx Instructions .ROUTE .COMPLEX Qty: 120 0RF Rx Instructions: 50MG PO DAILY AT 07:00,12:00 AND 100MG HS atorvastatin 80 mg tablet See Rx Instructions .ROUTE .COMPLEX Qty: 90 3RF Dose Instruction: Take 1 tablet by mouth once daily Rx Instructions: Take 1 tablet by mouth once daily cyclobenzaprine 10 mg tablet See Rx Instructions .ROUTE .COMPLEX Qty: 120 0RF Dose Instruction: TAKE 1 TABLET BY MOUTH EVERY 6 HOURS NEEDED FOR MUSCLE SPASM Rx Instructions: TAKE 1 TABLET BY MOUTH EVERY 6 HOURS NEEDED FOR MUSCLE SPASM albuterol sulfate [Ventolin HFA] 90 mcg/actuation HFA aerosol inhaler 2 puff inhalation Q6H PRN (Reason: shortness of breath or wheezing) Qty: 6.7 3RF Aspir-81 81 mg Tablet,Delayed Release (Dr/Ec) 81 mg PO DAILY PRN (Reason: Chest Pain) metoprolol tartrate 50 mg tablet 50 mg PO BID Spiriva Respimat 2.5 mcg/actuation mist 2 puff inhalation QAM Symbicort 160-4.5 mcg/actuation HFA aerosol inhaler 2 puff inhalation BID Qty: 10.2 5RF magnesium oxide 200 mg magnesium Tablet 200 mg PO DAILY@12 Discharge Orders: Discharge ED (Routine); Ordered 12/04/22 Ordered By: Merlyn Street Referrals: Pal Caballero, DO [Primary Care Provider] - Discharge Diet: Advance as tolerated Discharge Activity: Resume usual activity Patient Instructions: Chest Pain (ED) Coding Level of Care Code ED Unified Communications Architect for Alexandra Mojica
--- NOTE | 2022-12-03 23:14 | ECG_ITS ---
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 Measurements Intervals [place] Rate: 107 P: 75 MO: 156 QRS: 80 QRSD: 131 T: 66 QT: 362 QTc: 484 Interpretive Statements SINUS TACHYCARDIA RIGHT BUNDLE BRANCH BLOCK [120+ ms QRS DURATION, UPRIGHT V1, 40+ ms S IN I/aVL/V4/V5/V6] Compared to ECG 08/28/2022 16:15:27 Sinus rhythm no longer present Electronically Signed On 12-04-2022 22:58:55 CDT by Jenna Raines M.D. [id number]
[2022-12-03 23:20] VITALS: BP 182/87; PULSE 107; RESP 18; O2SAT 93
[2022-12-03 23:36] VITALS: RESP 18
[2022-12-03] MEDS: morphine 4 mg/mL SDV 1 mL IVP (23:36)
[2022-12-03] MEDS: ondansetron 2 mg/ML SDV 2 mL 4 MG IVP (23:39)
[2022-12-03 23:46] VITALS: BP 133/87
--- NOTE | 2022-12-03 23:57 | XRR_ITS ---
PROCEDURE INFORMATION: Exam: XR Chest Exam date and time: 12/03/2022 11:59 PM Age: 52 years old Clinical indication: Shortness of breath and other: Asthma; Additional info: Cp TECHNIQUE: Imaging protocol: Radiologic exam of the chest. Views: 1 view. COMPARISON: CR (CHEST, ) 12/03/2022 11:40 PM FINDINGS: Lungs: Moderate COPD. Hazy areas of bilateral mid to lower lung atelectasis, pneumonitis, or scarring again seen. Progressed on the right and similar on the left. Pleural spaces: Unremarkable. No pleural effusion. No pneumothorax. Heart/Mediastinum: The heart is large. Bones/joints: Unremarkable. Other findings: Compared to 06/30/2022, no other significant change has occurred. XR/XR chest 1V portable [id number] IMPRESSION: 1. Hazy areas of bilateral mid to lower lung atelectasis, scarring, edema, or pneumonitis. These findings are progressed on the right and similar on the left. 2. No pneumothorax or other change has occurred. 3. Large heart.
[2022-12-04 00:01] LABS: Basophils % 0.2 %; Eosinophils % 0.2 %; Hematocrit 37.9 % (37.0-47.0); Hemoglobin 12.1 g/dL (11.5-15.3); Lymphocytes # 0.6 10^3/uL (0.8-4.8); Lymphocytes % 6.7 %; Mean Corpuscular HGB Conc 31.9 g/dL (30.0-36.0); Mean Corpuscular Hemoglobin 28.9 pg (28.0-34.0); Mean Corpuscular Volume 90.7 fl (81-99); Mean Platelet Volume 10.2 fL (7.4-10.4); Monocytes # 0.2 10^3/uL (0.2-0.9); Monocytes % 2.6 %; Neutrophils % 89.1 %; Nucleated Red Blood Cells % 0 %; Platelet Count 189 10^3/cmm (130-400); Red Blood Count 4.18 10^6/uL (4.1-5.3); Red Cell Distribution Width 13.9 % (12.1-15.1); White Blood Count 9.2 10^3/uL (4.0-10.0)
[2022-12-04] MEDS: albuterol 2.5 mg/3 mL Neb INHALATION (00:17)
[2022-12-04 00:19] LABS: Troponin(5th) Baseline 10 ng/L (0-10)
[2022-12-04 00:20] VITALS: PULSE 110; RESP 17; O2SAT 92
[2022-12-04 00:21] LABS: Alanine Aminotransferase 30 U/L (0-33); Alkaline Phosphatase 126 U/L (35-105); Chloride 103 mmol/L (98-107); Potassium 4.4 mmol/L (3.5-5.1); Sodium 141 mmol/L (136-145)
[2022-12-04 00:23] VITALS: PULSE 115; RESP 18; O2SAT 93
[2022-12-04 00:30] VITALS: PULSE 107; RESP 17; O2SAT 89
[2022-12-04 00:36] LABS: Anion Gap 17.4 (5-19); Aspartate Amino Transferase 16 U/L (0-32); Blood Urea Nitrogen 11 mg/dL (6-20); Calcium 9.5 mg/dL (8.5-10.5); Carbon Dioxide 25 mmol/L (22-29); Globulin 2.7 g/dL (1.3-4.6); Glomerular Filtration Rate 104.6 mL/min (90-130); Glucose 262 mg/dL (65-115); Osmolality Calculated 300 mOsm/kg (285-295); Total Bilirubin 0.5 mg/dL (0.15-1.2); Total Protein 6.7 g/dL (6.6-8.7)
[2022-12-04 01:16] VITALS: BP 149/91; PULSE 97; RESP 18; O2SAT 96
== END 2022-12-04 01:58 | disposition home or self-care (01) ==
PROVIDERS: Emergency Provider Emergency Medicine; PCP Family Medicine
DX: R07.9 Chest pain, unspecified (principal); Z79.01 Long term (current) use of anticoagulants; Z79.82 Long term (current) use of aspirin; E11.22 Type 2 diabetes mellitus with diabetic chronic kidney disease; I13.0 Hypertensive heart and chronic kidney disease with heart failure and stage 1 through stage 4 chronic kidney disease, or unspecified chronic kidney disease; N18.9 Chronic kidney disease, unspecified; I50.9 Heart failure, unspecified; E78.2 Mixed hyperlipidemia
CPT/HCPCS: 71045; 80053; 84484; 85025; 85610; 93005; 94640; 96374; 96375; 99285; J2270; J2405; J7613

== ENCOUNTER → 2023-01-18 08:40 | Outpatient (BNVA) | payer MEDICAID, SELFPAY | PROVIDERS: PCP Family Medicine; Visit Provider Family Medicine | DX: E87.6 Hypokalemia (principal); T50.2X5A Adverse effect of carbonic-anhydrase inhibitors, benzothiadiazides and other diuretics, initial encounter | CPT/HCPCS: 80048 ==

== ENCOUNTER 2023-02-05 08:51 | Oncology outpatient (recurring) (ONCR) | payer MEDICAID, SELFPAY ==
[2023-02-05 09:15] VITALS: BP 149/92; PULSE 97; RESP 24; TEMP 36.8; O2SAT 93
[2023-02-05 09:52] VITALS: BP 122/71; PULSE 100; RESP 22; TEMP 36.7; O2SAT 90
--- NOTE | 2023-02-05 09:53 | PC.NURSE ---
pt denies s/sx reaction. no change in VS noted, pt advised to call dr office or go to ER in case of concerns
== END 2023-02-10 23:59 | disposition home or self-care (01) ==
PROVIDERS: PCP Family Medicine; Visit Provider Internal Medicine Pulmonary Disease
DX: J45.909 Unspecified asthma, uncomplicated (principal)
CPT/HCPCS: 96372

== ENCOUNTER → 2023-02-25 08:56 | Outpatient (BNVA) | payer MEDICAID, SELFPAY | PROVIDERS: PCP Family Medicine; Visit Provider Internal Medicine Pulmonary Disease | DX: J45.50 Severe persistent asthma, uncomplicated (principal); Z79.52 Long term (current) use of systemic steroids; Z68.45 Body mass index [BMI] 70 or greater, adult; E66.2 Morbid (severe) obesity with alveolar hypoventilation; R91.1 Solitary pulmonary nodule; Z99.81 Dependence on supplemental oxygen; J82.83 Eosinophilic asthma; R09.02 Hypoxemia; I48.91 Unspecified atrial fibrillation; Z79.01 Long term (current) use of anticoagulants | CPT/HCPCS: 99214 ==

== ENCOUNTER 2023-03-18 20:00 | Outpatient (CLI) | payer MEDICAID, SELFPAY | END 2023-03-18 20:01 | disposition home or self-care (01) | LOC: SLEEP 03-19 05:02 | PROVIDERS: PCP Family Medicine; Visit Provider Internal Medicine Pulmonary Disease | DX: G47.33 Obstructive sleep apnea (adult) (pediatric) (principal); E66.2 Morbid (severe) obesity with alveolar hypoventilation; Z99.81 Dependence on supplemental oxygen | CPT/HCPCS: 95811 ==

== ENCOUNTER → 2023-04-02 09:06 | Outpatient (BNVA) | payer MEDICAID, SELFPAY | PROVIDERS: PCP Family Medicine; Visit Provider Internal Medicine Cardiovascular Disease | DX: E66.2 Morbid (severe) obesity with alveolar hypoventilation (principal); J44.1 Chronic obstructive pulmonary disease with (acute) exacerbation; E87.6 Hypokalemia; J45.50 Severe persistent asthma, uncomplicated; Z79.52 Long term (current) use of systemic steroids; R07.89 Other chest pain; I48.19 Other persistent atrial fibrillation; E78.2 Mixed hyperlipidemia; Z68.45 Body mass index [BMI] 70 or greater, adult; Z99.81 Dependence on supplemental oxygen; F19.20 Other psychoactive substance dependence, uncomplicated; I13.0 Hypertensive heart and chronic kidney disease with heart failure and stage 1 through stage 4 chronic kidney disease, or unspecified chronic kidney disease; N18.9 Chronic kidney disease, unspecified; E11.22 Type 2 diabetes mellitus with diabetic chronic kidney disease; E11.65 Type 2 diabetes mellitus with hyperglycemia; Z79.84 Long term (current) use of oral hypoglycemic drugs; I50.9 Heart failure, unspecified | CPT/HCPCS: 99214 ==

== ENCOUNTER 2023-04-11 09:51 | Emergency (ER) | payer MEDICAID, SELFPAY ==
[2023-04-11] VITALS (27 sets, daily range): BP systolic 113–180; BP diastolic 80–100; PULSE 86–107; RESP 14–28; TEMP 36.8; O2SAT 95–100; BMI 94.5
--- NOTE | 2023-04-11 10:15 | ECG_ITS ---
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 Measurements Intervals [place] Rate: 91 P: 73 IA: 155 QRS: 73 QRSD: 150 T: 60 QT: 401 QTc: 493 Interpretive Statements SINUS RHYTHM RIGHT BUNDLE BRANCH BLOCK [120+ ms QRS DURATION, UPRIGHT V1, 40+ ms S IN I/aVL/V4/V5/V6] Compared to ECG 12/03/2022 23:14:14 Sinus tachycardia no longer present Electronically Signed On 04-12-2023 8:32:07 CDT by Rubens Gomez M.D. [id number]
--- NOTE | 2023-04-11 10:15 | XRR_ITS ---
PROCEDURE INFORMATION: Exam: XR Chest Exam date and time: 04/11/2023 10:29 AM Age: 52 years old Clinical indication: Shortness of breath; Additional info: Dyspnea TECHNIQUE: Imaging protocol: Radiologic exam of the chest. Views: 1 view. COMPARISON: CR (CHEST, ) 12/03/2022 11:59 PM FINDINGS: Lungs: Right hilar vascular congestion is seen stable since prior examination. The lungs show low volume but are otherwise clear Pleural spaces: Unremarkable. No pleural effusion. No pneumothorax. Heart/Mediastinum: Unremarkable. No cardiomegaly. Bones/joints: Unremarkable. XR/XR chest 1V portable [id number] IMPRESSION: 1. Stable right hilar vascular congestion 2. Low lung volumes 3. Otherwise No acute findings.
[2023-04-11 10:53] LABS: Basophils % 0.1 %; Hematocrit 34.6 % (37.0-47.0); Hemoglobin 10.7 g/dL (11.5-15.3); Lymphocytes # 0.9 10^3/uL (0.8-4.8); Lymphocytes % 10.9 %; Mean Corpuscular HGB Conc 30.9 g/dL (30.0-36.0); Mean Corpuscular Hemoglobin 29.6 pg (28.0-34.0); Mean Corpuscular Volume 95.6 fl (81-99); Mean Platelet Volume 10.1 fL (7.4-10.4); Monocytes # 0.5 10^3/uL (0.2-0.9); Monocytes % 5.8 %; Neutrophils # 6.49 10^3/uL (1.8-7.7); Neutrophils % 82.4 %; Nucleated Red Blood Cells % 0 %; Platelet Count 174 10^3/cmm (130-400); Red Blood Count 3.62 10^6/uL (4.1-5.3); Red Cell Distribution Width 14.2 % (12.1-15.1); White Blood Count 7.9 10^3/uL (4.0-10.0)
--- NOTE | 2023-04-11 11:06 | W.ED.SOB ---
HPI - SOB/Dyspnea General: Chief Complaint: Shortness of Breath/Dyspnea Stated Complaint: sob, possible shingles Time Seen by Provider: 04/11/23 10:00 History of Present Illness: HPI Narrative: Patient presents to the ER with complaints of increasing shortness of breath over the past few days. Patient states she has fluid overload before and is on Lasix currently. Patient states she is normally on 6 L of oxygen but she arrived to the ER without any oxygen because her portable 1 ran out. She was satting in the high 80s upon ambulation to the room where she was put on 6 L of oxygen per nasal cannula and her sats quickly went up to 98%. Patient denies any fevers chills nausea vomiting diarrhea etc. Review of Systems General: Reports: 10 or more systems reviewed and unremarkable except in HPI and below PFSH ED PFSH: Medical History Atrial fibrillation Atypical chest pain Chest pain Chest wall pain, chronic CHF (congestive heart failure) Chronic anticoagulation CKD (chronic kidney disease) Depression Diabetes mellitus type 2, uncontrolled, with complications Diabetic retinopathy Essential hypertension Hemangioma Left shoulder Infected sebaceous cyst of skin Mixed dyslipidemia Morbid obesity with BMI of 70 and over, adult Obesity hypoventilation syndrome Obstructive sleep apnea Right bundle branch block Right shoulder pain Severe persistent asthma dependent on systemic steroids Solitary pulmonary nodule Steroid dependence Surgical History History of hysterectomy S/P cholecystectomy Family History Mother Myocardial infarct Stroke Hypertension Father Myocardial infarct Social History Smoking and tobacco status: never smoked Alcohol intake: never Substance/Drug Use: never Female Reproductive History: Spontaneous abortions: No Physical Exam Const: COMMON NORMALS: no acute distress, average body habitus, patient oriented x3, no limitations, healthy appearing, alert and well nourished HENMT: COMMON NORMALS: normocephalic, atraumatic, hearing grossly normal bilaterally, external ears normal, Normal external nose present and moist oral mucous membranes HEAD & SCALP: normocephalic and atraumatic NOSE: Normal external nose present EXTERNAL EAR: Yes external ears normal Eye: COMMON NORMALS: Equal, round and reactive pupils present, EOMs intact bilaterally, conjunctivae normal and no scleral icterus CONJUNCTIVA: Yes conjunctivae normal PUPIL: Yes Equal, round and reactive pupils present Neck/C-Spine: COMMON NORMALS: full ROM, no lymphadenopathy, supple, no meningeal signs, no JVD and Thyroid normal THYROID: Thyroid normal Chest: COMMONS NORMALS: normal inspection of the chest and normal palpation of entire chest wall Cardio: COMMON NORMALS: no JVD, regular rate, regular rhythm, S1 normal heart sound present, S2 normal heart sound present, No gallops present (Cardio), No clicks present (Cardio) and No murmurs present (Cardio) RATE: regular rate RHYTHM: regular rhythm HEART SOUNDS: S1 normal heart sound present and S2 normal heart sound present GI: COMMON NORMALS: Normal to inspection, nondistended, normoactive bowel sounds present, Soft to palpation, non-tender, No hepatosplenomegaly present and no masses PALPATION: Yes Soft to palpation and Yes No hepatosplenomegaly present : COMMON NORMALS: Yes no CVA tenderness BLADDER/KIDNEY EXAM: Yes no CVA tenderness Back/Pelvis: COMMON NORMALS: no CVA tenderness Neuro: COMMON NORMALS: patient oriented x3 SENSORIUM/ORIENTATION: Yes alert MENINGEAL SIGNS: Yes no meningeal signs Course Vital Signs: Vital signs: Vital Signs Temperature 98.3 F 04/11/23 09:57 Pulse Rate 89 04/11/23 10:45 Respiratory Rate 18 04/11/23 10:45 Blood Pressure 180/82 04/11/23 10:45 Pulse Oximetry 98 04/11/23 10:45 Oxygen Delivery Me thod Nasal Cannula 04/11/23 10:40 Oxygen Flow Rate 6 04/11/23 10:40 MDM - SOB/Dyspnea Medical Decision Making Patient presents to the ER with complaints of increasing shortness of breath over the last few days. Patient is normally wear 6 L of oxygen but she showed up in the ER on no oxygen. Physical exam was performed lab work was obtained which were all essentially benign for the patient. Patient is morbidly obese. These labs were discussed with the patient today was talked about giving her additional dose of Lasix but she states she would just go home and and does herself. Patient be discharged home Differential Diagnosis Unlikely acute exacerbation of chronic obstructive airways disease, congestive heart failure, community acquired pneumonia, asthma with exacerbation or pulmonary embolism Lab Data I reviewed the patient's lab results. 04/11/23 10:25 04/11/23 10:25 Labs/Radiology: Radiology Impressions Chest X-Ray 04/11/23 10:15 IMPRESSION: 1. Stable right hilar vascular congestion 2. Low lung volumes 3. Otherwise No acute findings. Laboratory Results WBC 7.9 10^3/uL (4.0-10.0) 04/11/23 10:25 RBC 3.62 10^6/uL (4.1-5.3) L 04/11/23 10:25 Hgb 10.7 g/dL (11.5-15.3) L 04/11/23 10:25 Hct 34.6 % (37.0-47.0) L 04/11/23 10:25 MCV 95.6 fl (81-99) 04/11/23 10:25 MCH 29.6 pg (28.0-34.0) 04/11/23 10:25 MCHC 30.9 g/dL (30.0-36.0) 04/11/23 10:25 RDW 14.2 % (12.1-15.1) 04/11/23 10:25 Plt Count 174 10^3/cmm (130-400) 04/11/23 10:25 MPV 10.1 fL (7.4-10.4) 04/11/23 10:25 Neut % (Auto) 82.4 % 04/11/23 10:25 Lymph % (Auto) 10.9 % 04/11/23 10:25 [place] % (Auto) 5.8 % 04/11/23 10:25 Eos % (Auto) 0.0 % 04/11/23 10:25 Baso % (Auto) 0.1 % 04/11/23 10:25 Neut # (Auto) 6.49 10^3/uL (1.8-7.7) 04/11/23 10:25 Lymph # (Auto) 0.9 10^3/uL (0.8-4.8) 04/11/23 10:25 [place] # (Auto) 0.5 10^3/uL (0.2-0.9) 04/11/23 10:25 Eos # (Auto) 0.0 10^3/uL (0.0-0.8) 04/11/23 10:25 Baso # (Auto) 0.0 10^3/uL (0.0-0.1) 04/11/23 10:25 Nucleated RBC % (auto) 0 % 04/11/23 10:25 Nucleated RBCs # 0.0 /100WBC 04/11/23 10:25 Sodium 138 mmol/L (136-145) 04/11/23 10:25 Potassium 4.3 mmol/L (3.5-5.1) 04/11/23 10:25 Chloride 98 mmol/L (98-107) 04/11/23 10:25 Carbon Dioxide 29 mmol/L (22-29) 04/11/23 10:25 Anion Gap 15.3 (5-19) 04/11/23 10:25 BUN 8 mg/dL (6-20) 04/11/23 10:25 Creatinine 0.6 mg/dL (0.5-0.9) 04/11/23 10:25 GFR Calculation 104.6 mL/min (90-130) 04/11/23 10:25 Glucose 321 mg/dL (65-115) H 04/11/23 10:25 Calculated Osmolality 297 mOsm/kg (285-295) H 04/11/23 10:25 Calcium 9.1 mg/dL (8.5-10.5) 04/11/23 10:25 Magnesium 1.8 mg/dL (1.7-2.3) 04/11/23 10:25 Total Bilirubin 0.5 mg/dL (0.15-1.2) 04/11/23 10:25 AST 15 U/L (0-32) 04/11/23 10:25 ALT 26 U/L (0-33) 04/11/23 10:25 Alkaline Phosphatase 126 U/L (35-105) H 04/11/23 10:25 NT-Pro-B Natriuret Pep 73 pg/mL (0-125) 04/11/23 10:25 Total Protein 6.3 g/dL (6.6-8.7) L 04/11/23 10:25 Albumin 3.8 g/dL (3.5-5.2) 04/11/23 10:25 Globulin 2.5 g/dL (1.3-4.6) 04/11/23 10:25 EKG Data EKG 1: I personally reviewed and interpreted this EKG as follows: EKG Interpretation Date: 04/11/23 EKG interpretation time: 10:23 Prior EKG tracings: not available for review Interpretation: EKG showed normal sinus rhythm with a rate of 91 bpm, NV interval 155, QRS 150, QTc of 449, right bundle branch block, no ST-T wave changes Discharge Plan Discharge Patient Disposition: Home Clinical Impression: Shortness of breath Condition: Stable Prescriptions: No Action guaifenesin 400 mg tablet 400 mg PO BID valsartan 80 mg tablet 80 mg PO BEDTIME Qty: 90 1RF potassium chloride 20 mEq tablet extended release 20 meq PO DAILY@12 Qty: 90 1RF Eliquis 5 mg tablet 5 mg PO BID Qty: 90 3RF (DME) Ox Pendent See Rx Instructions .Route .MEDSUPPLY Qty: 1 0RF Rx Instructions: As directed Fish Oil 100-160-1,000 mg capsule 1 cap PO DAILY@12 multivitamin Tablet 1 tab PO QAM diphenhydramine HCl [Benadryl] 25 mg capsule 25 mg PO BEDTIME Victoza 3-Ozzie 0.6 mg/0.1 mL (18 mg/3 mL) pen injector 1.2 mg SUBCUT DAILY Qty: 9 5RF (DME) OneTouch Verio test strips Strip See Rx Instructions .Route Qty: 100 0RF Rx Instructions: As directed (DME) blood-glucose meter [OneTouch Verio Flex Start] Kit See Rx Instructions .Route Qty: 1 0RF Rx Instructions: As directed (DME) lancets [OneTouch UltraSoft Lancets] Misc See Rx Instructions .Route Qty: 100 0RF Rx Instructions: As directed montelukast 10 mg tablet 10 mg PO QAM Qty: 90 2RF Fasenra Pen 30 mg/mL auto-injector 30 mg SUBCUT Q28D Qty: 1 2RF Rx Instructions: Fasenra 30 mg every 28 days for first 3 doses, then 30 mg once every 8 weeks tramadol 50 mg tablet See Rx Instructions .ROUTE .COMPLEX Qty: 120 0RF Rx Instructions: 50MG PO DAILY AT 07:00,12:00 AND 100MG HS spironolactone 50 mg tablet 50 mg PO QAM Qty: 90 1RF albuterol sulfate 2.5 mg /3 mL (0.083 %) solution for nebulization See Rx Instructions .ROUTE .COMPLEX Qty: 180 0RF Dose Instruction: USE 1 VIAL IN NEBULIZER EVERY 6 HOURS NEEDED FOR SHORTNESS OF BREATH AND FOR WHEEZING Rx Instructions: USE 1 VIAL IN NEBULIZER EVERY 6 HOURS NEEDED FOR SHORTNESS OF BREATH AND FOR WHEEZING (DME) bariatric lift chair See Rx Instructions .Route .MEDSUPPLY Qty: 1 0RF Rx Instructions: As directed albuterol sulfate [Ventolin HFA] 90 mcg/actuation HFA aerosol inhaler 2 puff inhalation Q6H PRN (Reason: shortness of breath or wheezing) Qty: 6.7 3RF Spiriva Respimat 2.5 mcg/actuation mist 2 puff inhalation QAM budesonide-formoterol [Symbicort] 160-4.5 mcg/actuation HFA aerosol inhaler 2 puff inhalation BID Qty: 10.2 5RF magnesium oxide 200 mg magnesium Tablet 200 mg PO DAILY@12 celecoxib 200 mg capsule 200 mg PO BID PRN (Reason: Pain) cyclobenzaprine 10 mg tablet 10 mg PO Q6H PRN (Reason: Muscle Spasm) atorvastatin 80 mg tablet 80 mg PO DAILY bumetanide 2 mg tablet 2 mg PO DAILY prednisone 20 mg tablet 20 mg PO QAM Rx Instructions: IN MORNING citalopram 20 mg tablet 20 mg PO DAILY gabapentin 800 mg tablet 800 mg PO TID metoprolol tartrate 50 mg tablet 50 mg PO BID ondansetron 4 mg tablet,disintegrating 4 mg PO Q8H PRN (Reason: Nausea) Discharge Orders: Discharge ED (Routine); Ordered 04/11/23 Ordered By: Crow Rivera Referrals: Pal Caballero DO [Primary Care Provider] - 1 week Patient Instructions: Shortness of Breath (ED) Activity Restrictions/Additional Instructions: Please double up on your dose of Bumex for the next 3 days. Please follow-up with your family practice doc in the next week as needed. Coding Level of Care Code ED Housekeeper/Laundry Assistant for Alexandra Mojica
[2023-04-11 11:17] LABS: Alanine Aminotransferase 26 U/L (0-33); Albumin Level 3.8 g/dL (3.5-5.2); Alkaline Phosphatase 126 U/L (35-105); Anion Gap 15.3 (5-19); Aspartate Amino Transferase 15 U/L (0-32); Blood Urea Nitrogen 8 mg/dL (6-20); Calcium 9.1 mg/dL (8.5-10.5); Carbon Dioxide 29 mmol/L (22-29); Chloride 98 mmol/L (98-107); Globulin 2.5 g/dL (1.3-4.6); Glomerular Filtration Rate 104.6 mL/min (90-130); Glucose 321 mg/dL (65-115); Magnesium 1.8 mg/dL (1.7-2.3); NT Pro B Type Natriuretic Pept 73 pg/mL (0-125); Osmolality Calculated 297 mOsm/kg (285-295); Potassium 4.3 mmol/L (3.5-5.1); Sodium 138 mmol/L (136-145); Total Bilirubin 0.5 mg/dL (0.15-1.2); Total Protein 6.3 g/dL (6.6-8.7)
== END 2023-04-11 13:05 | disposition home or self-care (01) ==
PROVIDERS: Emergency Provider Emergency Medicine; PCP Family Medicine
DX: R06.02 Shortness of breath (principal); Z79.01 Long term (current) use of anticoagulants; I13.0 Hypertensive heart and chronic kidney disease with heart failure and stage 1 through stage 4 chronic kidney disease, or unspecified chronic kidney disease; E11.22 Type 2 diabetes mellitus with diabetic chronic kidney disease; N18.9 Chronic kidney disease, unspecified; I50.9 Heart failure, unspecified; E78.2 Mixed hyperlipidemia
CPT/HCPCS: 71045; 80053; 83735; 83880; 85025; 93005; 99285

== ENCOUNTER → 2023-05-06 07:59 | Outpatient (BNVA) | payer MEDICAID, SELFPAY | PROVIDERS: PCP Family Medicine; Visit Provider Internal Medicine Pulmonary Disease | DX: J45.901 Unspecified asthma with (acute) exacerbation (principal); H66.91 Otitis media, unspecified, right ear; J82.83 Eosinophilic asthma; E66.01 Morbid (severe) obesity due to excess calories; Z68.45 Body mass index [BMI] 70 or greater, adult; R09.02 Hypoxemia; R91.1 Solitary pulmonary nodule; G47.33 Obstructive sleep apnea (adult) (pediatric); Z79.52 Long term (current) use of systemic steroids; S46.002A Unspecified injury of muscle(s) and tendon(s) of the rotator cuff of left shoulder, initial encounter; W19.XXXA Unspecified fall, initial encounter | CPT/HCPCS: 71046; 99214 ==

== ENCOUNTER → 2023-08-09 08:55 | Outpatient (BNVA) | payer OTHER, MEDICAID, SELFPAY | PROVIDERS: PCP Family Medicine; Visit Provider Podiatrist Foot & Ankle Surgery | DX: R22.42 Localized swelling, mass and lump, left lower limb (principal); M79.672 Pain in left foot; M25.572 Pain in left ankle and joints of left foot; E11.42 Type 2 diabetes mellitus with diabetic polyneuropathy; M19.072 Primary osteoarthritis, left ankle and foot; M79.89 Other specified soft tissue disorders; M21.41 Flat foot [pes planus] (acquired), right foot; M21.42 Flat foot [pes planus] (acquired), left foot; Z79.85 Long-term (current) use of injectable non-insulin antidiabetic drugs; Z01.818 Encounter for other preprocedural examination | CPT/HCPCS: 73600; 73630 ==

== ENCOUNTER → 2023-09-03 12:25 | Outpatient (BNVA) | payer OTHER, MEDICAID, SELFPAY | PROVIDERS: PCP Family Medicine; Visit Provider Internal Medicine Pulmonary Disease | DX: L03.90 Cellulitis, unspecified (principal); J44.9 Chronic obstructive pulmonary disease, unspecified; E66.01 Morbid (severe) obesity due to excess calories; Z68.45 Body mass index [BMI] 70 or greater, adult; J45.50 Severe persistent asthma, uncomplicated; Z79.52 Long term (current) use of systemic steroids; E66.2 Morbid (severe) obesity with alveolar hypoventilation; R91.1 Solitary pulmonary nodule; Z99.81 Dependence on supplemental oxygen; G47.33 Obstructive sleep apnea (adult) (pediatric) | CPT/HCPCS: 36415; 80048; 83036; 83735 ==

== ENCOUNTER → 2023-12-06 09:40 | Outpatient (BNVA) | payer MEDICARE, SELFPAY | PROVIDERS: PCP Family Medicine; Visit Provider Internal Medicine Pulmonary Disease | DX: Z68.45 Body mass index [BMI] 70 or greater, adult; J45.50 Severe persistent asthma, uncomplicated; Z79.52 Long term (current) use of systemic steroids; E66.2 Morbid (severe) obesity with alveolar hypoventilation; R91.1 Solitary pulmonary nodule; Z99.81 Dependence on supplemental oxygen | CPT/HCPCS: 99214 ==

== ENCOUNTER → 2023-12-30 09:31 | Outpatient (BNVA) | payer MEDICARE, SELFPAY | PROVIDERS: PCP Family Medicine; Visit Provider Family Medicine | DX: E11.319 Type 2 diabetes mellitus with unspecified diabetic retinopathy without macular edema (principal); I10 Essential (primary) hypertension; E78.2 Mixed hyperlipidemia; I48.19 Other persistent atrial fibrillation; I50.42 Chronic combined systolic (congestive) and diastolic (congestive) heart failure; E55.9 Vitamin D deficiency, unspecified; I50.9 Heart failure, unspecified; R79.89 Other specified abnormal findings of blood chemistry; F32.A Depression, unspecified; E83.42 Hypomagnesemia; J45.909 Unspecified asthma, uncomplicated; F19.20 Other psychoactive substance dependence, uncomplicated | CPT/HCPCS: 80053; 80061; 82306; 82607; 83036; 83735; 84439; 84443; 85025 ==

== ENCOUNTER 2024-02-11 11:24 | Emergency (ER) | payer MEDICARE, SELFPAY ==
[2024-02-11 11:38] VITALS: BP 150/85; PULSE 98; RESP 26; TEMP 36.8; O2SAT 95; BMI 94.5
--- NOTE | 2024-02-11 11:44 | W.ED.LOWEXIN ---
HPI - Extremity Injury (Lower) General: Chief Complaint: Extremity Injury, Lower Stated Complaint: fell, right leg hurting Time Seen by Provider: 02/11/24 11:27 Source: patient and family Mode of arrival: wheelchair Limitations: no limitations History of Present Illness: Patient is a 53-year-old female with an extensive past medical history including morbid obesity with a BMI of 94.5, severe asthma on systemic steroids, obesity hypoventilation syndrome, RICHIE, chronically on 6 L of oxygen, atrial fibrillation, CHF, depression, HLD, HTN here for complaints of right knee pain. States she twisted knee 2-3 weeks ago and has had pain since. Can normally ambulate with the help of two canes but states she cannot currently due to knee pain. Can transfer in her home with assist from her presumed significant other that accompanies her today. Has not noticed any swelling although this would be difficult to ascertain given morbid obesity status. She has not noticed any color or temperature changes or sensation changes to the leg. No pain at rest-only with ambulating. Reports minor right lateral leg abrasion that she sustained just prior to arrival after she caught it on a portion of the wheelchair. complaint: knee injury Onset (ago): week(s) Injury: Right: knee Place: home Severity: moderate Relieving factors: immobilization Exacerbating factors: weight bearing, movement and palpation Context: walking (twisted) Associated symptoms: Reports inability to bear weight Other symptoms: none Review of Systems Const: Denies: fever(s) Card: Denies: chest pain Resp: Reports: dyspnea (at baseline; chronically on 6L of oxygen) Musc: Reports: extremity pain (R knee); Denies: neck pain, back pain, extremity swelling, joint pain or joint swelling Skin/Breast: Reports: other (abrasion lateral aspect R LE) Neuro: Denies: numbness in extremities, weakness in extremities or sensory changes PFS ED PFSH: Medical History Chest wall pain, chronic Atrial fibrillation Atypical chest pain Steroid dependence Obstructive sleep apnea Solitary pulmonary nodule Chest pain Obesity hypoventilation syndrome CHF (congestive heart failure) Morbid obesity with BMI of 70 and over, adult Severe persistent asthma dependent on systemic steroids Diabetic retinopathy Depression Right bundle branch block Infected sebaceous cyst of skin Right shoulder pain Chronic anticoagulation Mixed dyslipidemia Essential hypertension Hemangioma Left shoulder CKD (chronic kidney disease) Diabetes mellitus type 2, uncontrolled, with complications Surgical History History of hysterectomy S/P cholecystectomy Family History Mother Myocardial infarct Stroke Hypertension Father Myocardial infarct Social History Smoking and tobacco/nicotine status: never used tobacco/nicotine Alcohol intake: never Substance/Drug Use: never Female Reproductive History: Spontaneous abortions: No Physical Exam Const: COMMON NORMALS: no acute distress, patient oriented x3, no limitations and alert GENERAL APPEARANCE: cooperative NUTRITIONAL APPEARANCE: obese morbidly obese (super morbid obesity with a BMI of 94.5) Resp: COMMON NORMALS: normal respiratory effort OTHER: chronic respiratory failure on 6L O2 continuously Cardio: COMMON NORMALS: regular rate RATE: regular rate Extremity: COMMON NORMALS: capillary refill normal and no calf tenderness NARRATIVE EXTREMITY EXAM: pt complains of posterior R knee pain; her exam is significantly limited given her super morbid obesity status-she is almost 640 lbs; she cannot functionally bend her knee even at baseline; I would not be able to appreciate any discernible swelling given her baseline; anatomy is not able to be appreciated or palpated; her extremity is NV intact; she has chronic stasis dermatitis bilaterally GENERAL: Yes normal exam except as noted Neuro: COMMON NORMALS: patient oriented x3, moves all extremities, no focal motor deficits and no sensory deficits noted SENSORIUM/ORIENTATION: Yes alert GAIT: Yes Unable to assess gait Skin: NARRATIVE SKIN EXAM: pt has two minimal abrasions to R lateral leg that she sustained just 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 Patient states she is normally ambulatory with the help of 2 canes but states she has required additional help following her injury. She has not noticed any swelling to the extremity, nor do I, however as previously stated, this would be difficult to ascertain given her super morbid obesity status. Her XR is negative for bony injury. DDx includes knee sprain, internal derangement of knee, DVT. Patient is already on anticoagulation. Overall her exam of the extremity was significantly limited. Recommend she follow-up with primary care. Medical Records I reviewed the patient's medical records. Lab Data Radiology Impressions Knee X-Ray 02/11/24 11:56 IMPRESSION: 1. No fracture. 2. Moderately severe tricompartmental DJD. All radiology interpretation(s) finalized by discharge Discharge Plan Discharge Patient Disposition: Home Clinical Impression: Injury of knee, right Qualifiers: Encounter type: initial encounter Qualified Code(s): S89.91XA - Unspecified injury of right lower leg, initial encounter Condition: Stable Prescriptions: No Action guaifenesin 400 mg tablet 800 mg PO BID (DME) Ox Pendent See Rx Instructions .Route .MEDSUPPLY Qty: 1 0RF Rx Instructions: As directed sodium chloride 0.9 % solution for nebulization 2.5 ml inhalation Q6H Qty: 300 5RF (DME) Diabetic shoes with custom molded insoles See Rx Instructions .Route .MEDSUPPLY Qty: 1 0RF Rx Instructions: As directed by [facility] prednisone 10 mg tablet 10 mg PO DAILY Qty: 60 1RF Fasenra Pen 30 mg/mL auto-injector 30 mg SUBCUT .Q8 weeks Qty: 1 6RF Rx Instructions: 30 mg once every 8 weeks metformin 750 mg tablet extended release 24 hr 750 mg PO DAILY Qty: 90 3RF (DME) bariatric lift chair See Rx Instructions .Route .MEDSUPPLY Qty: 1 0RF Rx Instructions: Patient is able to ambulate once she is standing. prednisone 2.5 mg tablet 2.5 mg PO BID Qty: 60 2RF Fish Oil 100-160-1,000 mg capsule 1 cap PO DAILY@12 multivitamin Tablet 1 tab PO QAM diphenhydramine HCl [Benadryl] 25 mg capsule 25 mg PO BEDTIME levofloxacin 500 mg tablet 500 mg PO DAILY Qty: 7 0RF (DME) ZilicoTouch Verio test strips Strip See Rx Instructions .Route Qty: 100 0RF Rx Instructions: As directed ([facility]) blood-glucose meter [OneTouch Verio Flex Start] Kit See Rx Instructions .Route Qty: 1 0RF Rx Instructions: As directed ([facility]) lancets [OneTouch UltraSoft Lancets] Misc See Rx Instructions .Route Qty: 100 0RF Rx Instructions: As directed metoprolol tartrate 50 mg tablet 50 mg PO BID Qty: 180 3RF (DME) Dexcom G7 Personnel Manager Misc See Rx Instructions .Route Qty: 1 0RF Rx Instructions: As directed spironolactone 50 mg tablet 50 mg PO QAM Qty: 90 1RF magnesium oxide 200 mg magnesium tablet 200 mg PO DAILY@12 Qty: 90 1RF prednisone 20 mg tablet 20 mg PO DAILY Qty: 60 2RF (DME) Dexcom G7 Sensor Device See Rx Instructions .ROUTE .COMPLEX Qty: 1 5RF Dose Instruction: USE DIRECTED Rx Instructions: USE DIRECTED valsartan 80 mg tablet See Rx Instructions .ROUTE .COMPLEX Qty: 30 5RF Dose Instruction: TAKE 1 TABLET BY MOUTH AT BEDTIME Rx Instructions: TAKE 1 TABLET BY MOUTH AT BEDTIME sulfamethoxazole-trimethoprim 800-160 mg tablet See Rx Instructions .ROUTE .COMPLEX Qty: 36 1RF Dose Instruction: TAKE 1 TABLET BY MOUTH EVERY DAY ON WEDNESDAY, WEDNESDAY AND WEDNESDAY DIRECTED Rx Instructions: TAKE 1 TABLET BY MOUTH EVERY DAY ON WEDNESDAY, WEDNESDAY AND WEDNESDAY DIRECTED albuterol sulfate 2.5 mg /3 mL (0.083 %) solution for nebulization See Rx Instructions .ROUTE .COMPLEX Qty: 180 5RF Dose Instruction: use 1 vial in nebulizer EVERY 6 HOURS NEEDED FOR SHORTNESS OF BREATH and wheezing Rx Instructions: use 1 vial in nebulizer EVERY 6 HOURS NEEDED FOR SHORTNESS OF BREATH and wheezing Trelegy Ellipta 100-62.5-25 mcg blister with device 1 inh inhalation DAILY Qty: 60 6RF hydrocodone-acetaminophen 5-325 mg tablet 1 tab PO Q6H PRN (Reason: pain) 30 Days Qty: 120 0RF Ozempic 2 mg/dose (8 mg/3 mL) pen injector See Rx Instructions .ROUTE .COMPLEX Qty: 3 2RF Dose Instruction: inject 2mg SUBCUTANEOUSLY ONCE a week Rx Instructions: inject 2mg SUBCUTANEOUSLY ONCE a week montelukast 10 mg tablet See Rx Instructions .ROUTE .COMPLEX Qty: 90 1RF Dose Instruction: TAKE 1 TABLET BY MOUTH EVERY MORNING FOR breathing Rx Instructions: TAKE 1 TABLET BY MOUTH EVERY MORNING FOR breathing potassium chloride 20 mEq tablet extended release See Rx Instructions .ROUTE .COMPLEX Qty: 30 0RF Dose Instruction: TAKE 1 TABLET BY MOUTH EVERY DAY at NOON Rx Instructions: TAKE 1 TABLET BY MOUTH EVERY DAY at NOON celecoxib 200 mg capsule 200 mg PO BID PRN (Reason: PAIN AND INFLAMMATION) cyclobenzaprine 10 mg tablet 10 mg PO Q6H PRN (Reason: MUSCLE SPASMS) atorvastatin 80 mg tablet 80 mg PO BEDTIME bumetanide 2 mg tablet 2 mg PO DAILY citalopram 20 mg tablet 20 mg PO DAILY gabapentin 800 mg tablet 800 mg PO TID baclofen 10 mg tablet 10 mg PO BID PRN (Reason: Pain) albuterol sulfate 90 mcg/actuation HFA aerosol inhaler 2 puff inhalation Q6H PRN (Reason: Shortness Of Breath Or Wheezing) Eliquis 5 mg tablet 5 mg PO BID ondansetron 4 mg tablet,disintegrating 4 mg PO Q8H PRN (Reason: Nausea) Discharge Orders: Discharge ED (Routine); Ordered 02/11/24 Ordered By: Sharron Gtz Referrals: Pal Caballero DO [Primary Care Provider] - Patient Instructions: Knee Pain (ED) Coding Level of Care Code ED Hvac Service Tech for Alexandra Mojica
--- NOTE | 2024-02-11 11:56 | XR_ITS ---
WS: [email or web address] Exam: XR knee RT 3V* [id number] Date/Time of Exam: 02/11/2024 12:14 PM Reason For Exam: injury/pain No acute fracture. Tricompartmental degenerative change most severe involving the medial compartment. No obvious joint effusion. XR/XR knee RT 3V* [id number] IMPRESSION: 1. No fracture. 2. Moderately severe tricompartmental DJD.
[2024-02-11 12:51] VITALS: BP 144/95; PULSE 91; RESP 16; O2SAT 95
[2024-02-11 12:55] VITALS: BP 144/65; PULSE 91; O2SAT 98
== END 2024-02-11 13:22 | disposition home or self-care (01) ==
PROVIDERS: Emergency Provider Physician Assistant; PCP Family Medicine
DX: S89.91XA Unspecified injury of right lower leg, initial encounter (principal); Z79.01 Long term (current) use of anticoagulants; Z79.85 Long-term (current) use of injectable non-insulin antidiabetic drugs; Z79.84 Long term (current) use of oral hypoglycemic drugs; S80.811A Abrasion, right lower leg, initial encounter; J96.10 Chronic respiratory failure, unspecified whether with hypoxia or hypercapnia; Z99.81 Dependence on supplemental oxygen; W22.8XXA Striking against or struck by other objects, initial encounter; E11.22 Type 2 diabetes mellitus with diabetic chronic kidney disease; I13.0 Hypertensive heart and chronic kidney disease with heart failure and stage 1 through stage 4 chronic kidney disease, or unspecified chronic kidney disease; N18.9 Chronic kidney disease, unspecified; I50.9 Heart failure, unspecified; E78.2 Mixed hyperlipidemia; E66.01 Morbid (severe) obesity due to excess calories; Z68.45 Body mass index [BMI] 70 or greater, adult; X50.1XXA Overexertion from prolonged static or awkward postures, initial encounter
CPT/HCPCS: 73562; 99283

== ENCOUNTER → 2024-04-12 10:45 | Outpatient (BNVA) | payer MEDICARE, SELFPAY | PROVIDERS: PCP Family Medicine; Visit Provider Family Medicine | DX: E55.9 Vitamin D deficiency, unspecified (principal); F19.20 Other psychoactive substance dependence, uncomplicated; I10 Essential (primary) hypertension; E78.2 Mixed hyperlipidemia; N18.9 Chronic kidney disease, unspecified; E11.319 Type 2 diabetes mellitus with unspecified diabetic retinopathy without macular edema; F32.A Depression, unspecified; R79.89 Other specified abnormal findings of blood chemistry | CPT/HCPCS: 80053; 80061; 82306; 82533; 82607; 83036; 84439; 84443; 85025 ==

== ENCOUNTER 2024-07-27 18:56 | Emergency (ER) | payer MEDICARE, SELFPAY ==
[2024-07-27 18:59] VITALS: BP 165/94; PULSE 90; RESP 20; TEMP 36.7; O2SAT 95; BMI 96.0
--- NOTE | 2024-07-27 19:06 | XRR_ITS ---
PROCEDURE INFORMATION: Exam: XR Chest Exam date and time: 07/27/2024 7:16 PM Age: 54 years old Clinical indication: Pain; Chest pressure; Additional info: Right chest pain TECHNIQUE: Imaging protocol: Radiologic exam of the chest. Views: 1 view. COMPARISON: CR XR chest 2V* [id number] 05/06/2023 9:20 AM FINDINGS: Lungs: Mild interstitial pulmonary edema. Stable linear scarring in the right and left mid lung. Pleural spaces: No pleural effusion. No pneumothorax. Heart/Mediastinum: Cardiac silhouette is moderately enlarged. Mediastinal contours are unremarkable. Vasculature: Vascular calcifications in the aorta. Bones/joints: Unremarkable for age. XR/XR chest 1V portable [id number] IMPRESSION: 1. Mild interstitial pulmonary edema. 2. Incidental/nonacute findings are listed in the report.
--- NOTE | 2024-07-27 19:06 | XRR_ITS ---
PROCEDURE INFORMATION: Exam: XR Right Shoulder Exam date and time: 07/27/2024 7:16 PM Age: 54 years old Clinical indication: Pain; Shoulder; Right; Additional info: Pain no trauma TECHNIQUE: Imaging protocol: Radiologic exam of the right shoulder. Views: 2 or more views. COMPARISON: CR XR chest 1V portable [id number] 07/27/2024 7:16 PM FINDINGS: Bones/joints: Moderate/large osteophytes at the right glenoid and right humerus. No acute fracture. No dislocation. Bones are mildly osteopenic. Lungs: Mild interstitial pulmonary edema in the visualized right lung. Soft tissues: No soft tissue swelling or soft tissue emphysema. No radiopaque foreign body. XR/XR shoulder RT min 2V* [id number] IMPRESSION: 1. Moderate/large osteophytes at the right glenoid and right humerus. 2. No acute fracture of the right shoulder. Followup radiographs recommended in 7-14 days if clinical concern for fracture persists. 3. Mild interstitial pulmonary edema in the visualized right lung.
--- NOTE | 2024-07-27 19:12 | ED_ITS ---
HPI - Fever 2 General: Chief Complaint: Fever Stated Complaint: Neck/ Shoulder pain Time Seen by Provider: 07/27/24 19:06 History of Present Illness: Patient brought in by self how with complaints of right neck and shoulder pain she think she overused it pulling herself up in bed this there was a several weeks ago. Has not got any better. Patient has had a fever up to 103 degrees off and on for the last couple days. She did see her primary care doc as a teleconference today who thought she should go in to the ER and be seen and further evaluated for the fever. She denies any worsening shortness of breath compared to her normal. Patient is on oxygen at all times. Related Data Home Medications Medication Instructions Recorded Confirmed multivitamin 1 tab PO QAM 01/12/22 07/12/24 omega 8-ffh-tqu-fish oil 100 1 cap PO DAILY@12 01/12/22 07/12/24 mg-160 mg-1,000 mg capsule (Fish Oil) diphenhydramine HCl 25 mg capsule 25 mg PO BEDTIME 04/20/22 07/12/24 (Benadryl) guaifenesin 400 mg tablet 800 mg PO BID 04/20/22 07/12/24 ondansetron 4 mg disintegrating 4 mg PO Q8H PRN Nausea 04/11/23 07/12/24 tablet sodium chloride 0.9 % for 2.5 ml inhalation Q6H PRN 02/11/24 07/12/24 nebulization Shortness Of Breath sulfamethoxazole 800 See Rx Instructions .Route .COMPLEX 02/11/24 07/12/24 mg-trimethoprim 160 mg tablet Previous Rx's Medication Instructions Recorded blood sugar diagnostic (OneTouch #100 ea 12/08/22 Verio test strips) blood-glucose meter (OneTouch #1 ea 12/08/22 Verio Flex Start kit) lancets (OneTouch UltraSoft #100 ea 12/08/22 Lancets) Ox Pendent #1 ea 02/25/23 blood-glucose meter,continuous #1 ea 07/02/23 (Lighting by LED[employer] G7 Rolfer) Diabetic shoes with custom molded #1 ea 08/09/23 insoles magnesium oxide 200 mg PO DAILY@12 #90 tabs 09/09/23 spironolactone 50 mg tablet 50 mg PO QAM #90 tabs 09/09/23 bariatric lift chair #1 ea 11/17/23 metformin 750 mg tablet,extended 750 mg PO DAILY #90 tabs 11/17/23 release 24 hr benralizumab 30 mg/mL subcutaneous 30 mg SUBCUT .Q8 weeks #1 mL 12/06/23 auto-injector (Fasenra Pen) triamcinolone acetonide 0.1 % 1 applic topical DAILY #453.6 grams 04/12/24 topical cream wheelchair #1 ea 05/09/24 celecoxib 200 mg capsule 200 mg PO BID PRN PAIN AND 05/16/24 INFLAMMATION #60 caps gabapentin 800 mg tablet 800 mg PO TID #90 tabs 05/16/24 atorvastatin 80 mg tablet See Rx Instructions .Route 05/26/24 .COMPLEX #90 tabs blood-glucose sensor (Dexcom G7 #1 ea 06/05/24 Sensor device) citalopram 20 mg tablet See Rx Instructions .Route 06/06/24 .COMPLEX #30 tabs valsartan 80 mg tablet See Rx Instructions .Route 06/06/24 .COMPLEX #30 tabs albuterol sulfate 90 mcg/actuation See Rx Instructions .Route 06/14/24 aerosol inhaler .COMPLEX #8.5 grams apixaban 5 mg tablet (Eliquis) See Rx Instructions .Route 06/14/24 .COMPLEX #90 tabs bumetanide 2 mg tablet See Rx Instructions .Route 06/15/24 .COMPLEX #60 tabs sodium chloride 0.9 % for See Rx Instructions .Route 06/28/24 nebulization .COMPLEX #300 mL metoprolol tartrate 75 mg tablet 75 mg PO BID #180 tabs 07/03/24 potassium chloride 20 mEq See Rx Instructions .Route 07/04/24 tablet,extended release(part/cryst) .COMPLEX #30 tabs baclofen 10 mg tablet See Rx Instructions .Route 07/12/24 .COMPLEX #90 tabs hydrocodone 10 mg-acetaminophen 1 tab PO Q6H pain 30 days #120 tabs 07/12/24 325 mg tablet fluticasone fur. 100 mcg-umeclid 1 inh inhalation DAILY #60 ea 07/17/24 62.5 mcg-vilant 25 mcg inhalat.powder (Trelegy Ellipta) cyclobenzaprine 10 mg tablet See Rx Instructions .Route 07/26/24 .COMPLEX #120 tabs montelukast 10 mg tablet See Rx Instructions .Route 07/26/24 .COMPLEX #90 tabs oxycodone-acetaminophen 10 mg-325 1 tab PO Q8H PRN pain #14 tabs 07/27/24 mg tablet (Percocet) Allergies Allergy/AdvReac Type Severity Reaction Status Date / Time adhesive tape Allergy ALGY-Bliste Verified 04/12/24 09:09 r latex Allergy ALGY-Bliste Verified 04/12/24 09:09 r Penicillins Allergy ALGY-Hives Verified 04/12/24 09:09 Review of Systems 2 General: Reports: 10 or more systems reviewed and unremarkable except in HPI and below PFSH ED 2 PFSH: Medical History Chest wall pain, chronic Atrial fibrillation Atypical chest pain Steroid dependence Obstructive sleep apnea Solitary pulmonary nodule Chest pain Obesity hypoventilation syndrome CHF (congestive heart failure) Morbid obesity with BMI of 70 and over, adult Severe persistent asthma dependent on systemic steroids Diabetic retinopathy Depression Right bundle branch block Infected sebaceous cyst of skin Right shoulder pain Chronic anticoagulation Mixed dyslipidemia Essential hypertension Hemangioma Left shoulder CKD (chronic kidney disease) Diabetes mellitus type 2, uncontrolled, with complications Surgical History History of hysterectomy S/P cholecystectomy Family History Mother Myocardial infarct Stroke Hypertension Father Myocardial infarct Social History Smoking and tobacco/nicotine status: never used tobacco/nicotine Alcohol intake: never Substance/Drug Use: never Female Reproductive History: Spontaneous abortions: No Physical Exam 2 Const: COMMON NORMALS: no acute distress, average body habitus, patient oriented x3, no limitations, healthy appearing, alert and well nourished HENMT: COMMON NORMALS: normocephalic, atraumatic, hearing grossly normal bilaterally, external ears normal, Normal external nose present and moist oral mucous membranes HEAD & SCALP: normocephalic and atraumatic NOSE: Normal external nose present EXTERNAL EAR: Yes external ears normal Neck/C-Spine: COMMON NORMALS: no JVD Chest: COMMONS NORMALS: normal inspection of the chest and normal palpation of entire chest wall Resp: COMMON NORMALS: normal respiratory effort, No retractions, No use of accessory muscles and clear to auscultation bilaterally AUSCULTATION: clear to auscultation bilaterally Cardio: COMMON NORMALS: no JVD, regular rate, regular rhythm, S1 normal heart sound present, S2 normal heart sound present, No gallops present (Cardio), No clicks present (Cardio), No murmurs present (Cardio) and No rub (Cardio) R ATE: regular rate RHYTHM: regular rhythm HEART SOUNDS: S1 normal heart sound present and S2 normal heart sound present GI: COMMON NORMALS: Normal to inspection, nondistended, normoactive bowel sounds present, Soft to palpation, non-tender, No hepatosplenomegaly present and no masses PALPATION: Yes Soft to palpation and Yes No hepatosplenomegaly present Neuro: COMMON NORMALS: patient oriented x3 SENSORIUM/ORIENTATION: Yes alert Course 2 Vital Signs: Vital signs: Vital Signs Temperature 98.1 F 07/27/24 18:59 Pulse Rate 87 07/27/24 19:34 Respiratory Rate 20 H 07/27/24 18:59 Blood Pressure 152/89 07/27/24 19:34 Pulse Oximetry 98 07/27/24 19:34 MDM - Fever Medical Decision Making Lab work was obtained and included CBC CMP UA, chest x-ray, right shoulder x- ray, COVID RSV influenza all of which was essentially benign. No acute cause for fever or infection. Patient was given a Percocet 10/325 mg for pain here. Patient follow-up with her PCP in approximately 7 days ago to arrange an appointment with the orthopedic surgeon if needed for her shoulder. Medical Records I reviewed the patient's medical records. Lab Data I reviewed the patient's lab results. 07/27/24 19:14 07/27/24 19:14 Radiology Impressions Chest X-Ray 07/27/24 19:06 IMPRESSION: 1. Mild interstitial pulmonary edema. 2. Incidental/nonacute findings are listed in the report. Shoulder X-Ray 07/27/24 19:06 IMPRESSION: 1. Moderate/large osteophytes at the right glenoid and right humerus. 2. No acute fracture of the right shoulder. Followup radiographs recommended in 7-14 days if clinical concern for fracture persists. 3. Mild interstitial pulmonary edema in the visualized right lung. Laboratory Results WBC 6.87 10^3/uL (3.29-11.43) 07/27/24 19:14 RBC 3.80 10^6/uL (3.85-5.65) L 07/27/24 19:14 Hgb 10.10 g/dL (11.27-16.99) L 07/27/24 19:14 Hct 32.7 % (36-47) L 07/27/24 19:14 MCV 86.1 fl (85-98) 07/27/24 19:14 MCH 26.6 pg (27-33) L 07/27/24 19:14 MCHC 30.9 g/dL (30-55) 07/27/24 19:14 RDW 14.4 % (12.1-15.1) 07/27/24 19:14 Plt Count 254 10^3/cmm (157-399) 07/27/24 19:14 MPV 9.8 fL (7.4-10.4) 07/27/24 19:14 Neut % (Auto) 76.7 % 07/27/24 19:14 Lymph % (Auto) 16.2 % 07/27/24 19:14 [place] % (Auto) 6.6 % 07/27/24 19:14 Eos % (Auto) 0.0 % 07/27/24 19:14 Baso % (Auto) 0.1 % 07/27/24 19:14 Neut # (Auto) 5.27 10^3/uL (1.8-7.7) 07/27/24 19:14 Lymph # (Auto) 1.1 10^3/uL (0.8-4.8) 07/27/24 19:14 [place] # (Auto) 0.5 10^3/uL (0.2-0.9) 07/27/24 19:14 Eos # (Auto) 0.0 10^3/uL (0.0-0.8) 07/27/24 19:14 Baso # (Auto) 0.0 10^3/uL (0.0-0.1) 07/27/24 19:14 Nucleated RBC % (auto) 0 % 07/27/24 19:14 Nucleated RBCs # 0.0 /100WBC 07/27/24 19:14 Sodium 137 mmol/L (136-145) 07/27/24 19:14 Potassium 4.5 mmol/L (3.5-5.1) 07/27/24 19:14 Chloride 98 mmol/L (98-107) 07/27/24 19:14 Carbon Dioxide 30 mmol/L (22-29) H 07/27/24 19:14 Anion Gap 13.5 (5-19) 07/27/24 19:14 BUN 9 mg/dL (6-20) 07/27/24 19:14 Creatinine 0.5 mg/dL (0.5-0.9) 07/27/24 19:14 GFR Calculation 128.1 mL/min (90-130) 07/27/24 19:14 Glucose 124 mg/dL (65-115) H 07/27/24 19:14 Calculated Osmolality 284 mOsm/kg (285-295) L 07/27/24 19:14 Calcium 9.2 mg/dL (8.5-10.5) 07/27/24 19:14 Total Bilirubin 0.6 mg/dL (0.15-1.2) 07/27/24 19:14 AST 11 U/L (0-32) 07/27/24 19:14 ALT 10 U/L (0-33) 07/27/24 19:14 Alkaline Phosphatase 153 U/L (35-105) H 07/27/24 19:14 Total Protein 7.0 g/dL (6.6-8.7) 07/27/24 19:14 Albumin 4.1 g/dL (3.5-5.2) 07/27/24 19:14 Globulin 2.9 g/dL (1.3-4.6) 07/27/24 19:14 Procalcitonin 0.04 ng/mL (0-0.5) 07/27/24 19:14 Urine Color Yellow (Yellow) 07/27/24 20:27 Urine Appearance Clear (CLEAR) 07/27/24 20: Urine pH 7.0 (5-7) 07/27/24 20:27 Ur Specific [place] 1.006 (1.005-1.030) 07/27/24 20:27 Urine Protein Negative (Negative) 07/27/24 20: Urine Glucose (UA) Negative (Normal) 07/27/24 20: Urine Ketones Negative (Negative) 07/27/24 20:27 Urine Blood Negative (Negative) 07/27/24 20:27 Urine Nitrate Negative (Negative) 07/27/24 20: Urine Bilirubin Negative (Negative) 07/27/24 20: Urine Urobilinogen 1.0 mg/dL (Negative) 07/27/24 20:27 Ur Leukocyte Esterase Negative (Negative) 07/27/24 20:27 Urine RBC 0-2 /hpf (0-2) 07/27/24 20:27 Urine WBC 0-5 /hpf (0-5) 07/27/24 20:27 Ur Squamous Epith Cells 0-5 /hpf (0-5) 07/27/24 20:27 Amorphous Sediment Not Reportable 07/27/24 20:27 Urine Bacteria None seen /hpf (NONE) 07/27/24 20: Hyaline Casts 0.40 /lpf 07/27/24 20:27 Coronavirus (PCR) Negative (Negative) 07/27/24 19:20 Influenza A (PCR) Negative (Negative) 07/27/24 19:20 Influenza Type B (PCR) Negative (Negative) 07/27/24 19:20 RSV (PCR) Negative (Negative) 07/27/24 19:20 All radiology interpretation(s) finalized by discharge Discharge Plan Discharge Patient Disposition: Home Clinical Impression: Fever of unknown origin, Acute pain of right shoulder Condition: Stable Prescriptions: New oxycodone-acetaminophen [Percocet] 10-325 mg tablet 1 tab PO Q8H PRN (Reason: pain) Qty: 14 0RF No Action guaifenesin 400 mg tablet 800 mg PO BID (DME) Ox Pendent See Rx Instructions .Route .MEDSUPPLY Qty: 1 0RF Rx Instructions: As directed (DME) Diabetic shoes with custom molded insoles See Rx Instructions .Route .MEDSUPPLY Qty: 1 0RF Rx Instructions: As directed by [facility] Fasenra Pen 30 mg/mL auto-injector 30 mg SUBCUT .Q8 weeks Qty: 1 6RF Rx Instructions: 30 mg once every 8 weeks metformin 750 mg tablet extended release 24 hr 750 mg PO DAILY Qty: 90 3RF (DME) bariatric lift chair See Rx Instructions .Route .MEDSUPPLY Qty: 1 0RF Rx Instructions: Patient is able to ambulate once she is standing. metoprolol tartrate 75 mg tablet 75 mg PO BID Qty: 180 3RF Fish Oil 100-160-1,000 mg capsule 1 cap PO DAILY@12 multivitamin Tablet 1 tab PO QAM diphenhydramine HCl [Benadryl] 25 mg capsule 25 mg PO BEDTIME triamcinolone acetonide 0.1 % cream 1 applic topical DAILY Qty: 453.6 0RF (DME) OneTouch Verio test strips Strip See Rx Instructions .Route Qty: 100 0RF Rx Instructions: As directed (DME) blood-glucose meter [OneTouch Verio Flex Start] Kit See Rx Instructions .Route Qty: 1 0RF Rx Instructions: As directed ([facility] [place] lancets [Technology KeiretsuTouch UltraSoft Lancets] Misc See Rx Instructions .Route Qty: 100 0RF Rx Instructions: As directed ([facility] [place] Dexcom G7 Rolfer Misc See Rx Instructions .Route Qty: 1 0RF Rx Instructions: As directed spironolactone 50 mg tablet 50 mg PO QAM Qty: 90 1RF magnesium oxide 200 mg magnesium tablet 200 mg PO DAILY@12 Qty: 90 1RF (DME) wheelchair See Rx Instructions .Route .MEDSUPPLY Qty: 1 0RF Rx Instructions: ABILIO - Lifetime. celecoxib 200 mg capsule 200 mg PO BID PRN (Reason: PAIN AND INFLAMMATION) Qty: 60 2RF gabapentin 800 mg tablet 800 mg PO TID Qty: 90 2RF atorvastatin 80 mg tablet See Rx Instructions .ROUTE .COMPLEX Qty: 90 1RF Dose Instruction: TAKE 1 TABLET BY MOUTH EVERY DAY Rx Instructions: TAKE 1 TABLET BY MOUTH EVERY DAY ([facility] [place] Dexcom G7 Sensor Device See Rx Instructions .ROUTE .COMPLEX Qty: 1 5RF Dose Instruction: USE DIRECTED Rx Instructions: USE DIRECTED citalopram 20 mg tablet See Rx Instructions .ROUTE .COMPLEX Qty: 30 5RF Dose Instruction: TAKE 1 TABLET BY MOUTH EVERY DAY Rx Instructions: TAKE 1 TABLET BY MOUTH EVERY DAY valsartan 80 mg tablet See Rx Instructions .ROUTE .COMPLEX Qty: 30 5RF Dose Instruction: TAKE 1 TABLET BY MOUTH AT BEDTIME Rx Instructions: TAKE 1 TABLET BY MOUTH AT BEDTIME albuterol sulfate 90 mcg/actuation HFA aerosol inhaler See Rx Instructions .ROUTE .COMPLEX Qty: 8.5 3RF Dose Instruction: INHALE TWO PUFFS EVERY 6 HOURS NEEDED FOR SHORTNESS OF BREATH or wheezing Rx Instructions: INHALE TWO PUFFS EVERY 6 HOURS NEEDED FOR SHORTNESS OF BREATH or wheezing Eliquis 5 mg tablet See Rx Instructions .ROUTE .COMPLEX Qty: 90 3RF Dose Instruction: TAKE 1 TABLET BY MOUTH TWICE DAILY Rx Instructions: TAKE 1 TABLET BY MOUTH TWICE DAILY bumetanide 2 mg tablet See Rx Instructions .ROUTE .COMPLEX Qty: 60 0RF Dose Instruction: TAKE 1 TABLET BY MOUTH EVERY DAY Rx Instructions: TAKE 1 TABLET BY MOUTH EVERY DAY sodium chloride 0.9 % solution for nebulization See Rx Instructions .ROUTE .COMPLEX Qty: 300 5RF Dose Instruction: inhale 2.5ml via nebulizer every SIX hours Rx Instructions: inhale 2.5ml via nebulizer every SIX hours potassium chloride 20 mEq tablet,ER particles/crystals See Rx Instructions .ROUTE .COMPLEX Qty: 30 0RF Dose Instruction: TAKE 1 TABLET BY MOUTH EVERY DAY at NOON Rx Instructions: TAKE 1 TABLET BY MOUTH EVERY DAY at NOON hydrocodone-acetaminophen 10-325 mg tablet 1 tab PO Q6H 30 Days Qty: 120 0RF baclofen 10 mg tablet See Rx Instructions .ROUTE .COMPLEX Qty: 90 2RF Dose Instruction: TAKE 1 TABLET BY MOUTH TWICE DAILY NEEDED FOR PAIN Rx Instructions: TAKE 1 TABLET BY MOUTH TWICE DAILY NEEDED FOR PAIN Trelegy Ellipta 100-62.5-25 mcg blister with device 1 inh inhalation DAILY Qty: 60 6RF cyclobenzaprine 10 mg tablet See Rx Instructions .ROUTE .COMPLEX Qty: 120 0RF Dose Instruction: TAKE 1 TABLET BY MOUTH EVERY 6 HOURS NEEDED FOR muscle SPASMS Rx Instructions: TAKE 1 TABLET BY MOUTH EVERY 6 HOURS NEEDED FOR muscle SPASMS montelukast 10 mg tablet See Rx Instructions .ROUTE .COMPLEX Qty: 90 1RF Dose Instruction: TAKE 1 TABLET BY MOUTH EVERY MORNING FOR breathing Rx Instructions: TAKE 1 TABLET BY MOUTH EVERY MORNING FOR breathing sulfamethoxazole-trimethoprim 800-160 mg tablet See Rx Instructions .ROUTE .COMPLEX Rx Instructions: TAKE 1 TABLET BY MOUTH DAILY ON WEDNESDAY, WEDNESDAY AND WEDNESDAY. sodium chloride 0.9 % solution for nebulization 2.5 ml inhalation Q6H PRN (Reason: Shortness Of Breath) ondansetron 4 mg tablet,disintegrating 4 mg PO Q8H PRN (Reason: Nausea) Discharge Orders: Discharge ED (Routine); Ordered 07/27/24 Ordered By: Crow Rivera Referrals: Pal Caballero DO [Primary Care Provider] - 1 week Patient Instructions: Opioid Safety, Pain Management Activity Restrictions/Additional Instructions: All your test came back negative for a source of your fever. Your x-ray showed you have extensive arthritis in your right shoulder. You have been prescribed Percocet in place of the hydrocodone you currently have. Please follow-up with your family practice physician within the next 7 to 10 days for further evaluation and possible referral to orthopedic surgery as needed. Coding Level of Care Code ED [employer] Supervisor for Alexandra Mojica
[2024-07-27 19:18] LABS: Basophils % 0.1 %; Hematocrit 32.7 % (36-47); Lymphocytes # 1.1 10^3/uL (0.8-4.8); Lymphocytes % 16.2 %; Mean Corpuscular HGB Conc 30.9 g/dL (30-55); Mean Corpuscular Hemoglobin 26.6 pg (27-33); Mean Corpuscular Volume 86.1 fl (85-98); Mean Platelet Volume 9.8 fL (7.4-10.4); Monocytes # 0.5 10^3/uL (0.2-0.9); Monocytes % 6.6 %; Neutrophils # 5.27 10^3/uL (1.8-7.7); Neutrophils % 76.7 %; Nucleated Red Blood Cells % 0 %; Platelet Count 254 10^3/cmm (157-399); Red Cell Distribution Width 14.4 % (12.1-15.1); White Blood Count 6.87 10^3/uL (3.29-11.43)
[2024-07-27 19:34] VITALS: BP 152/89; PULSE 87; O2SAT 98
[2024-07-27 19:37] LABS: Alanine Aminotransferase 10 U/L (0-33); Albumin Level 4.1 g/dL (3.5-5.2); Alkaline Phosphatase 153 U/L (35-105); Anion Gap 13.5 (5-19); Aspartate Amino Transferase 11 U/L (0-32); Blood Urea Nitrogen 9 mg/dL (6-20); Calcium 9.2 mg/dL (8.5-10.5); Carbon Dioxide 30 mmol/L (22-29); Chloride 98 mmol/L (98-107); Creatinine Clr Calc Pharmacy 316.4028; Globulin 2.9 g/dL (1.3-4.6); Glomerular Filtration Rate 128.1 mL/min (90-130); Glucose 124 mg/dL (65-115); Osmolality Calculated 284 mOsm/kg (285-295); Potassium 4.5 mmol/L (3.5-5.1); Sodium 137 mmol/L (136-145); Total Bilirubin 0.6 mg/dL (0.15-1.2)
[2024-07-27 19:44] LABS: Procalcitonin 0.04 ng/mL (0-0.5)
[2024-07-27 20:10] LABS: Covid PCR NEGATIVE (Negative); Influenza A NEGATIVE (Negative); Influenza B NEGATIVE (Negative); Respiratory Syncytial Virus Ce NEGATIVE (Negative)
[2024-07-27 20:53] LABS: Bilirubin Urine Negative (Negative); Blood Urine Negative (Negative); Glucose Urine UA Negative (Normal); Ketones Urine Negative (Negative); Leukocyte Esterase Urine Negative (Negative); Nitrate Urine Negative (Negative); Protein Urine Negative (Negative); Specific Gravity, Urine 1.006 (1.005-1.030); Urine Appearance Clear (CLEAR); Urine Color Yellow (Yellow)
[2024-07-27 20:56] LABS: Add Urine Microscopic? YES; Bacteria Urine None Seen /hpf; RBC Urine 0-2 /hpf (0-2); Squamous Epithelial Cell Urine 0-5 /hpf (0-5); WBC Urine 0-5 /hpf (0-5)
[2024-07-27 21:04] VITALS: BP 122/68; PULSE 90; RESP 19; O2SAT 97
[2024-07-27] MEDS: oxyCODONE-APAP 10-325 mg Tablet 1 TAB PO (21:04)
[2024-07-27 23:23] VITALS: BP 122/68; PULSE 89; O2SAT 89
== END 2024-07-27 23:25 | disposition home or self-care (01) ==
PROVIDERS: Emergency Provider Emergency Medicine; PCP Family Medicine
DX: R50.9 Fever, unspecified (principal); M25.511 Pain in right shoulder; Z79.84 Long term (current) use of oral hypoglycemic drugs; Z79.01 Long term (current) use of anticoagulants; Z11.52 Encounter for screening for COVID-19; E11.22 Type 2 diabetes mellitus with diabetic chronic kidney disease; I13.0 Hypertensive heart and chronic kidney disease with heart failure and stage 1 through stage 4 chronic kidney disease, or unspecified chronic kidney disease; N18.9 Chronic kidney disease, unspecified; I50.9 Heart failure, unspecified
CPT/HCPCS: 0241U; 36415; 71045; 73030; 80053; 81001; 84145; 85025; 99284

== ENCOUNTER 2024-10-18 15:43 | Emergency (ER) | payer MEDICARE, SELFPAY ==
[2024-10-18 15:49] VITALS: BP 147/72; PULSE 79; RESP 24; TEMP 36.3; O2SAT 98; BMI 94.5
--- NOTE | 2024-10-18 16:00 | W.ED.FEMALGU ---
HPI - Female Genitourinary General: Chief complaint: Urogenital-Female Stated complaint: UTI Time Seen by Provider: 10/18/24 15:45 Source: patient and EMS Mode of arrival: EMS Limitations: no limitations History of Present Illness: 54-year-old female who states the last 2 days she has been having some dysuria and noticed some blood in her urine as well. She has had fevers at home she is concerned she may have a UTI. She denies abdominal pain denies any vomiting denies any diarrhea she denies any worse improving factors. Associated symptoms: Deny abdominal pain, headache(s) or nausea Related Data Home Medications ?Medication ?Instructions ?Recorded ?Confirmed albuterol sulfate 2.5 mg/3 mL 2.5 mg continuous nebulization Q6H 10/18/24 10/18/24 (0.083 %) solution for nebulization albuterol sulfate 90 mcg/actuation 2 puff inhalation Q6H 10/18/24 10/18/24 aerosol inhaler apixaban 5 mg tablet (Eliquis) 5 mg PO BID 10/18/24 10/18/24 atorvastatin 80 mg tablet 80 mg PO DAILY 10/18/24 10/18/24 baclofen 10 mg tablet 10 mg PO BID 10/18/24 10/18/24 bumetanide 2 mg tablet 2 mg PO DAILY 10/18/24 10/18/24 celecoxib 200 mg capsule 200 mg PO BID 10/18/24 10/18/24 citalopram 20 mg tablet 20 mg PO DAILY 10/18/24 10/18/24 cyclobenzaprine 10 mg tablet 10 mg PO Q6H 10/18/24 10/18/24 gabapentin 800 mg tablet 800 mg PO TID 10/18/24 10/18/24 montelukast 10 mg tablet 10 mg PO QAM 10/18/24 10/18/24 potassium chloride 20 mEq 20 meq PO DAILY 10/18/24 10/18/24 tablet,extended release sodium chloride 0.9 % for 2.5 ml inhalation Q6H 10/18/24 10/18/24 nebulization spironolactone 50 mg tablet 50 mg PO QAM 10/18/24 10/18/24 valsartan 80 mg tablet 80 mg PO QPM 10/18/24 10/18/24 Previous Rx's ?Medication ?Instructions ?Recorded metformin 750 mg tablet,extended 750 mg PO DAILY #90 tabs 11/17/23 release 24 hr benralizumab 30 mg/mL subcutaneous 30 mg SUBCUT .Q8 weeks #1 mL 12/06/23 auto-injector (Fasenra Pen) metoprolol tartrate 75 mg tablet 75 mg PO BID #180 tabs 07/03/24 fluticasone fur. 100 mcg-umeclid 1 inh inhalation DAILY #60 ea 07/17/24 62.5 mcg-vilant 25 mcg inhalat.powder (Trelegy Ellipta) oxycodone-acetaminophen 10 mg-325 1 tab PO Q8H PRN pain 30 days #90 09/28/24 mg tablet (Percocet) tabs cephalexin 500 mg capsule 500 mg PO TID 7 days #21 caps 10/18/24 Allergies Allergy/AdvReac Type Severity Reaction Status Date / Time adhesive tape Allergy ALGY-Bliste Verified 04/12/24 09:09 r latex Allergy ALGY-Bliste Verified 04/12/24 09:09 r Penicillins Allergy ALGY-Hives Verified 04/12/24 09:09 Review of Systems Const: Denies: fever(s), chills, body aches or change in appetite ENMT: Denies: throat pain or dental pain Card: Denies: chest pain Resp: Denies: dyspnea GI: Denies: abdominal pain, nausea, vomiting or diarrhea : Reports: dysuria Musc: Denies: neck pain or back pain Skin/Breast: Denies: rash Neuro: Denies: headache(s) PFSH ED PFSH: Medical History Right shoulder pain Chest wall pain, chronic Atrial fibrillation Atypical chest pain Steroid dependence Obstructive sleep apnea Solitary pulmonary nodule Chest pain Obesity hypoventilation syndrome CHF (congestive heart failure) Morbid obesity with BMI of 70 and over, adult Severe persistent asthma dependent on systemic steroids Diabetic retinopathy Depression Right bundle branch block Infected sebaceous cyst of skin Chronic anticoagulation Mixed dyslipidemia Essential hypertension Hemangioma Left shoulder CKD (chronic kidney disease) Diabetes mellitus type 2, uncontrolled, with complications Surgical History History of hysterectomy S/P cholecystectomy Family History Mother Myocardial infarct Stroke Hypertension Father Myocardial infarct Social History Smoking and tobacco/nicotine status: never used tobacco/nicotine Alcohol intake: never Substance/Drug Use: never Female Reproductive History: Spontaneous abortions: No Physical Exam Const: COMMON NORMALS: patient oriented x3 HENMT: COMMON NORMALS: normocephalic and atraumatic HEAD & SCALP: normocephalic and atraumatic Eye: COMMON NORMALS: Equal, round and reactive pupils present and EOMs intact bilaterally PUPIL: Yes Equal, round and reactive pupils present Neck/C-Spine: COMMON NORMALS: full ROM and supple Chest: COMMONS NORMALS: normal inspection of the chest and normal palpation of entire chest wall Resp: COMMON NORMALS: normal respiratory effort, No retractions, No use of accessory muscles and clear to auscultation bilaterally AUSCULTATION: clear to auscultation bilaterally Cardio: COMMON NORMALS: regular rate, regular rhythm and No murmurs present (Cardio) RATE: regular rate RHYTHM: regular rhythm GI: COMMON NORMALS: Normal to inspection, nondistended, normoactive bowel sounds present, Soft to palpation, non-tender and no masses PALPATION: Yes Soft to palpation Extremity: COMMON NORMALS: normal to inspection and full ROM Neuro: COMMON NORMALS: patient oriented x3, moves all extremities and no focal motor deficits Psych: COMMON NORMALS: mental status grossly normal, Normal thought process present and cooperative THOUGHT PROCESS: Normal thought process present Skin: COMMON NORMALS: no rashes or lesions noted and no wounds GENERAL SKIN EXAM: no rashes or lesions noted Course Vital Signs: Vital signs: Vital Signs Temperature 97.4 F L 10/18/24 15:49 Pulse Rate 79 10/18/24 15:49 Respiratory Rate 24 H 10/18/24 15:49 Blood Pressure 147/72 10/18/24 15:49 Pulse Oximetry 98 10/18/24 15:49 Oxygen Delivery Me thod Nasal Cannula 10/18/24 15:49 Oxygen Flow Rate 6 10/18/24 15:49 MDM - Female Medical Decision Making Patient presents here with UTI she is otherwise well-appearing here no signs of sepsis and given IV dose antibiotics will prescribe antibiotics for home she stable for discharge follow-up with PCP return if worsening. Lab Data I reviewed the patient's lab results. 10/18/24 16:42 10/18/24 16:42 Laboratory Results WBC 6.39 10^3/uL (3.29-11.43) 10/18/24 16:42 RBC 4.25 10^6/uL (3.85-5.65) 10/18/24 16:42 Hgb 11.50 g/dL (11.27-16.99) 10/18/24 16:42 Hct 36.6 % (36-47) 10/18/24 16:42 MCV 86.1 fl (85-98) 10/18/24 16:42 MCH 27.1 pg (27-33) 10/18/24 16:42 MCHC 31.4 g/dL (30-55) 10/18/24 16:42 RDW 15.9 % (12.1-15.1) H 10/18/24 16:42 Plt Count 221 10^3/cmm (157-399) 10/18/24 16:42 MPV 9.9 fL (7.4-10.4) 10/18/24 16:42 Neut % (Auto) 78.2 % 10/18/24 16:42 Lymph % (Auto) 15.3 % 10/18/24 16:42 [place] % (Auto) 6.3 % 10/18/24 16:42 Eos % (Auto) 0.0 % 10/18/24 16:42 Baso % (Auto) 0.0 % 10/18/24 16: Neut # (Auto) 5.00 10^3/uL (1.8-7.7) 10/18/24 16:42 Lymph # (Auto) 1.0 10^3/uL (0.8-4.8) 10/18/24 16:42 [place] # (Auto) 0.4 10^3/uL (0.2-0.9) 10/18/24 16:42 Eos # (Auto) 0.0 10^3/uL (0.0-0.8) 10/18/24 16:42 Baso # (Auto) 0.0 10^3/uL (0.0-0.1) 10/18/24 16:42 Nucleated RBC % (auto) 0 % 10/18/24 16:42 Nucleated RBCs # 0.0 /100WBC 10/18/24 16:42 Sodium 141 mmol/L (136-145) 10/18/24 16:42 Potassium 4.6 mmol/L (3.5-5.1) 10/18/24 16:42 Chloride 103 mmol/L (98-107) 10/18/24 16:42 Carbon Dioxide 27 mmol/L (22-29) 10/18/24 16:42 Anion Gap 15.6 (5-19) 10/18/24 16:42 BUN 9 mg/dL (6-20) 10/18/24 16:42 Creatinine 0.4 mg/dL (0.5-0.9) L 10/18/24 16:42 GFR Calculation 165.7 mL/min (90-130) H 10/18/24 16:42 Glucose 107 mg/dL (65-115) 10/18/24 16:42 Calculated Osmolality 291 mOsm/kg (285-295) 10/18/24 16:42 Calcium 9.9 mg/dL (8.5-10.5) 10/18/24 16:42 Total Bilirubin 0.6 mg/dL (0.15-1.2) 10/18/24 16:42 AST 15 U/L (0-32) 10/18/24 16:42 ALT 14 U/L (0-33) 10/18/24 16:42 Alkaline Phosphatase 164 U/L (35-105) H 10/18/24 16:42 Total Protein 7.4 g/dL (6.6-8.7) 10/18/24 16:42 Albumin 4.1 g/dL (3.5-5.2) 10/18/24 16:42 Globulin 3.3 g/dL (1.3-4.6) 10/18/24 16:42 Urine Color Dark yellow (Yellow) A 10/18/24 16:33 Urine Appearance Clear (CLEAR) 10/18/24 16:33 Urine pH 6.5 (5-7) 10/18/24 16:33 Ur Specific [place] 1.008 (1.005-1.030) 10/18/24 16:33 Urine Protein Negative (Negative) 10/18/24 16:33 Urine Glucose (UA) Negative (Normal) 10/18/24 16:33 Urine Ketones Negative (Negative) 10/18/24 16:33 Urine Blood Trace (Negative) A 10/18/24 16:33 Urine Nitrate Positive (Negative) A 10/18/24 16:33 Urine Bilirubin Negative (Negative) 10/18/24 16:33 Urine Urobilinogen 1.0 mg/dL (Negative) 10/18/24 16:33 Ur Leukocyte Esterase Trace (Negative) A 10/18/24 16:33 Urine RBC 0-2 /hpf (0-2) 10/18/24 16:33 Urine WBC 21-50 /hpf (0-5) H 10/18/24 16:33 Ur Squamous Epith Cells 0-5 /hpf (0-5) 10/18/24 16:33 Amorphous Sediment Not Reportable 10/18/24 16:33 Urine Bacteria 2+ /hpf (NONE) H 10/18/24 16:33 Hyaline Casts 0.40 /lpf 10/18/24 16:33 No radiology studies performed this visit Discharge Plan Discharge Patient Disposition: Home Clinical Impression: Acute cystitis Condition: Stable Prescriptions: New cephalexin 500 mg capsule 500 mg PO TID 7 Days Qty: 21 0RF No Action Fasenra Pen 30 mg/mL auto-injector 30 mg SUBCUT .Q8 weeks Qty: 1 6RF Rx Instructions: 30 mg once every 8 weeks metformin 750 mg tablet extended release 24 hr 750 mg PO DAILY Qty: 90 3RF metoprolol tartrate 75 mg tablet 75 mg PO BID Qty: 180 3RF Trelegy Ellipta 100-62.5-25 mcg blister with device 1 inh inhalation DAILY Qty: 60 6RF oxycodone-acetaminophen [Percocet] 10-325 mg tablet 1 tab PO Q8H PRN (Reason: pain) 30 Days Qty: 90 0RF albuterol sulfate 90 mcg/actuation HFA aerosol inhaler 2 puff inhalation Q6H celecoxib 200 mg capsule 200 mg PO BID Rx Instructions: take 1 capsule BY MOUTH TWICE DAILY NEEDED FOR PAIN and inflammation cyclobenzaprine 10 mg tablet 10 mg PO Q6H Rx Instructions: TAKE 1 TABLET BY MOUTH EVERY 6 HOURS NEEDED FOR muscle SPASMS atorvastatin 80 mg tablet 80 mg PO DAILY Rx Instructions: TAKE 1 TABLET BY MOUTH EVERY DAY bumetanide 2 mg tablet 2 mg PO DAILY Rx Instructions: TAKE 1 TABLET BY MOUTH EVERY DAY albuterol sulfate 2.5 mg /3 mL (0.083 %) solution for nebulization 2.5 mg continuous nebulization Q6H Rx Instructions: use 1 vial in nebulizer EVERY 6 HOURS NEEDED FOR SHORTNESS OF BREATH and wheezing valsartan 80 mg tablet 80 mg PO QPM Rx Instructions: TAKE 1 TABLET BY MOUTH AT BEDTIME citalopram 20 mg tablet 20 mg PO DAILY Rx Instructions: TAKE 1 TABLET BY MOUTH EVERY DAY gabapentin 800 mg tablet 800 mg PO TID Rx Instructions: TAKE 1 TABLET BY MOUTH THREE TIMES DAILY baclofen 10 mg tablet 10 mg PO BID Rx Instructions: TAKE 1 TABLET BY MOUTH TWICE DAILY NEEDED FOR PAIN montelukast 10 mg tablet 10 mg PO QAM Rx Instructions: TAKE 1 TABLET BY MOUTH EVERY MORNING FOR breathing sodium chloride 0.9 % solution for nebulization 2.5 ml inhalation Q6H Rx Instructions: inhale 2.5ml via nebulizer every SIX hours spironolactone 50 mg tablet 50 mg PO QAM Rx Instructions: TAKE 1 TABLET BY MOUTH EVERY MORNING Eliquis 5 mg tablet 5 mg PO BID Rx Instructions: TAKE 1 TABLET BY MOUTH TWICE DAILY potassium chloride 20 mEq tablet extended release 20 meq PO DAILY Rx Instructions: TAKE 1 TABLET BY MOUTH EVERY DAY at NOON Discharge Orders: Discharge ED (Routine); Ordered 10/18/24 Ordered By: Merlyn Street Referrals: Pal Caballero DO [Primary Care Provider] - 4-7 days Discharge Diet: Advance as tolerated Discharge Activity: Resume usual activity Patient Instructions: Urinary Tract Infection in Women (ED) Print Language: Cymro Coding Level of Care Code ED Ice Cream Mixer for Alexandra Mojica
[2024-10-18 16:52] LABS: Hematocrit 36.6 % (36-47); Lymphocytes % 15.3 %; Mean Corpuscular HGB Conc 31.4 g/dL (30-55); Mean Corpuscular Hemoglobin 27.1 pg (27-33); Mean Corpuscular Volume 86.1 fl (85-98); Mean Platelet Volume 9.9 fL (7.4-10.4); Monocytes # 0.4 10^3/uL (0.2-0.9); Monocytes % 6.3 %; Neutrophils % 78.2 %; Nucleated Red Blood Cells % 0 %; Platelet Count 221 10^3/cmm (157-399); Red Blood Count 4.25 10^6/uL (3.85-5.65); Red Cell Distribution Width 15.9 % (12.1-15.1); White Blood Count 6.39 10^3/uL (3.29-11.43)
[2024-10-18 17:30] LABS: Alanine Aminotransferase 14 U/L (0-33); Albumin Level 4.1 g/dL (3.5-5.2); Alkaline Phosphatase 164 U/L (35-105); Blood Urea Nitrogen 9 mg/dL (6-20); Calcium 9.9 mg/dL (8.5-10.5); Carbon Dioxide 27 mmol/L (22-29); Chloride 103 mmol/L (98-107); Creatinine Clr Calc Pharmacy 390.9518; Globulin 3.3 g/dL (1.3-4.6); Glomerular Filtration Rate 165.7 mL/min (90-130); Glucose 107 mg/dL (65-115); Osmolality Calculated 291 mOsm/kg (285-295); Sodium 141 mmol/L (136-145); Total Bilirubin 0.6 mg/dL (0.15-1.2); Total Protein 7.4 g/dL (6.6-8.7)
[2024-10-18 17:35] LABS: Anion Gap 15.6 (5-19); Aspartate Amino Transferase 15 U/L (0-32); Potassium 4.6 mmol/L (3.5-5.1)
[2024-10-18 17:37] LABS: Bilirubin Urine Negative (Negative); Blood Urine Trace (Negative); Glucose Urine UA Negative (Normal); Ketones Urine Negative (Negative); Leukocyte Esterase Urine Trace (Negative); Nitrate Urine Positive (Negative); Protein Urine Negative (Negative); Specific Gravity, Urine 1.008 (1.005-1.030); Urine Appearance Clear (CLEAR); Urine Color Dark Yellow (Yellow); pH Urine 6.5 (5-7)
[2024-10-18 17:42] LABS: Add Urine Microscopic? YES; Bacteria Urine 2+ /hpf; RBC Urine 0-2 /hpf (0-2); Squamous Epithelial Cell Urine 0-5 /hpf (0-5); WBC Urine 21-50 /hpf (0-5)
[2024-10-18 17:48] LABS: Add Urine Culture? Yes
[2024-10-18] MEDS: cefTRIAXone 1,000 mg SDV 1000 MG IVP (18:52)
[2024-10-18 18:55] VITALS: BP 148/86; PULSE 80; O2SAT 100
[2024-10-18] MEDS: HYDROmorphone 1 mg/mL INJ 1 mL IVP (20:15)
[2024-10-18 21:00] VITALS: BP 147/72; PULSE 92; RESP 20; O2SAT 99
[2024-10-18 21:23] VITALS: BP 147/72; PULSE 925; O2SAT 99
== END 2024-10-18 21:00 | disposition home or self-care (01) ==
PROVIDERS: Emergency Provider Emergency Medicine; PCP Family Medicine
DX: N30.00 Acute cystitis without hematuria (principal); Z79.4 Long term (current) use of insulin; Z79.01 Long term (current) use of anticoagulants; E11.22 Type 2 diabetes mellitus with diabetic chronic kidney disease; I13.0 Hypertensive heart and chronic kidney disease with heart failure and stage 1 through stage 4 chronic kidney disease, or unspecified chronic kidney disease; E11.319 Type 2 diabetes mellitus with unspecified diabetic retinopathy without macular edema; N18.9 Chronic kidney disease, unspecified; I50.9 Heart failure, unspecified
CPT/HCPCS: 51702; 80053; 81001; 85025; 87077; 87086; 87186; 96374; 96375; 99284; J0696; J1171

== ENCOUNTER → 2025-02-19 08:50 | Outpatient (BNVA) | payer MEDICARE, SELFPAY | PROVIDERS: PCP Family Medicine; Visit Provider Family Medicine | DX: F32.A Depression, unspecified (principal); I10 Essential (primary) hypertension; I50.42 Chronic combined systolic (congestive) and diastolic (congestive) heart failure; I48.19 Other persistent atrial fibrillation; E78.2 Mixed hyperlipidemia; E66.01 Morbid (severe) obesity due to excess calories; Z68.45 Body mass index [BMI] 70 or greater, adult; N18.9 Chronic kidney disease, unspecified; J45.50 Severe persistent asthma, uncomplicated; G47.33 Obstructive sleep apnea (adult) (pediatric); R60.9 Edema, unspecified; R79.0 Abnormal level of blood mineral; E87.6 Hypokalemia; T50.2X5A Adverse effect of carbonic-anhydrase inhibitors, benzothiadiazides and other diuretics, initial encounter; E11.319 Type 2 diabetes mellitus with unspecified diabetic retinopathy without macular edema; E55.9 Vitamin D deficiency, unspecified; R79.89 Other specified abnormal findings of blood chemistry | CPT/HCPCS: 80053; 80061; 82306; 82533; 82607; 82746; 83036; 83735; 84439; 84443; 85025 ==

== ENCOUNTER 2025-07-31 15:36 | Inpatient (IN) | payer MEDICARE, SELFPAY ==
[2025-07-31] VITALS (28 sets, daily range): BP systolic 80–146; BP diastolic 54–91; PULSE 77–98; RESP 18–30; TEMP 36.5–36.9; O2SAT 90–100; BMI 94.5; BMI 87.7
[2025-07-31 16:12] LABS: Glucose Urine UA Negative (Normal); Nitrate Urine Negative (Negative); Specific Gravity, Urine 1.020 (1.005-1.030)
--- NOTE | 2025-07-31 16:15 | ED_ITS ---
HPI - Female Genitourinary 2 General: Chief complaint: Urogenital-Female Stated complaint: Pain with urinating History of Present Illness: 55-year-old morbidly obese female [facility] complaining she is having abdominal pain that radiates into her back flulike symptoms and pain with urination she has also been increasingly short of breath. Patient is chronically on 7 L at baseline by nasal cannula due to obesity hypoventilation. (BMI 94.5) she denies any chest pain she has had a productive cough no diarrhea. In talking to her while we are doing her history she is satting 95 to 98% but is conversationally dyspneic. Associated symptoms: Reports abdominal pain Related Data Home Medications ?Medication ?Instructions ?Recorded ?Confirmed albuterol sulfate 2.5 mg/3 mL 2.5 mg continuous nebuli zation Q6H 10/18/24 07/31/25 (0.083 %) solution for nebulization diphenhydramine HCl 25 mg capsule 25 mg PO BEDTIME 08/01/25 (Benadryl) guaifenesin 600 mg tablet, 600 mg PO BID PRN Congestio n 08/01/25 08/01/25 extended release 12 hr (Mucinex) Previous Rx's ?Medication ?Instructions ?Recorded albuterol sulfate 90 mcg/actuation See Rx Instructions .Route 12/05/24 aerosol inhaler .COMPLEX #8.5 grams lancets #200 ea 01/03/25 benralizumab 30 mg/mL subcutaneous 30 mg SUBCUT .Q8 we eks #1 mL 01/08/25 auto-injector (Fasenra Pen) blood sugar diagnostic (Contour #100 ea 04/02/25 Plus Test Strip) blood-glucose meter (Contour Plus #1 ea 04/02/25 Blue Meter) atorvastatin 80 mg tablet See Rx Instructions .Route 0 05/10/25 .COMPLEX #90 tabs citalopram 20 mg tablet See Rx Instructions .Route 0 05/10/25 .COMPLEX #30 tabs montelukast 10 mg tablet See Rx Instructions .Route 0 05/10/25 .COMPLEX #90 tabs apixaban 5 mg tablet (Eliquis) See Rx Instructions .Ro [facility] [place] 05/23/25 .COMPLEX #90 tabs fluticasone fur. 100 mcg-umeclid See Rx Instructions . Route 05/24/25 62.5 mcg-vilant 25 mcg .COMPLEX #60 ea inhalat.powder (Trelegy Ellipta) metoprolol tartrate 75 mg tablet See Rx Instructions . Route 06/13/25 .COMPLEX #180 tabs bumetanide 2 mg tablet See Rx Instructions .Route 1 .COMPLEX #60 tabs celecoxib 200 mg capsule See Rx Instructions .Route 1 .COMPLEX #60 caps gabapentin 800 mg tablet See Rx Instructions .Route 1 .COMPLEX #90 tabs potassium chloride 20 mEq See Rx Instructions .Route 1 tablet,extended release .COMPLEX #30 tabs cyclobenzaprine 10 mg tablet See Rx Instructions .Rout e 07/23/25 .COMPLEX #120 tabs oxycodone-acetaminophen 10 mg-325 1 tab PO Q8H PRN matt n 30 days #90 07/23/25 mg tablet (Percocet) tabs baclofen 10 mg tablet See Rx Instructions .Route 1 09/25/24 .COMPLEX #90 tabs valsartan 80 mg tablet See Rx Instructions .Route 1 09/26/24 .COMPLEX #30 tabs spironolactone 50 mg tablet See Rx Instructions .Route 08/02/25 .COMPLEX #90 tabs Allergies Allergy/AdvReac Type Severity Reaction Status Date / Time adhesive tape Allergy ALGY-Bliste Verified 02/19/25 10:13 r latex Allergy ALGY-Bliste Verified 02/19/25 10:13 r Penicillins Allergy ALGY-Hives Verified 02/19/25 10:13 Review of Systems 2 Const: Reports: fever(s); Denies: chills Card: Denies: chest pain Resp: Reports: dyspnea, productive cough and chest congestion GI: Reports: abdominal pain : Reports: dysuria and urinary frequency; Denies: urinary urgency Musc: Denies: neck pain or back pain Skin/Breast: Denies: rash PFSH ED 2 PFSH: Medical History Right shoulder pain Chest wall pain, chronic Atrial fibrillation Atypical chest pain Steroid dependence Obstructive sleep apnea Solitary pulmonary nodule Chest pain Obesity hypoventilation syndrome CHF (congestive heart failure) Morbid obesity with BMI of 70 and over, adult Severe persistent asthma dependent on systemic steroids Diabetic retinopathy Depression Right bundle branch block Infected sebaceous cyst of skin Chronic anticoagulation Mixed dyslipidemia Essential hypertension Hemangioma Left shoulder CKD (chronic kidney disease) Diabetes mellitus type 2, uncontrolled, with complications Surgical History History of hysterectomy S/P cholecystectomy Family History Mother Myocardial infarct Stroke Hypertension Father Myocardial infarct Social History Smoking and tobacco/nicotine status: never used tobacco/nicotine Alcohol intake: never Substance/Drug Use: never Female Reproductive History: Spontaneous abortions: No Physical Exam 2 Const: GENERAL APPEARANCE: cooperative ORIENTATION/CONSCIOUSNESS: Yes awake HENMT: COMMON NORMALS: normocephalic, atraumatic and hearing grossly normal bilaterally HEAD & SCALP: normocephalic and atraumatic Resp: COMMON NORMALS: normal respiratory effort, No retractions and No use of accessory muscles EFFORT & INSPECTION: Yes tachypneic AUSCULTATION: r [place] and wheezes Cardio: COMMON NORMALS: regular rate, regular rhythm and No murmurs present (Cardio) RATE: regular rate RHYTHM: regular rhythm GI: COMMON NORMALS: Soft to palpation and No hepatosplenomegaly present A USCULTATION: Yes normoactive bowel sounds PALPATION: Yes Soft to palpation, No Tenderness to palpation present (GI), No Guarding due to palpation present (GI) and Yes No hepatosplenomegaly present Extremity: COMMON NORMALS: normal to inspection, capillary refill normal, no clubbing, cyanosis or edema, no calf tenderness and no pedal edema Skin: COMMON NORMALS: no rashes or lesions noted GENERAL SKIN EXAM: no rashes or lesions noted Course 2 Vital Signs: Vital signs: Vital Signs Temperature 97.6 F 08/02/25 16:00 Pulse Rate 110 H 08/02/25 16:00 Respiratory Rate 33 H 08/02/25 16:00 Blood Pressure 145/77 08/02/25 16:00 Pulse Oximetry 96 08/02/25 16:00 Oxygen Delivery Me thod BiPAP 08/02/25 16:00 Oxygen Flow Rate 6 08/02/25 15:28 Fraction of Inspir ed Oxygen 50 07/31/25 20:56 MDM - Female Medical Decision Making No leukocytosis liver patient does have significant cystitis as well as right lower lobe pneumonia with some tachypnea. She was hypotensive on arrival. Renal function is normal carbon oxide 30. Blood gases pending. She has been started on meropenem previous urine culture this year showed significant resistance. Discussed with hospitalist orders written for admission. Medical Records I reviewed the patient's medical records. Lab Data I reviewed the patient's lab results. 08/02/25 04:07 08/02/25 04:07 Radiology Impressions Chest X-Ray 07/31/25 16:21 IMPRESSION: Mild stable cardiomegaly with findings suspicious for interstitial pulmonary edema. Please correlate clinically. Evaluation is limited by overlying soft tissues. Renal Ultrasound 07/31/25 17:28 IMPRESSION: Normal renal ultrasound. Abdomen/Pelvis CT 07/31/25 17:32 IMPRESSION: 1. Markedly limited study due to streak artifact related to the patient's large body habitus. 2. Right renal nephrolith measuring 6 mm. No other renal or ureteral calculi are detected, however evaluation is limited. No definite hydronephrosis is appreciated, however evaluation is limited. 3. Left paramidline ventral abdominal wall hernia which appears to contain fat and nondilated bowel loops. No significant associated bowel obstruction appreciated. 4. Hepatomegaly with diffuse fatty infiltration. 5. Patchy bibasilar atelectasis. 6. Noncalcified round 20 x 16 mm nodule in the posterior left lower lobe, slightly increased in size since June 30, 2022 (previously measuring 14 x 11 mm). Neoplasm cannot be excluded. PET/CT may be helpful for further evaluation. 7. Mild compression deformities involving the lumbar and visualized lower thoracic vertebra, age indeterminate. Laboratory Results WBC 6.67 10^3/uL (3.29-11.43) 07/31/25 16:27 RBC 3.58 10^6/uL (3.85-5.65) L 07/31/25 16:27 Hgb 10.80 g/dL (11.27-16.99) L 07/31/25 16:27 Hct 32.9 % (36-47) L 07/31/25 16:27 MCV 91.9 fl (85-98) 07/31/25 16: MCH 30.2 pg (27-33) 07/31/25 16:27 MCHC 32.8 g/dL (30-55) 07/31/25 16: RDW 13.5 % (12.1-15.1) 07/31/25 16: Plt Count 131 10^3/cmm (157-399) L 07/31/25 16: MPV 9.7 fL (7.4-10.4) 07/31/25 16: Neut % (Auto) 79.4 % 07/31/25 16:27 Lymph % (Auto) 9.9 % 07/31/25 16:27 [place] % (Auto) 9.9 % 07/31/25 16:27 Eos % (Auto) 0.0 % 07/31/25 16: Baso % (Auto) 0.1 % 07/31/25 16: Neut # (Auto) 5.29 10^3/uL (1.8-7.7) 07/31/25 16: Lymph # (Auto) 0.7 10^3/uL (0.8-4.8) L 07/31/25 16:27 [place] # (Auto) 0.7 10^3/uL (0.2-0.9) 07/31/25 16: Eos # (Auto) 0.0 10^3/uL (0.0-0.8) 07/31/25 16:27 Baso # (Auto) 0.0 10^3/uL (0.0-0.1) 07/31/25 16: Nucleated RBC % (auto) 0 % 07/31/25 16: Nucleated RBCs # 0.0 /100WBC 07/31/25 16:27 Specimen Type Arterial 07/31/25 17:06 Sample Site Radial, left 07/31/25 17:06 ABG pH 7.42 (7.35-7.45) 07/31/25 17:06 ABG pCO2 44.2 mmHg (35-45) 07/31/25 17:06 ABG pO2 101.0 mmHg (80.0-100.0) H 07/31/25 17:06 ABG HCO3 28.4 mmol/L (22-26) H 07/31/25 17:06 ABG O2 Saturation 98.9 07/31/25 17:06 ABG Base Excess 3.3 mmol/L (-2.0-2.0) H 07/31/25 17:06 [place] Test Pos 07/31/25 17:06 A-a O2 Gradient Not Reportable 07/31/25 17:06 Hematocrit 34.3 % (37-47) L 07/31/25 17:06 Hgb O2 Saturation 97.0 % (95-100) 07/31/25 17:06 Carboxyhemoglobin 2.0 %THgb (0.4-20.1) 07/31/25 17:06 Methemoglobin 0.0 % (0.4-1.5) L 07/31/25 17:06 Total Hemoglobin 11.2 g/dL (12-16) L 07/31/25 17:06 Sodium 135.0 mmol/L (131-143) 07/31/25 17:06 Potassium 3.8 mmol/L (3.5-5.0) 07/31/25 17:06 Glucose 175.0 mg/dL (70-115) H 07/31/25 17:06 Ionized Calcium 1.2 mmol/L (1.1-1.4) 07/31/25 17:06 O2 Delivery Device Nc 07/31/25 17:06 O2 Liters/Min 7.0 % 07/31/25 17:06 [employer] Firm Accounts Manager ID [place] 07/31/25 17:06 Sodium 133 mmol/L (136-145) L 07/31/25 16:27 Potassium 3.9 mmol/L (3.5-5.1) 07/31/25 16:27 Chloride 98 mmol/L (98-107) 07/31/25 16:27 Carbon Dioxide 30 mmol/L (22-29) H 07/31/25 16:27 Anion Gap 8.9 (5-19) 07/31/25 16:27 BUN 14 mg/dL (6-20) 07/31/25 16:27 Creatinine 0.8 mg/dL (0.5-0.9) 07/31/25 16:27 GFR Calculation 74.2 mL/min (90-130) L 07/31/25 16:27 Glucose 186 mg/dL (65-115) H 07/31/25 16:27 Estimat Average Glucose 120 07/31/25 16:27 Hemoglobin A1c 5.8 % (4.0-6.0) 07/31/25 16: Calculated Osmolality 281 mOsm/kg (285-295) L 07/31/25 16: Lactic Acid 1.1 mmol/L (0.5-2.2) 07/31/25 16: Calcium 8.7 mg/dL (8.5-10.5) 07/31/25 16: Troponin T Baseline 11 ng/L (0-10) H 07/31/25 16: C-Reactive Protein 150.0 mg/L (0.0-4.9) H 07/31/25 16: NT-Pro-B Natriuret Pep 516 pg/mL (0-125) H 07/31/25 16: Triglycerides 43 mg/dL (0-150) 07/31/25: Cholesterol 79 mg/dL (0-200) 07/31/25 16: LDL Cholesterol, Calc 32 mg/dL (50-129) L 07/31/25: HDL Cholesterol 38 mg/dL (60-100) L 07/31/25 16: LDL/HDL Ratio 0.84 RATIO (0.00-3.22) 07/31/25 16: Cholesterol/HDL Ratio 2.08 mg/dL (0.0-4.40) 07/31/25 16: Procalcitonin 1.09 ng/mL (0-0.5) H 07/31/25 16: TSH 3.11 uIU/mL (0.27-4.20) 07/31/25 16: Urine Color Dark yellow (Yellow) A 07/31/25 15:50 Urine Appearance Turbid (CLEAR) A 07/31/25 15:50 Urine pH 5.5 (5-7) 07/31/25 15:50 Ur Specific [place] 1.020 (1.005-1.030) 07/31/25 15:50 Urine Protein 3+ (Negative) A 07/31/25 15:50 Urine Glucose (UA) Negative (Normal) 07/31/25 15:50 Urine Ketones Trace (Negative) 07/31/25 15:50 Urine Blood 3+ (Negative) A 07/31/25 15:50 Urine Nitrate Negative (Negative) 07/31/25 15:50 Urine Bilirubin 1+ (Negative) H 07/31/25 15:50 Urine Urobilinogen 1.0 mg/dL (Negative) 07/31/25 15:50 Ur Leukocyte Esterase 3+ (Negative) A 07/31/25 15:50 Urine RBC 51-100 /hpf (0-2) H 07/31/25 15:50 Urine WBC >100 /hpf (0-5) H 07/31/25 15:50 Ur Squamous Epith Cells 0-5 /hpf (0-5) 07/31/25 15:50 Amorphous Sediment Not Reportable 07/31/25 15:50 Urine Bacteria 4+ /hpf (NONE) H 07/31/25 15:50 Hyaline Casts 10.81 /lpf 07/31/25 15:50 All radiology interpretation(s) finalized by discharge Discharge Plan Discharge Patient Disposition: Admitted As Inpatient Admit Provider: Aaron Penny Clinical Impression: UTI (urinary tract infection), Obesity hypoventilation syndrome, Atrial fibrillation, COPD exacerbation, Pneumonia Condition: Stable Coding Level of Care Code ED Permit Technician for Alexandra Mojica
[2025-07-31 16:21] LABS: Add Urine Microscopic? YES
--- NOTE | 2025-07-31 16:21 | XRR_ITS ---
PROCEDURE INFORMATION: Exam: XR Chest Exam date and time: 07/31/2025 4:32 PM Age: 55 years old Clinical indication: Cough and dyspnea; Additional info: Dyspnea/cough TECHNIQUE: Imaging protocol: Radiologic exam of the chest. Views: 1 view. COMPARISON: CR XR chest 1V portable [id number] 07/27/2024 7:16 PM FINDINGS: Lungs: There is suboptimal evaluation of the lung parenchyma due to overlying soft tissues. There appear to be diffusely increased interstitial markings throughout the lungs with slight cephalization of flow suspicious for mild interstitial pulmonary edema. No dense focal consolidation is seen. Pleural spaces: No significant pleural effusion. No pneumothorax. Heart/Mediastinum: Mildly enlarged, stable. Bones/joints: Intact. Other findings: None. XR/XR chest 1V portable [id number] IMPRESSION: Mild stable cardiomegaly with findings suspicious for interstitial pulmonary edema. Please correlate clinically. Evaluation is limited by overlying soft tissues.
[2025-07-31 16:43] LABS: UA Slide Review UA Slide Review Perf
[2025-07-31 16:44] LABS: Hematocrit 32.9 % (36-47); Hemoglobin 10.80 g/dL (11.27-16.99); Mean Corpuscular HGB Conc 32.8 g/dL (30-55); Mean Corpuscular Hemoglobin 30.2 pg (27-33); Mean Corpuscular Volume 91.9 fl (85-98); Nucleated Red Blood Cells % 0 %; Platelet Count 131 10^3/cmm (157-399); Red Blood Count 3.58 10^6/uL (3.85-5.65); White Blood Count 6.67 10^3/uL (3.29-11.43)
[2025-07-31 17:00] LABS: Lactic Sepsis W/Reflex 1.1 mmol/L (0.5-2.2)
[2025-07-31 17:02] LABS: Anion Gap 8.9 (5-19); Blood Urea Nitrogen 14 mg/dL (6-20); Calcium 8.7 mg/dL (8.5-10.5); Carbon Dioxide 30 mmol/L (22-29); Chloride 98 mmol/L (98-107); Glucose 186 mg/dL (65-115); Osmolality Calculated 281 mOsm/kg (285-295); Potassium 3.9 mmol/L (3.5-5.1); Sodium 133 mmol/L (136-145)
[2025-07-31 17:17] LABS: ABG PCO2 44.2 mmHg (35-45); ABG PH Result 7.42 (7.35-7.45); Arterial Blood Gas Hematocrit 34.3 % (37-47); Blood Gas Allen Test Pos; Blood Gas LPM 7.0 %; Blood Gas Operator Identificat WALCI; Blood Gas Sample Site Radial, left; Blood Gas Sample Type Arterial; Carboxyhemoglobin 2.0 %THgb (0.4-20.1); Glucose Level-ABG 175.0 mg/dL (70-115); HCO3 ABG 28.4 mmol/L (22-26); Ionized Calcium Level - ABG 1.2 mmol/L (1.1-1.4); Methemoglobin 0.0 % (0.4-1.5); Oxygen Saturation ABG 98.9; PO2 ABG 101.0 mmHg (80.0-100.0); Potassium Level - ABG 3.8 mmol/L (3.5-5.0); Sodium Level - ABG 135.0 mmol/L (131-143)
--- NOTE | 2025-07-31 17:25 | ECG_ITS ---
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 Measurements Intervals [place] Rate: 78 P: 73 PA: 164 QRS: 60 QRSD: 152 T: 24 QT: 419 QTc: 478 Interpretive Statements SINUS RHYTHM RIGHT BUNDLE BRANCH BLOCK [120+ ms QRS DURATION, UPRIGHT V1, 40+ ms S IN I/aVL/V4/V5/V6] Compared to ECG 04/11/2023 10:23:50 No significant changes Electronically Signed On 08-01-2025 07:40:11 OPERATIONS EXECUTIVE by Jenna Raines M.D. [id number]
--- NOTE | 2025-07-31 17:28 | US_ITS ---
WS: [id number] RENAL ULTRASOUND HISTORY: uti COMPARISON: CT 07/31/2025 TECHNIQUE: 2-D and color Doppler imaging of the kidney submitted. Right kidney: 13.9 cm x 6.7 cm x 6.3 cm. Cortex: 1.7 cm Normal echogenicity with no hydronephrosis or mass. Left kidney: 12.4 cm x 5.5 cm x 6.1 cm. Cortex: 1.9 cm Normal echogenicity with no hydronephrosis or mass. Aorta: Not visualized. Urinary Bladder: Nondistended. Hairston catheter present. US/US renal BI* [id number] IMPRESSION: Normal renal ultrasound.
--- NOTE | 2025-07-31 17:30 | P.HP_ITS ---
Providers/Chief Complaint 2 Primary Care Provider: Pal Caballero DO Chief Complaint: Pain with urinating History of Present Illness Karly Sotomayor is a 55 year old female with a past medical history of morbid obesity, type 2 diabetes mellitus, dyslipidemia, chronic anticoagulant therapy, asthma, atrial fibrillation on Eliquis, CHF, CKD, who is chronically on 7 L, who presents [facility] due to shortness of breath and dysuria. Currently patient is alert oriented x 3, following all commands, is on 6 L, she becomes short of breath with a few words, denies any chest pain, palpitations, no lightheadedness, no dizziness, does report a productive cough, subjective fevers and chills, does report dysuria, no flank pain no history of kidney stones, she does report diffuse abdominal pain, Review of Systems 2 Card: Denies: chest pain Resp: Reports: dyspnea GI: Reports: abdominal pain; Denies: nausea, vomiting, diarrhea or constipation : Reports: urinary frequency; Denies: flank pain or difficulty voiding Medications/Allergies Home Medications ?Medication ?Instructions ?Recorded ?Confirmed ?Last Taken ?Type albuterol sulfate 2.5 mg/3 mL 2.5 mg continuous nebuli zation Q6H 10/18/24 02/19/25 Unknown History (0.083 %) solution for nebulization sodium chloride 0.9 % for 2.5 ml inhalation Q6H 02/19/25 Unknown History nebulization metformin 750 mg tablet,extended See Rx Instructions . Route 11/02/24 02/19/25 Unknown Rx release 24 hr .COMPLEX #90 tabs albuterol sulfate 90 mcg/actuation See Rx Instructions .Route 12/05/24 02/19/25 Unknown Rx aerosol inhaler .COMPLEX #8.5 grams alcohol swabs 1 pad topical DIRECTED #2 00 ea 01/03/25 02/19/25 Unknown Rx lancets #200 ea 01/03/25 02/19/25 Un known Rx benralizumab 30 mg/mL subcutaneous 30 mg SUBCUT .Q8 we eks #1 mL 01/08/25 02/19/25 Unknown Rx auto-injector (Fasenra Pen) spironolactone 50 mg tablet See Rx Instructions .Route 02/12/25 02/19/25 Unknown Rx .COMPLEX #90 tabs blood sugar diagnostic (Contour #100 ea 04/02/25 Unkn own Rx Plus Test Strip) blood-glucose meter (Contour Plus #1 ea 04/02/25 Unkn own Rx Blue Meter) atorvastatin 80 mg tablet See Rx Instructions .Route 0 05/10/25 Unknown Rx .COMPLEX #90 tabs citalopram 20 mg tablet See Rx Instructions .Route 0 05/10/25 Unknown Rx .COMPLEX #30 tabs montelukast 10 mg tablet See Rx Instructions .Route 0 05/10/25 Unknown Rx .COMPLEX #90 tabs apixaban 5 mg tablet (Eliquis) See Rx Instructions .Ro simon 05/23/25 Unknown Rx .COMPLEX #90 tabs fluticasone fur. 100 mcg-umeclid See Rx Instructions . Route 05/24/25 Unknown Rx 62.5 mcg-vilant 25 mcg .COMPLEX #60 ea inhalat.powder (Trelegy Ellipta) metoprolol tartrate 75 mg tablet See Rx Instructions . Route 06/13/25 Unknown Rx .COMPLEX #180 tabs bumetanide 2 mg tablet See Rx Instructions .Route 1 Unknown Rx .COMPLEX #60 tabs celecoxib 200 mg capsule See Rx Instructions .Route 1 Unknown Rx .COMPLEX #60 caps gabapentin 800 mg tablet See Rx Instructions .Route 1 Unknown Rx .COMPLEX #90 tabs potassium chloride 20 mEq See Rx Instructions .Route 1 Unknown Rx tablet,extended release .COMPLEX #30 tabs cyclobenzaprine 10 mg tablet See Rx Instructions .Rout e 07/23/25 Unknown Rx .COMPLEX #120 tabs oxycodone-acetaminophen 10 mg-325 1 tab PO Q8H PRN matt n 30 days #90 07/23/25 Unknown Rx mg tablet (Percocet) tabs baclofen 10 mg tablet See Rx Instructions .Route 1 09/25/24 Unknown Rx .COMPLEX #90 tabs valsartan 80 mg tablet See Rx Instructions .Route 1 09/26/24 Unknown Rx .COMPLEX #30 tabs Allergies Allergy/AdvReac Type Severity Reaction Status Date / Time adhesive tape Allergy ALGY-Bliste Verified 02/19/25 10:13 r latex Allergy ALGY-Bliste Verified 02/19/25 10:13 r Penicillins Allergy ALGY-Hives Verified 02/19/25 10:13 PFSH Acute 2 PFSH: Medical History Right shoulder pain Chest wall pain, chronic Atrial fibrillation Atypical chest pain Steroid dependence Obstructive sleep apnea Solitary pulmonary nodule Chest pain Obesity hypoventilation syndrome CHF (congestive heart failure) Morbid obesity with BMI of 70 and over, adult Severe persistent asthma dependent on systemic steroids Diabetic retinopathy Depression Right bundle branch block Infected sebaceous cyst of skin Chronic anticoagulation Mixed dyslipidemia Essential hypertension Hemangioma Left shoulder CKD (chronic kidney disease) Diabetes mellitus type 2, uncontrolled, with complications Surgical History History of hysterectomy S/P cholecystectomy Family History Mother Myocardial infarct Stroke Hypertension Father Myocardial infarct Social History Smoking and tobacco/nicotine status: never used tobacco/nicotine Alcohol intake: never Substance/Drug Use: never Female Reproductive History: Spontaneous abortions: No Vitals/I&O/Wt Last Vital Signs Temp 97.7 F 07/31/25 15:41 Pulse 78 07/31/25 15:41 Resp 30 H 07/31/25 15:41 BP 92/54 07/31/25 15:41 Pulse Ox 98 07/31/25 15:41 O2 Del Method Nasal Cannula 07/31/25 15:41 O2 Flow Rate 7 07/31/25 15:41 Weight last 48 hrs Weight 290.299 kg Physical Exam 2 Const: COMMON NORMALS: no acute distress and patient oriented x3 HENMT: COMMON NORMALS: normocephalic HEAD & SCALP: normocephalic Neck/C-Spine: COMMON NORMALS: no JVD Resp: COMMON NORMALS: normal respiratory effort, No retractions and No use of accessory muscles AUSCULTATION: wheezes Cardio: COMMON NORMALS: no JVD, regular rate, regular rhythm, S1 normal heart sound present and S2 normal heart sound present RATE: regular rate RHYTHM: regular rhythm HEART SOUNDS: S1 normal heart sound present and S2 normal heart sound present GI: COMMON NORMALS: Normal to inspection, nondistended, normoactive bowel sounds present, Soft to palpation and non-tender Extremity: COMMON NORMALS: no calf tenderness and no pedal edema Neuro: COMMON NORMALS: patient oriented x3, CN's II-XII intact bilaterally and moves all extremities Psych: COMMON NORMALS: mental status grossly normal Quick SOFA Score: Respiratory Rate: 30 Blood Pressure: 92/54 [place] Coma Scale: 15 qSOFA Score: 2 If qSOFA score 2 or greater, continue: Blood Pressure Mean: 66 Platelets (x10?/ml): 131 Creatinine (mg/dl): 0.8 Evaluation: Current stage of sepsis: sepsis Sepsis stage criteria used: [facility] Sep-1 and Sepsis-3 Crystalloid fluids: less than 30 mL/kg crystalloid fluids ordered Blood cultures ordered: Yes Possible source: pulmonary and genitourinary Focused Exam: Vital signs: Temp Pulse Resp BP Pulse Ox O2 Del Method O2 Flow Rate 07/31/25 15:41 97.7 F 78 30 H 92/54 98 Nasal Cannula 7 Respiratory exam: crackles present Peripheral pulse strength: 2+ Slightly Diminished Peripheral pulse location: Radial and Pedal Skin exam: turgor normal Date exam was performed: 07/31/25 Time exam was performed: 1 7:36 2 Sepsis Screen No Definite Risk Today, 15:41 Respiratory Rate, (12 - 18) 30 breaths/min H Today, 15:41 Blood Pressure 92/54 mmHg Today, 15:41 Aaron Coma Scale Score 15 Today, 15:41 Quick SOFA Score 2 Today, 15:41 SOFA Score: 2 Aaron Coma Scale Score 15 Today, 15:41 Blood Pressure Mean 66 mmHg Today, 15:41 Platelet Count, (157-399) 131 10^3/cmm L Today, 16:27 Creatinine, (0.5-0.9) 0.8 mg/dL Today, 16:27 Data 07/31/25 16:27 07/31/25 16:27 A&P Assessment and plan 1. Diabetes mellitus type 2, uncontrolled, with complications: 2. Morbid obesity with BMI of 70 and over, adult: 3. CKD (chronic kidney disease): 4. Obesity hypoventilation syndrome: 5. Sepsis: 6. UTI (urinary tract infection): 7. Pneumonia: 8. Acute hypoxic respiratory failure: Plan: Acute hypoxic respiratory failure - With underlying obesity hypoventilation syndrome - Currently on 7 L, BiPAP at home Plan - Monitor respiratory status closely in the ICU - DuoNeb - Budesonide - Solu-Medrol 125 mg followed by 40 mg IV every 8 hours - Vancomycin - Meropenem - Blood culture - Respiratory viral panel - Full code - Eliquis for DVT prophylaxis Sepsis - Sepsis features met given respiratory failure, UTI - Has a history of diastolic CHF, risk of fluid overload - Will give her 500 mL LR bolus, monitor blood pressures closely in the ICU Urinary tract infection - Continue meropenem - CT scan abdomen/pelvis Obesity hypoventilation syndrome Type 2 diabetes mellitus, low-dose sliding scale Atrial fibrillation hold metoprolol, continue Eliquis PDMP PDMP Reviewed: Not Reviewed Attestations 2 Medical Necessity Statement*: Patient requires hospitalization, inpatient, greater than 2 midnights, for acute hypoxic respiratory failure, pneumonia, UTI, sepsis Diagnoses Diabetes mellitus type 2, uncontrolled, with complications Morbid obesity with BMI of 70 and over, adult E66.01; Z68.45 CKD (chronic kidney disease) N18.9 Obesity hypoventilation syndrome E66.2 Sepsis A41.9 UTI (urinary tract infection) N39.0 Pneumonia J18.9 Acute hypoxic respiratory failure J96.01
--- NOTE | 2025-07-31 17:32 | CTR_ITS ---
PROCEDURE INFORMATION: Exam: CT Abdomen And Pelvis Without Contrast Exam date and time: 07/31/2025 5:51 PM Age: 55 years old Clinical indication: PT presents to ED via [facility] d/t hematuria, dysuria, flu-like symptoms. ; Additional info: Kidney stone TECHNIQUE: Imaging protocol: Computed tomography of the abdomen and pelvis without contrast. Radiation optimization: All CT scans at this facility use at least one of these dose optimization techniques: automated exposure control; mA and/or kV adjustment per patient size (includes targeted exams where dose is matched to clinical indication); or iterative reconstruction. COMPARISON: CR XR pelvis min 3V [id number] 02/03/2022 8:24 AM RADIATION DOSE METRICS: Total DLP (mGy-cm): 1735.88 FINDINGS: Limitations: There is extensive streak artifact throughout the abdomen and pelvis related to the patient's large body habitus which markedly limits evaluation. Lungs: There is patchy bibasilar atelectasis. There is a round 20 x 16 mm noncalcified nodule in the posterior left lower lobe, slightly increased in size since the prior study (previously measuring 14 x 11 mm). Liver: Enlarged measuring 21 cm in length with diffuse decreased attenuation throughout compatible with fatty infiltration. No definite focal lesion is seen. Gallbladder and biliary ducts: Surgically absent. No significant biliary ductal dilatation. Pancreas: Unremarkable as visualized. Spleen: Unremarkable as visualized. Adrenal glands: Unremarkable as visualized. Kidneys and ureters: There is a 6 mm stone in the lower pole of the right kidney. The ureters are difficult to follow. No other definite renal or ureteral calculi are detected. Evaluation of hydronephrosis is limited. No definite hydronephrosis is seen. Stomach and bowel: Small and large bowel loops appear to be normal in caliber. There is a left paramidline ventral abdominal wall hernia which appears to contain fat and nondilated bowel loops. No significant bowel dilatation or evidence of obstruction. Appendix: Not visualized. Intraperitoneal space: Suboptimally evaluated. A small amount of free fluid in the pelvis is difficult to exclude.. Vasculature: The abdominal aorta appears normal in caliber. No abdominal aortic aneurysm. Lymph nodes: No bulky lymphadenopathy is appreciated. Urinary bladder: Poorly visualized on this exam. Reproductive: Poorly visualized on this exam. Bones/joints: There are mild diffuse compression deformities throughout the lumbar and visualized lower thoracic spine, age indeterminate. Degenerative changes are noted. Soft tissues: Left paramidline ventral abdominal wall hernia which appears to contain fat and nondilated small bowel. CT/CT abdomen pelvis wo con [id number] IMPRESSION: 1. Markedly limited study due to streak artifact related to the patient's large body habitus. 2. Right renal nephrolith measuring 6 mm. No other renal or ureteral calculi are detected, however evaluation is limited. No definite hydronephrosis is appreciated, however evaluation is limited. 3. Left paramidline ventral abdominal wall hernia which appears to contain fat and nondilated bowel loops. No significant associated bowel obstruction appreciated. 4. Hepatomegaly with diffuse fatty infiltration. 5. Patchy bibasilar atelectasis. 6. Noncalcified round 20 x 16 mm nodule in the posterior left lower lobe, slightly increased in size since June 30, 2022 (previously measuring 14 x 11 mm). Neoplasm cannot be excluded. PET/CT may be helpful for further evaluation. 7. Mild compression deformities involving the lumbar and visualized lower thoracic vertebra, age indeterminate.
[2025-07-31 17:40] LABS: NT Pro B Type Natriuretic Pept 516 pg/mL (0-125); Procalcitonin 1.09 ng/mL (0-0.5)
[2025-07-31 17:53] LABS: Troponin(5th) Baseline 11 ng/L (0-10)
[2025-07-31 19:13] LABS: Estmated Average Glucose 120; Hemoglobin A1C 5.8 % (4.0-6.0)
--- NOTE | 2025-07-31 19:24 | ECG_ITS ---
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 Measurements Intervals [place] Rate: 92 P: 79 NV: 170 QRS: 69 QRSD: 155 T: 17 QT: 369 QTc: 458 Interpretive Statements SINUS RHYTHM RIGHT BUNDLE BRANCH BLOCK [120+ ms QRS DURATION, UPRIGHT V1, 40+ ms S IN I/aVL/V4/V5/V6] Compared to ECG 07/31/2025 18:11:02 No significant changes Electronically Signed On 08-01-2025 09:52:50 WELL HEAD PUMPER by Jenna Raines M.D. [email or web address] [id number]
[2025-07-31 19:25] LABS: Cholesterol 79 mg/dL (0-200); HDL Cholesterol 38 mg/dL (60-100); Thyroid Stimulating Hormone 3.11 uIU/mL (0.27-4.20); Triglycerides 43 mg/dL (0-150)
[2025-07-31] MEDS: pantoprazole 40 mg SDV IVP (19:29)
[2025-07-31] MEDS: methylPREDNISolone sod succ 125 mg/2 mL INJ IVP (19:29)
[2025-07-31] MEDS: morphine 4 mg/mL SDV 1 mL 1 MG IVP (20:12)
[2025-07-31] MEDS: meropenem 1,000 mg SDV 1000 MG IVP (20:12)
--- NOTE | 2025-07-31 20:35 | PC.NURSE ---
Pain Patient complaining of severe pain in her back as well as legs. Patient requesting home dose of baclofen and oxycodone. Dr. Morrow contacted; order received to restart home doses of oxycodone 10-325 mg Q8H PRN for pain as well as baclofen 10 mg BID PRN for muscle spasms.
[2025-07-31 21:46] LABS: Troponin 5 2HR 11.07 ng/L (0-10); Troponin 5 2HR Delta 0.07 ABS# (0-10)
[2025-07-31 22:13] LABS: Respiratory Syncytial Virus Ce NEGATIVE (Negative); SARS-CoV-2 PCR NEGATIVE (Negative)
[2025-07-31] MEDS: ondansetron 2 mg/ML SDV 2 mL 4 MG IVP (22:21)
[2025-07-31 23:16] LABS: Troponin 5 6HR 9.08 ng/L (0-10); Troponin 5 6HR Delta -1.92 ng/L (0-12)
--- NOTE | 2025-07-31 23:24 | ECG_ITS ---
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 Measurements Intervals [place] Rate: 99 P: 58 TX: 171 QRS: 65 QRSD: 162 T: 27 QT: 392 QTc: 505 Interpretive Statements SINUS RHYTHM RIGHT BUNDLE BRANCH BLOCK [120+ ms QRS DURATION, UPRIGHT V1, 40+ ms S IN I/aVL/V4/V5/V6] Compared to ECG 07/31/2025 20:35:48 No significant changes Electronically Signed On 08-01-2025 09:52:23 GRADING MACHINE FEEDER by Jenna Raines M.D. [email or web address] [id number]
[2025-07-31] MEDS: oxyCODONE-APAP 10-325 mg Tablet 1 TAB PO (23:26)
[2025-08-01] VITALS (96 sets, daily range): BP systolic 92–148; BP diastolic 48–101; PULSE 89–137; RESP 12–33; TEMP 36.5–36.9; O2SAT 88–100
--- NOTE | 2025-08-01 00:44 | PC.NURSE ---
Redness Upon entering patient room, patient's face and upper arms bright red with white coloring around her mouth. Patient denies itching, shortness of breath, or chest pain, but does state that she just feels hot. Oral temperature 97.8F. Dr. Morrow notified; no new orders received.
[2025-08-01] MEDS: methylPREDNISolone sod succ 40 mg/mL INJ IVP ×2 (04:39→11:48)
[2025-08-01] MEDS: meropenem 1,000 mg SDV 1000 MG IVP ×3 (04:39→20:23)
[2025-08-01 04:57] LABS: Hematocrit 35.0 % (36-47); Hemoglobin 11.50 g/dL (11.27-16.99); Mean Corpuscular HGB Conc 32.9 g/dL (30-55); Mean Corpuscular Hemoglobin 29.2 pg (27-33); Mean Corpuscular Volume 88.8 fl (85-98); Nucleated Red Blood Cells % 0 %; Platelet Count 145 10^3/cmm (157-399); Red Blood Count 3.94 10^6/uL (3.85-5.65); White Blood Count 5.17 10^3/uL (3.29-11.43)
[2025-08-01 05:14] LABS: Alanine Aminotransferase 22 U/L (0-33); Albumin Level 4.0 g/dL (3.5-5.2); Alkaline Phosphatase 161 U/L (35-105); Anion Gap 16.2 (5-19); Aspartate Amino Transferase 20 U/L (0-32); Blood Urea Nitrogen 10 mg/dL (6-20); Calcium 9.2 mg/dL (8.5-10.5); Carbon Dioxide 27 mmol/L (22-29); Chloride 99 mmol/L (98-107); Globulin 3.2 g/dL (1.3-4.6); Glucose 220 mg/dL (65-115); Magnesium 2.2 mg/dL (1.7-2.3); Osmolality Calculated 292 mOsm/kg (285-295); Potassium 4.2 mmol/L (3.5-5.1); Sodium 138 mmol/L (136-145); Total Protein 7.2 g/dL (6.6-8.7)
[2025-08-01] MEDS: morphine 4 mg/mL SDV 1 mL 1 MG IVP ×3 (06:00→20:15)
[2025-08-01] MEDS: oxyCODONE-APAP 10-325 mg Tablet 1 TAB PO ×2 (08:16→17:38)
--- NOTE | 2025-08-01 09:48 | PC.NURSE ---
Received PT/OT orders from Dr. Cleaning, orders entered.
--- NOTE | 2025-08-01 11:17 | PHA.VACGOAL ---
Vancomycin Goal - Goal Vancomycin Goal:: 15-20 mg/L - Therapy Day of therpy:: Day []of [] . Actual body weight (kg): 588 lb 12.8 oz - Data Labs: WBC 5.17 10^3/uL (3.29-11.43) 08/01/25 04:33 RBC 3.94 10^6/uL (3.85-5.65) 08/01/25 04:33 Hgb 11.50 g/dL (11.27-16.99) 08/01/25 04:33 Hct 35.0 % (36-47) L 08/01/25 04:33 MCV 88.8 fl (85-98) 08/01/25 04:33 MCH 29.2 pg (27-33) 08/01/25 04:33 MCHC 32.9 g/dL (30-55) 08/01/25 04:33 RDW 13.2 % (12.1-15.1) 08/01/25 04:33 Sodium 138 mmol/L (136-145) 08/01/25 04:33 Potassium 4.2 mmol/L (3.5-5.1) 08/01/25 04:33 Chloride 99 mmol/L (98-107) 08/01/25 04:33 Carbon Dioxide 27 mmol/L (22-29) 08/01/25 04:33 Anion Gap 16.2 (5-19) 08/01/25 04:33 BUN 10 mg/dL (6-20) 08/01/25 04:33 Creatinine 0.6 mg/dL (0.5-0.9) 08/01/25 04:33 GFR Calculation 103.4 mL/min (90-130) 08/01/25 04:33 Treatment plan:: continue Regimen:: TROUGH 08/02 @ 0300
--- NOTE | 2025-08-01 14:47 | P.PN_ITS ---
Subjective 2 Subjective: Patient was seen this morning, alert oriented x 3, all commands we discussed her CT scan findings, left kidney stone denies any flank pain, no dysuria, denies passing kidney stone, discussed with her that the ultrasound of her kidneys which was performed after the CT scan does not show radiographic evidence of the kidney stones so she might of passed it, we will continue to monitor, her collect her urine Vitals/I&O/Wt Last Vital Signs Temp 98.5 F 08/01/25 08:00 Pulse 114 H 08/01/25 13:18 Resp 19 H 08/01/25 13:00 BP 143/70 08/01/25 13:00 Pulse Ox 93 08/01/25 13:00 O2 Del Method High Flow Nasal Cannula 08/01/25 13:00 O2 Flow Rate 8 08/01/25 13:00 FiO2 50 07/31/25 20:56 07/31/25 08/01/25 08/01/25 22:59 06:59 14:59 Intake Total 850 / 850 400 / 1250 540 / 540 Output Total 1300 / 1300 1575 / 2875 Balance -450 / -450 -1175 / -1625 540 / 540 Weight last 48 hrs Weight 267.075 kg Weight 269.632 kg Weight 290.299 kg Physical Exam 2 Const: COMMON NORMALS: no acute distress and patient oriented x3 Resp: COMMON NORMALS: normal respiratory effort, No retractions, No use of accessory muscles and clear to auscultation bilaterally AUSCULTATION: clear to auscultation bilaterally Cardio: COMMON NORMALS: regular rate, regular rhythm, S1 normal heart sound present and S2 normal heart sound present RATE: regular rate RHYTHM: r egular rhythm HEART SOUNDS: S1 normal heart sound present and S2 normal heart sound present GI: COMMON NORMALS: Normal to inspection, nondistended, normoactive bowel sounds present and non-tender Extremity: COMMON NORMALS: no pedal edema Neuro: COMMON NORMALS: patient oriented x3, CN's II-XII intact bilaterally and moves all extremities Psych: COMMON NORMALS: mental status grossly normal Urinary Catheter Management: Hairston: Cath Placed During This Visit: no Reason for Continuing Indwelling Catheter: Accurate Measurement of Urinary Output in Critically Ill Patients Data 08/01/25 04:33 08/01/25 04:33 Micro: Microbiology 07/31/25 15:50 Urine Culture - Preliminary Urine,Clean Catch Gram Negative Rods 07/31/25 18:04 Blood Culture - Preliminary Blood SPECIMEN COLLECTED 07/31/25 18:03 Blood Culture - Preliminary Blood SPECIMEN COLLECTED A&P Assessment and plan 1. Diabetes mellitus type 2, uncontrolled, with complications: 2. Morbid obesity with BMI of 70 and over, adult: 3. CKD (chronic kidney disease): 4. Obesity hypoventilation syndrome: 5. Sepsis: 6. UTI (urinary tract infection): 7. Pneumonia: 8. Acute hypoxic respiratory failure: Plan: Acute hypoxic respiratory failure - With underlying obesity hypoventilation syndrome - Currently on 7 L, BiPAP at home Plan - Monitor respiratory status closely in the ICU - DuoNeb - Budesonide - Solu-Medrol 125 mg followed by 40 mg IV every 8 hours - Vancomycin - Meropenem - Blood culture - Respiratory viral panel negative - Full code - Eliquis for DVT prophylaxis Sepsis - Sepsis features met given respiratory failure, UTI - Has a history of diastolic CHF, risk of fluid overload Urinary tract infection - Continue meropenem - CT scan abdomen/pelvis CT/CT abdomen pelvis wo con [id number] IMPRESSION: 1. Markedly limited study due to streak artifact related to the patient's large body habitus. 2. Right renal nephrolith measuring 6 mm. No other renal or ureteral calculi are detected, however evaluation is limited. No definite hydronephrosis is appreciated, however evaluation is limited. 3. Left paramidline ventral abdominal wall hernia which appears to contain fat and nondilated bowel loops. No significant associated bowel obstruction appreciated. 4. Hepatomegaly with diffuse fatty infiltration. 5. Patchy bibasilar atelectasis. 6. Noncalcified round 20 x 16 mm nodule in the posterior left lower lobe, slightly increased in size since June 30, 2022 (previously measuring 14 x 11 mm). Neoplasm cannot be excluded. PET/CT may be helpful for further evaluation. 7. Mild compression deformities involving the lumbar and visualized lower thoracic vertebra, age indeterminate. us renal TECHNIQUE: 2-D and color Doppler imaging of the kidney submitted. Right kidney: 13.9 cm x 6.7 cm x 6.3 cm. Cortex: 1.7 cm Normal echogenicity with no hydronephrosis or mass. Left kidney: 12.4 cm x 5.5 cm x 6.1 cm. Cortex: 1.9 cm Normal echogenicity with no hydronephrosis or mass. Aorta: Not visualized. Urinary Bladder: Nondistended. Hairston catheter present. - Flomax - Strain urine - Monitor closely Obesity hypoventilation syndrome Type 2 diabetes mellitus, low-dose sliding scale Atrial fibrillation continue metoprolol, continue Eliquis PDMP PDMP Reviewed: Not Reviewed Attestations 2 Medical Necessity Statement*: Patient requires hospitalization for respiratory failure, pneumonia, UTI Diagnoses Diabetes mellitus type 2, uncontrolled, with complications Morbid obesity with BMI of 70 and over, adult E66.01; Z68.45 CKD (chronic kidney disease) N18.9 Obesity hypoventilation syndrome E66.2 Sepsis A41.9 UTI (urinary tract infection) N39.0 Pneumonia J18.9 Acute hypoxic respiratory failure J96.01
[2025-08-01] MEDS: FUROsemide 10 mg/mL SDV 4mL 40 MG IVP (17:31)
[2025-08-01] MEDS: pantoprazole 40 mg SDV IVP (17:32)
[2025-08-02] VITALS (24 sets, daily range): BP systolic 86–146; BP diastolic 56–95; PULSE 83–110; RESP 16–33; TEMP 36.4–36.6; O2SAT 91–98
[2025-08-02] MEDS: meropenem 1,000 mg SDV 1000 MG IVP ×3 (03:57→20:38)
[2025-08-02 04:54] LABS: Hematocrit 32.2 % (36-47); Hemoglobin 10.70 g/dL (11.27-16.99); Mean Corpuscular HGB Conc 33.2 g/dL (30-55); Mean Corpuscular Hemoglobin 29.6 pg (27-33); Mean Corpuscular Volume 89.2 fl (85-98); Nucleated Red Blood Cells % 0 %; Platelet Count 164 10^3/cmm (157-399); Red Blood Count 3.61 10^6/uL (3.85-5.65); White Blood Count 9.82 10^3/uL (3.29-11.43)
[2025-08-02] MEDS: FUROsemide 10 mg/mL SDV 4mL 40 MG IVP ×3 (05:28→22:03)
[2025-08-02 06:00] LABS: Alanine Aminotransferase 21 U/L (0-33); Albumin Level 3.7 g/dL (3.5-5.2); Alkaline Phosphatase 146 U/L (35-105); Anion Gap 12.5 (5-19); Aspartate Amino Transferase 16 U/L (0-32); Blood Urea Nitrogen 16 mg/dL (6-20); Calcium 9.3 mg/dL (8.5-10.5); Carbon Dioxide 29 mmol/L (22-29); Chloride 100 mmol/L (98-107); Globulin 3.0 g/dL (1.3-4.6); Glucose 377 mg/dL (65-115); Magnesium 2.2 mg/dL (1.7-2.3); Osmolality Calculated 301 mOsm/kg (285-295); Potassium 4.5 mmol/L (3.5-5.1); Sodium 137 mmol/L (136-145); Total Protein 6.7 g/dL (6.6-8.7)
[2025-08-02] MEDS: oxyCODONE-APAP 10-325 mg Tablet 1 TAB PO ×2 (06:12→17:39)
[2025-08-02] MEDS: methylPREDNISolone sod succ 40 mg/mL INJ IVP (08:28)
--- NOTE | 2025-08-02 12:52 | P.PN_ITS ---
Subjective 2 Subjective: Patient was seen and morning, currently alert oriented x 3, following all commands, she is sitting up in a chair she tells me that she is a bit more short of breath this morning, no chest pain, no palpitations Vitals/I&O/Wt Last Vital Signs Temp 97.7 F 08/02/25 11:17 Pulse 89 08/02/25 11:17 Resp 19 H 08/02/25 11:17 BP 129/67 08/02/25 11:17 Pulse Ox 96 08/02/25 11:17 O2 Del Method BiPAP 08/02/25 11:17 O2 Flow Rate 6 08/02/25 11:00 FiO2 50 07/31/25 20:56 08/01/25 08/02/25 08/02/25 22:59 06:59 14:59 Intake Total 600 / 1140 720 / 1860 240 / 240 Output Total 1999 1225 / 3225 Balance -1400 / -860 -505 / -1365 240 / 240 Weight last 48 hrs Weight 263.855 kg Weight 267.075 kg Weight 269.632 kg Weight 290.299 kg Physical Exam 2 Const: COMMON NORMALS: no acute distress and patient oriented x3 Resp: COMMON NORMALS: normal respiratory effort, No retractions and No use of accessory muscles OTHER: Close of the lung troy Cardio: COMMON NORMALS: regular rate, regular rhythm, S1 normal heart sound present and S2 normal heart sound present RATE: regular rate RHYTHM: r egular rhythm HEART SOUNDS: S1 normal heart sound present and S2 normal heart sound present GI: COMMON NORMALS: Normal to inspection, nondistended, normoactive bowel sounds present and non-tender Extremity: NARRATIVE EXTREMITY EXAM: 2+ pitting edema Neuro: COMMON NORMALS: patient oriented x3 Psych: COMMON NORMALS: mental status grossly normal Urinary Catheter Management: Hairston: Cath Placed During This Visit: no Reason for Continuing Indwelling Catheter: Accurate Measurement of Urinary Output in Critically Ill Patients Data 08/02/25 04:07 08/02/25 04:07 Micro: Microbiology 07/31/25 18:04 Blood Culture - Preliminary Blood NEGATIVE TO DATE 07/31/25 18:03 Blood Culture - Preliminary Blood NEGATIVE TO DATE 07/31/25 15:50 Urine Culture - Preliminary Urine,Clean Catch Gram Negative Rods A&P Assessment and plan 1. Diabetes mellitus type 2, uncontrolled, with complications: 2. Morbid obesity with BMI of 70 and over, adult: 3. CKD (chronic kidney disease): 4. Obesity hypoventilation syndrome: 5. Sepsis: 6. UTI (urinary tract infection): 7. Pneumonia: 8. Acute hypoxic respiratory failure: Plan: Acute hypoxic respiratory failure - With underlying obesity hypoventilation syndrome - Currently on 7 L, BiPAP at home - Now with respiratory failure associated with fluid overload Plan - Monitor respiratory status closely in the ICU - DuoNeb - Budesonide - Escalate to prednisone 40 mg daily - Vancomycin stopped - Meropenem -Start Lasix therapy 40 IV every 8 hours - Blood culture - Respiratory viral panel negative - Full code - Eliquis for DVT prophylaxis Sepsis resolved - Sepsis features met given respiratory failure, UTI - Has a history of diastolic CHF, risk of fluid overload Urinary tract infection - Continue meropenem - CT scan abdomen/pelvis CT/CT abdomen pelvis wo con [id number] IMPRESSION: 1. Markedly limited study due to streak artifact related to the patient's large body habitus. 2. Right renal nephrolith measuring 6 mm. No other renal or ureteral calculi are detected, however evaluation is limited. No definite hydronephrosis is appreciated, however evaluation is limited. 3. Left paramidline ventral abdominal wall hernia which appears to contain fat and nondilated bowel loops. No significant associated bowel obstruction appreciated. 4. Hepatomegaly with diffuse fatty infiltration. 5. Patchy bibasilar atelectasis. 6. Noncalcified round 20 x 16 mm nodule in the posterior left lower lobe, slightly increased in size since June 30, 2022 (previously measuring 14 x 11 mm). Neoplasm cannot be excluded. PET/CT may be helpful for further evaluation. 7. Mild compression deformities involving the lumbar and visualized lower thoracic vertebra, age indeterminate. us renal TECHNIQUE: 2-D and color Doppler imaging of the kidney submitted. Right kidney: 13.9 cm x 6.7 cm x 6.3 cm. Cortex: 1.7 cm Normal echogenicity with no hydronephrosis or mass. Left kidney: 12.4 cm x 5.5 cm x 6.1 cm. Cortex: 1.9 cm Normal echogenicity with no hydronephrosis or mass. Aorta: Not visualized. Urinary Bladder: Nondistended. Hairston catheter present. - Flomax - Strain urine - Monitor closely Obesity hypoventilation syndrome Type 2 diabetes mellitus, increase to high-dose sliding scale, Lantus 10 units daily Atrial fibrillation continue metoprolol, continue Eliquis Plan for today continue IV diuresis, continue IV antibiotics, plan to discharge in the next 24 hours, patient plans on going home, blood sugar control PDMP PDMP Reviewed: Not Reviewed Attestations 2 Medical Necessity Statement*: Patient requires hospitalization for respiratory failure Diagnoses Diabetes mellitus type 2, uncontrolled, with complications Morbid obesity with BMI of 70 and over, adult E66.01; Z68.45 CKD (chronic kidney disease) N18.9 Obesity hypoventilation syndrome E66.2 Sepsis A41.9 UTI (urinary tract infection) N39.0 Pneumonia J18.9 Acute hypoxic respiratory failure J96.01
[2025-08-02] MEDS: insulin glargine 100 units/1 mL 10 UNIT SUBCUT (13:44)
[2025-08-02] MEDS: pantoprazole 40 mg SDV IVP (18:06)
[2025-08-02] MEDS: polyethylene glycol 3350 Pkt 17 gm PO (22:03)
[2025-08-03] VITALS (8 sets, daily range): BP systolic 129–158; BP diastolic 66–82; PULSE 89–104; RESP 16–33; TEMP 36.6–36.7; O2SAT 90–99
[2025-08-03] MEDS: oxyCODONE-APAP 10-325 mg Tablet 1 TAB PO ×2 (02:31→10:51)
[2025-08-03] MEDS: FUROsemide 10 mg/mL SDV 4mL 40 MG IVP (04:36)
[2025-08-03] MEDS: meropenem 1,000 mg SDV 1000 MG IVP (04:36)
[2025-08-03] MEDS: insulin glargine 100 units/1 mL 10 UNIT SUBCUT (04:38)
[2025-08-03 06:09] LABS: Hematocrit 33.6 % (36-47); Hemoglobin 10.90 g/dL (11.27-16.99); Mean Corpuscular HGB Conc 32.4 g/dL (30-55); Mean Corpuscular Hemoglobin 29.0 pg (27-33); Mean Corpuscular Volume 89.4 fl (85-98); Nucleated Red Blood Cells % 0 %; Platelet Count 186 10^3/cmm (157-399); Red Blood Count 3.76 10^6/uL (3.85-5.65); White Blood Count 9.21 10^3/uL (3.29-11.43)
[2025-08-03 06:39] LABS: Alanine Aminotransferase 26 U/L (0-33); Albumin Level 4.0 g/dL (3.5-5.2); Alkaline Phosphatase 155 U/L (35-105); Anion Gap 17.8 (5-19); Aspartate Amino Transferase 17 U/L (0-32); Blood Urea Nitrogen 21 mg/dL (6-20); Calcium 9.7 mg/dL (8.5-10.5); Carbon Dioxide 31 mmol/L (22-29); Chloride 97 mmol/L (98-107); Globulin 3.4 g/dL (1.3-4.6); Glucose 226 mg/dL (65-115); Magnesium 2.0 mg/dL (1.7-2.3); Osmolality Calculated 304 mOsm/kg (285-295); Potassium 3.8 mmol/L (3.5-5.1); Sodium 142 mmol/L (136-145); Total Protein 7.4 g/dL (6.6-8.7)
--- NOTE | 2025-08-03 08:15 | P.DS_ITS ---
Discharge Providers Date of Admission: 07/31/25 17:46 Date of Discharge: August 03, 2025 Attending Provider at Admission: Aaron Penny MD Attending Provider at Discharge: Giancarlo Burgess Primary Care Provider: Pal Caballero DO Diagnoses at Discharge Discharge Diagnosis 1. Diabetes mellitus type 2, uncontrolled, with complications: 2. Morbid obesity with BMI of 70 and over, adult: 3. Stage 2 chronic kidney disease: 4. Obesity hypoventilation syndrome: 5. Sepsis: 6. UTI (urinary tract infection): 7. Pneumonia: 8. Acute hypoxic respiratory failure: Reason for Visit Reason for Visit: Pain with urinating Brief History: Karly Sotomayor is a 55 year old female with a past medical history of morbid obesity, type 2 diabetes mellitus, dyslipidemia, chronic anticoagulant therapy, asthma, atrial fibrillation on Eliquis, CHF, CKD, who is chronically on 7 L, who presents [facility] due to shortness of breath and dysuria. Currently patient is alert oriented x 3, following all commands, is on 6 L, she becomes short of breath with a few words, denies any chest pain, palpitations, no lightheadedness, no dizziness, does report a productive cough, subjective fevers and chills, does report dysuria, no flank pain no history of kidney stones, she does report diffuse abdominal pain, Hospital Course Hospital Course She received treatment for pneumonia with acute on chronic hypoxic respiratory failure, initially possible sepsis noted, resolved, treated with antibiotics for both pneumonia and urinary tract infection. Urine culture eventually growing E. coli. Received treatment with IV diuretics due to fluid overload and possible diastolic heart failure. Incidentally noted 6 mm kidney stone on CT abdomen pelvis kidney ultrasound was normal. Respiratory function improved and she is feeling better. At discharge she was referred for follow-up with pulmonology due to chronic respiratory failure, normally on 6 L of oxygen, CPAP nightly. Please follow-up incidentally noted noncalcified round 20 x 16 mm nodule in the posterior left lower lobe with some noted increase in size, PET/CT may be helpful for further evaluation as discussed w her. Please follow-up incidentally noted hepatomegaly and diffuse fatty infiltration of the liver as discussed w her. Physical Exam Narrative: Awake, alert, pleasant, conversant. Undergoing breathing treatment. Const: COMMON NORMALS: patient oriented x3 and alert GENERAL APPEARANCE: cooperative NUTRITIONAL APPEARANCE: obese morbidly obese ORIENTATION/CONSCIOUSNESS: Yes awake HENMT: COMMON NORMALS: oropharynx normal Neck/C-Spine: COMMON NORMALS: no JVD Resp: COMMON NORMALS: normal respiratory effort and clear to auscultation bilaterally AUSCULTATION: clear to auscultation bilaterally Cardio: COMMON NORMALS: no JVD, regular rhythm, S1 normal heart sound present, S2 normal heart sound present and No murmurs present (Cardio) RHYTHM: regular rhythm HEART SOUNDS: S1 normal heart sound present and S2 normal heart sound present GI: COMMON NORMALS: Normal to inspection, nondistended, normoactive bowel sounds present, Soft to palpation and non-tender PALPATION: Yes Soft to palpation Extremity: COMMON NORMALS: no joint enlargement and no pedal edema OTHER: Chronic stasis hemosiderosis. Neuro: COMMON NORMALS: patient oriented x3 and moves all extremities SENSORIUM/ORIENTATION: Yes alert Skin: COMMON NORMALS: no rashes or lesions noted GENERAL SKIN EXAM: no rashes or lesions noted Urinary Catheter Management: Hairston: Cath Placed During This Visit: no Reason for Continuing Indwelling Catheter: Other Discharge Data Studies Completed and Pending Completed Studies During Hospitalization Category Date Time Status CT abdomen pelvis wo con [id number] Stat Cat Scan 07/31/25 17:32 Completed XR chest 1V portable [id number] Stat Exams 07/31/25 16:21 Completed US renal BI* [id number] Stat Ultrasound 07/31/25 17:28 Completed Pending at discharge Category Date Time Status Blood Culture Stat Lab 07/31/25 18:04 Results Radiology Impressions Chest X-Ray 07/31/25 16:21 IMPRESSION: Mild stable cardiomegaly with findings suspicious for interstitial pulmonary edema. Please correlate clinically. Evaluation is limited by overlying soft tissues. Renal Ultrasound 07/31/25 17:28 IMPRESSION: Normal renal ultrasound. Abdomen/Pelvis CT 07/31/25 17:32 IMPRESSION: 1. Markedly limited study due to streak artifact related to the patient's large body habitus. 2. Right renal nephrolith measuring 6 mm. No other renal or ureteral calculi are detected, however evaluation is limited. No definite hydronephrosis is appreciated, however evaluation is limited. 3. Left paramidline ventral abdominal wall hernia which appears to contain fat and nondilated bowel loops. No significant associated bowel obstruction appreciated. 4. Hepatomegaly with diffuse fatty infiltration. 5. Patchy bibasilar atelectasis. 6. Noncalcified round 20 x 16 mm nodule in the posterior left lower lobe, slightly increased in size since June 30, 2022 (previously measuring 14 x 11 mm). Neoplasm cannot be excluded. PET/CT may be helpful for further evaluation. 7. Mild compression deformities involving the lumbar and visualized lower thoracic vertebra, age indeterminate. Laboratory Results WBC 9.21 10^3/uL (3.29-11.43) 08/03/25 03:56 RBC 3.76 10^6/uL (3.85-5.65) L 08/03/25 03:56 Hgb 10.90 g/dL (11.27-16.99) L 08/03/25 03:56 Hct 33.6 % (36-47) L 08/03/25 03:56 MCV 89.4 fl (85-98) 08/03/25 03:56 MCH 29.0 pg (27-33) 08/03/25 03:56 MCHC 32.4 g/dL (30-55) 08/03/25 03:56 RDW 13.5 % (12.1-15.1) 08/03/25 03:56 Plt Count 186 10^3/cmm (157-399) 08/03/25 03:56 MPV 10.5 fL (7.4-10.4) H 08/03/25 03:56 Neut % (Auto) 69.6 % 08/03/25 03:56 Lymph % (Auto) 20.4 % 08/03/25 03:56 [place] % (Auto) 8.8 % 08/03/25 03:56 Eos % (Auto) 0.0 % 08/03/25 03:56 Baso % (Auto) 0.1 % 08/03/25 03:56 Neut # (Auto) 6.41 10^3/uL (1.8-7.7) 08/03/25 03:56 Lymph # (Auto) 1.9 10^3/uL (0.8-4.8) 08/03/25 03:56 [place] # (Auto) 0.8 10^3/uL (0.2-0.9) 08/03/25 03:56 Eos # (Auto) 0.0 10^3/uL (0.0-0.8) 08/03/25 03:56 Baso # (Auto) 0.0 10^3/uL (0.0-0.1) 08/03/25 03:56 Nucleated RBC % (auto) 0 % 08/03/25 03:56 Nucleated RBCs # 0.0 /100WBC 08/03/25 03:56 Specimen Type Arterial 07/31/25 17:06 Sample Site Radial, left 07/31/25 17:06 ABG pH 7.42 (7.35-7.45) 07/31/25 17:06 ABG pCO2 44.2 mmHg (35-45) 07/31/25 17:06 ABG pO2 101.0 mmHg (80.0-100.0) H 07/31/25 17:06 ABG HCO3 28.4 mmol/L (22-26) H 07/31/25 17:06 ABG O2 Saturation 98.9 07/31/25 17:06 ABG Base Excess 3.3 mmol/L (-2.0-2.0) H 07/31/25 17:06 Florin Test Pos 07/31/25 17:06 A-a O2 Gradient Not Reportable 07/31/25 17:06 Hematocrit 34.3 % (37-47) L 07/31/25 17:06 Hgb O2 Saturation 97.0 % (95-100) 07/31/25 17:06 Carboxyhemoglobin 2.0 %THgb (0.4-20.1) 07/31/25 17:06 Methemoglobin 0.0 % (0.4-1.5) L 07/31/25 17:06 Total Hemoglobin 11.2 g/dL (12-16) L 07/31/25 17:06 Sodium 135.0 mmol/L (131-143) 07/31/25 17:06 Potassium 3.8 mmol/L (3.5-5.0) 07/31/25 17:06 Glucose 175.0 mg/dL (70-115) H 07/31/25 17:06 Ionized Calcium 1.2 mmol/L (1.1-1.4) 07/31/25 17:06 O2 Delivery Device Nc 07/31/25 17:06 O2 Liters/Min 7.0 % 07/31/25 17:06 Compressor Station Chief Engineer ID [place] 07/31/25 17:06 Sodium 142 mmol/L (136-145) 08/03/25 03:56 Potassium 3.8 mmol/L (3.5-5.1) 08/03/25 03:56 Chloride 97 mmol/L (98-107) L 08/03/25 03:56 Carbon Dioxide 31 mmol/L (22-29) H 08/03/25 03:56 Anion Gap 17.8 (5-19) 08/03/25 03:56 BUN 21 mg/dL (6-20) H 08/03/25 03:56 Creatinine 0.7 mg/dL (0.5-0.9) 08/03/25 03:56 GFR Calculation 86.6 mL/min (90-130) L 08/03/25 03:56 Glucose 226 mg/dL (65-115) H 08/03/25 03:56 POC Glucose 253 mg/dL (70-110) H 08/03/25 06:13 Estimat Average Glucose 120 07/31/25 16:27 Hemoglobin A1c 5.8 % (4.0-6.0) 07/31/25 16:27 Calculated Osmolality 304 mOsm/kg (285-295) H 08/03/25 03:56 Lactic Acid 1.1 mmol/L (0.5-2.2) 07/31/25 16:27 Calcium 9.7 mg/dL (8.5-10.5) 08/03/25 03:56 Phosphorus 2.6 mg/dL (2.5-4.5) 08/03/25 03:56 Magnesium 2.0 mg/dL (1.7-2.3) 08/03/25 03:56 Total Bilirubin 0.6 mg/dL (0.15-1.2) 08/03/25 03:56 AST 17 U/L (0-32) 08/03/25 03:56 ALT 26 U/L (0-33) 08/03/25 03:56 Alkaline Phosphatase 155 U/L (35-105) H 08/03/25 03:56 Troponin T Baseline 11 ng/L (0-10) H 07/31/25 16:27 Troponin T 120 Minute 11.07 ng/L (0-10) H 07/31/25 20:59 Delta Troponin T 0.07 ABS# (0-10) 07/31/25 20:59 Troponin T Hi Sens 6Hr 9.08 ng/L (0-10) 07/31/25 22:47 Troponin T Hi Sens 6Hr Delta -1.92 ng/L (0-12) L 07/31/25 22:47 C-Reactive Protein 150.0 mg/L (0.0-4.9) H 07/31/25 16:27 NT-Pro-B Natriuret Pep 516 pg/mL (0-125) H 07/31/25 16:27 Total Protein 7.4 g/dL (6.6-8.7) 08/03/25 03:56 Albumin 4.0 g/dL (3.5-5.2) 08/03/25 03:56 Globulin 3.4 g/dL (1.3-4.6) 08/03/25 03:56 Triglycerides 43 mg/dL (0-150) 07/31/25 16:27 Cholesterol 79 mg/dL (0-200) 07/31/25 16:27 LDL Cholesterol, Calc 32 mg/dL (50-129) L 07/31/25 16:27 HDL Cholesterol 38 mg/dL (60-100) L 07/31/25 16:27 LDL/HDL Ratio 0.84 RATIO (0.00-3.22) 07/31/25 16:27 Cholesterol/HDL Ratio 2.08 mg/dL (0.0-4.40) 07/31/25 16:27 Procalcitonin 1.09 ng/mL (0-0.5) H 07/31/25 16:27 TSH 3.11 uIU/mL (0.27-4.20) 07/31/25 16:27 Urine Color Dark yellow (Yellow) A 07/31/25 15:50 Urine Appearance Turbid (CLEAR) A 07/31/25 15:50 Urine pH 5.5 (5-7) 07/31/25 15:50 Ur Specific [place] 1.020 (1.005-1.030) 07/31/25 15:50 Urine Protein 3+ (Negative) A 07/31/25 15:50 Urine Glucose (UA) Negative (Normal) 07/31/25 15:50 Urine Ketones Trace (Negative) 07/31/25 15:50 Urine Blood 3+ (Negative) A 07/31/25 15:50 Urine Nitrate Negative (Negative) 07/31/25 15:50 Urine Bilirubin 1+ (Negative) H 07/31/25 15:50 Urine Urobilinogen 1.0 mg/dL (Negative) 07/31/25 15:50 Ur Leukocyte Esterase 3+ (Negative) A 07/31/25 15:50 Urine RBC 51-100 /hpf (0-2) H 07/31/25 15:50 Urine WBC >100 /hpf (0-5) H 07/31/25 15:50 Ur Squamous Epith Cells 0-5 /hpf (0-5) 07/31/25 15:50 Amorphous Sediment Not Reportable 07/31/25 15:50 Urine Bacteria 4+ /hpf (NONE) H 07/31/25 15:50 Hyaline Casts 10.81 /lpf 07/31/25 15:50 Influenza A (PCR) Negative (Negative) 07/31/25 21:29 Influenza Type B (PCR) Negative (Negative) 07/31/25 21:29 RSV (PCR) Negative (Negative) 07/31/25 21:29 SARS-CoV-2 (PCR) Negative (Negative) 07/31/25 21:29 Vitals Last Vital Signs Temp 98.1 F 08/03/25 07:40 Pulse 96 08/03/25 08:00 Resp 16 08/03/25 08:00 BP 158/82 08/03/25 07:40 Pulse Ox 97 08/03/25 08:00 O2 Del Method Nasal Cannula 08/03/25 08:00 O2 Flow Rate 6 08/03/25 08:00 FiO2 50 07/31/25 20:56 Discharge Plan Discharge Patient Disposition: Home Condition: Stable Prescriptions: New prednisone 20 mg tablet See Rx Instructions .ROUTE .COMPLEX Qty: 11 0RF Rx Instructions: 2 tab for 3 days, then 1 tab for 3 days, then 1/2 tab for 4 days. levofloxacin 750 mg tablet 750 mg PO DAILY 4 Days Qty: 4 0RF Continued albuterol sulfate 90 mcg/actuation HFA aerosol inhaler See Rx Instructions .ROUTE .COMPLEX Qty: 8.5 3RF Dose Instruction: INHALE TWO PUFFS EVERY 6 HOURS NEEDED FOR SHORTNESS OF BREATH or wheezing Rx Instructions: INHALE TWO PUFFS EVERY 6 HOURS NEEDED FOR SHORTNESS OF BREATH or wheezing (DME) lancets Misc See Rx Instructions .MEDSUPPLY Qty: 200 12RF Rx Instructions: Use as directed to prick skin for blood sugar checks 1-2x daily Fasenra Pen 30 mg/mL auto-injector 30 mg SUBCUT .Q8 weeks Qty: 1 6RF Rx Instructions: 30 mg once every 8 weeks (DME) blood-glucose meter [Contour Plus Blue Meter] [facility] [place] See Rx Instructions .Route Qty: 1 4RF Rx Instructions: to check blood sugars 3x a day (DME) Contour Plus Test Strip Strip See Rx Instructions .Route Qty: 100 3RF Rx Instructions: check blood sugar 3x a day citalopram 20 mg tablet See Rx Instructions .ROUTE .COMPLEX Qty: 30 5RF Dose Instruction: TAKE 1 TABLET BY MOUTH EVERY DAY Rx Instructions: TAKE 1 TABLET BY MOUTH EVERY DAY atorvastatin 80 mg tablet See Rx Instructions .ROUTE .COMPLEX Qty: 90 5RF Dose Instruction: TAKE 1 TABLET BY MOUTH EVERY DAY Rx Instructions: TAKE 1 TABLET BY MOUTH EVERY DAY montelukast 10 mg tablet See Rx Instructions .ROUTE .COMPLEX Qty: 90 1RF Dose Instruction: TAKE 1 TABLET BY MOUTH EVERY MORNING FOR breathing Rx Instructions: TAKE 1 TABLET BY MOUTH EVERY MORNING FOR breathing Eliquis 5 mg tablet See Rx Instructions .ROUTE .COMPLEX Qty: 90 3RF Dose Instruction: TAKE 1 TABLET BY MOUTH TWICE DAILY Rx Instructions: TAKE 1 TABLET BY MOUTH TWICE DAILY Trelegy Ellipta 100-62.5-25 mcg blister with device See Rx Instructions .ROUTE .COMPLEX Qty: 60 6RF Dose Instruction: INHALE 1 PUFF EVERY DAY Rx Instructions: INHALE 1 PUFF EVERY DAY IN THE EVENING metoprolol tartrate 75 mg tablet See Rx Instructions .ROUTE .COMPLEX Qty: 180 3RF Dose Instruction: TAKE 1 TABLET BY MOUTH TWICE DAILY Rx Instructions: TAKE 1 TABLET BY MOUTH TWICE DAILY gabapentin 800 mg tablet See Rx Instructions .ROUTE .COMPLEX Qty: 90 2RF Dose Instruction: TAKE 1 TABLET BY MOUTH THREE TIMES DAILY Rx Instructions: TAKE 1 TABLET BY MOUTH THREE TIMES DAILY potassium chloride 20 mEq tablet extended release See Rx Instructions .ROUTE .COMPLEX Qty: 30 1RF Dose Instruction: TAKE 1 TABLET BY MOUTH EVERY DAY at NOON Rx Instructions: TAKE 1 TABLET BY MOUTH EVERY DAY at NOON celecoxib 200 mg capsule See Rx Instructions .ROUTE .COMPLEX Qty: 60 2RF Dose Instruction: take 1 capsule BY MOUTH TWICE DAILY NEEDED FOR PAIN and inflammation Rx Instructions: take 1 capsule BY MOUTH TWICE DAILY NEEDED FOR PAIN and inflammation bumetanide 2 mg tablet See Rx Instructions .ROUTE .COMPLEX Qty: 60 1RF Dose Instruction: TAKE 1 TABLET BY MOUTH TWICE DAILY Rx Instructions: TAKE 2 TABLETS BY MOUTH AT BEDTIME. cyclobenzaprine 10 mg tablet See Rx Instructions .ROUTE .COMPLEX Qty: 120 0RF Dose Instruction: TAKE 1 TABLET BY MOUTH EVERY 6 HOURS NEEDED FOR muscle SPASMS Patient Comments: patient states Dr. Sánchez approved 1 tablet morning and noon, 2 tablets at night Rx Instructions: TAKE 1 TABLET BY MOUTH EVERY 6 HOURS NEEDED FOR muscle SPASMS oxycodone-acetaminophen [Percocet] 10-325 mg tablet 1 tab PO Q8H PRN (Reason: pain) 30 Days Qty: 90 0RF baclofen 10 mg tablet See Rx Instructions .ROUTE .COMPLEX Qty: 90 0RF Dose Instruction: TAKE 1 TABLET BY MOUTH TWICE DAILY NEEDED FOR PAIN Rx Instructions: TAKE 1 TABLET BY MOUTH TWICE DAILY NEEDED FOR PAIN valsartan 80 mg tablet See Rx Instructions .ROUTE .COMPLEX Qty: 30 3RF Dose Instruction: TAKE 1 TABLET BY MOUTH AT BEDTIME Rx Instructions: TAKE 1 TABLET BY MOUTH AT BEDTIME spironolactone 50 mg tablet See Rx Instructions .ROUTE .COMPLEX Qty: 90 1RF Dose Instruction: TAKE 1 TABLET BY MOUTH EVERY MORNING Rx Instructions: TAKE 1 TABLET BY MOUTH EVERY MORNING albuterol sulfate 2.5 mg /3 mL (0.083 %) solution for nebulization 2.5 mg continuous nebulization Q6H Rx Instructions: use 1 vial in nebulizer EVERY 6 HOURS NEEDED FOR SHORTNESS OF BREATH and wheezing diphenhydramine HCl [Benadryl] 25 mg Capsule 25 mg PO BEDTIME guaifenesin [Mucinex] 600 mg Tablet Extended Release 12hr 600 mg PO BID PRN (Reason: Congestion) Discharge Order = DC NOW: Discharge Order (Routine); Ordered 08/03/25 Ordered By: Giancarlo Burgess Other Ambulatory Orders: DME: [employer] (Order) Location: None Selected Ordered By: Bobby Cleaning Referrals: [facility] [Outside] Cally Parikh MD [Physician, Pulmonology] - 08/06/25 10:05 am Referral Note: chronic resp fail This will be a telehealth appt Pal Caballero DO [Primary Care Provider, Family Practice] - 08/14/25 1:15 pm Ezra Abbott MD [Physician, Cardiology] - 09/12/25 2:30 pm Discharge Diet: As Directed and Cardiac Discharge Activity: Increase activity as tolerated Patient Instructions: Prednisone (By mouth), Levofloxacin (By mouth), Pneumonitis (DC), Urinary Tract Infection in Women (ED), Chronic Kidney Disease (DC), Sepsis (DC), Acute Respiratory Failure (ED), Opioid Safety, Patient Portal & [place] Instructions Activity Restrictions/Additional Instructions: Complete antibiotic course prednisone taper to complete treatment for pneumonia and UTI. Continue oxygen at home. Target oxygen saturation 90%. Avoid oxygen saturation is too high. Follow-up with pulmonology in office. Continue diuretics and consider limiting fluid intake to about 1-1/2 L/day to help reduce fluid overload risk. Follow-up with cardiology in office for reassessment. Primary provider recheck your kidney function and electrolytes and follow-up after passing a kidney stone. Low-sodium diet, avoiding soft drinks may help reduce the chance of recurrence of kidney stones. Follow-up with your primary provider regarding incidentally seen noncalcified round nodule in the posterior left lung lobe to set up further imaging like PET/CT. Please follow-up with your primary provider regarding incidentally seen fatty infiltration of the liver with enlargement. Discharge Attestations Time Spent in Discharge Care*: greater than 30 min Quality Metrics Clinical Quality Measures [ No reported AMI, CVA or VTE this stay] Coding Level of Care Code 15058 Total time (in minutes) for Discharge: 40 Diagnoses Diabetes mellitus type 2, uncontrolled, with complications Morbid obesity with BMI of 70 and over, adult E66.01; Z68.45 Stage 2 chronic kidney disease N18.2 Chronic kidney disease stage: stage 2 (GFR 60-89) Obesity hypoventilation syndrome E66.2 Sepsis A41.9 UTI (urinary tract infection) N39.0 Pneumonia J18.9 Acute hypoxic respiratory failure J96.01
--- NOTE | 2025-08-03 11:15 | PC.NURSE ---
meds to bed delivered from [facility]
--- NOTE | 2025-08-03 12:30 | PC.NURSE ---
Discharge Note Patient discharged to home via ambulance accompanied by EMS team. Discharge instructions reviewed with patient and/or inbound sales representative. Mobile pharmacy medications and/or prescriptions provided. Belongings/home medications returned.
== END 2025-08-03 12:35 | disposition home health service (06) | DRG 871 ==
LOC: ER 17:15 → ICU 17:47 → CSU 08-02 10:07
PROVIDERS: Family Medicine; Admitting Provider Family Medicine; Emergency Provider Family Medicine; PCP Family Medicine; Visit Provider Internal Medicine
DX: A41.9 Sepsis, unspecified organism (principal); J18.9 Pneumonia, unspecified organism; J96.21 Acute and chronic respiratory failure with hypoxia; I13.0 Hypertensive heart and chronic kidney disease with heart failure and stage 1 through stage 4 chronic kidney disease, or unspecified chronic kidney disease; I50.32 Chronic diastolic (congestive) heart failure; E66.2 Morbid (severe) obesity with alveolar hypoventilation; Z68.45 Body mass index [BMI] 70 or greater, adult; N39.0 Urinary tract infection, site not specified; R65.20 Severe sepsis without septic shock; E11.65 Type 2 diabetes mellitus with hyperglycemia; E11.22 Type 2 diabetes mellitus with diabetic chronic kidney disease; N18.2 Chronic kidney disease, stage 2 (mild); E78.2 Mixed hyperlipidemia; J45.50 Severe persistent asthma, uncomplicated; I48.91 Unspecified atrial fibrillation; B96.20 Unspecified Escherichia coli [E. coli] as the cause of diseases classified elsewhere; R91.1 Solitary pulmonary nodule; I45.10 Unspecified right bundle-branch block; F32.A Depression, unspecified; K76.0 Fatty (change of) liver, not elsewhere classified; Z99.89 Dependence on other enabling machines and devices; Z99.81 Dependence on supplemental oxygen; Z79.01 Long term (current) use of anticoagulants; Z79.52 Long term (current) use of systemic steroids; Z87.442 Personal history of urinary calculi
CPT/HCPCS: 36415; 36416; 36600; 71045; 74176; 76770; 80048; 80051; 80053; 80061; 81001; 82330; 82805; 82962; 83036; 83605; 83735; 83880; 84100; 84145; 84443; 84484; 85025; 86140; 87040; 87077; 87086; 87186; 87637; 93005; 94640; 94660; 94664; 96372; 97116; 97163; 97167; 97530; J1815; J1938; J2185; J2270; J2405; J2470; J2919; J3372; J3373; J7120; J7512; J7626; J9999